=== PATIENT | female | born 1970 | race Caucasian/White ===

== ENCOUNTER 2017-03-19 08:45 | Inpatient (IN) | payer OTHER ==
[2017-03-19] VITALS (13 sets, daily range): BP systolic 118–138; BP diastolic 72–83; PULSE 75–91; TEMP 36.9–37.1; O2SAT 96–100; Ht 162.6 cm; Wt 80.2 kg
[~2017-03-19] VITALS: Ht 162.6 cm; Wt 80.2 kg
[2017-03-19 09:24] LABS: MEAN CELL VOLUME 88.9 fL (80-100); MEAN CORPUSCULAR HEMOGLOBIN 30.7 pg (25-34); MEAN CORPUSCULAR HGB CONC 34.5 g/dl (32-36); MEAN PLATELET VOLUME 11.1 fL (7.4-10.4); PLATELET COUNT 279 K/uL (130-400); RED BLOOD COUNT 4.95 M/uL (4.2-5.4); WHITE BLOOD COUNT 10.05 K/uL (4.8-10.8)
[2017-03-19 09:38] LABS: PROTHROMBIN TIME (PATIENT) 10.3 SECONDS (9.0-12.0)
[2017-03-19 09:42] LABS: BUN/CREATININE RATIO 12.6 (10-20); CREATININE 0.78 mg/dl (0.60-1.20); POTASSIUM 3.6 mmol/L (3.5-5.1)
[2017-03-19 09:47] LABS: ALB/GLOB RATIO 1.1 (0.9-2); CKMB/CK RATIO 10.6 (0-3.0)
--- NOTE | 2017-03-19 09:47 | DIAGNOSTIC IMAGING REPORT ---
CHEST ONE VIEW PORTABLE CLINICAL HISTORY: CHEST DISCOMFORT COMPARISON STUDY: No previous studies for comparison. FINDINGS: The heart is the upper limits of normal in size. There is no overt failure. There is no focal pulmonary consolidation. There are no pleural effusions.[ IMPRESSION: No active disease in the chest. Electronically signed by: Gonzalo Barnett M.D. 03/19/2017 9:45 AM Dictated Date/Time: 03/19/2017 9:45 AM
[2017-03-19] MEDS ORDERED: HEPARIN SOD 5000 UNIT/0.5 ML CARP ONE (10:15)
[2017-03-19] MEDS ORDERED: HEPARIN 25000 UNIT/500 ML D5W ONE (10:15)
[2017-03-19] MEDS ORDERED: ONDANSETRON INJ 2 MG/ML 2 ML VIAL IV PRN ×2 (10:15→12:00)
[2017-03-19] MEDS ORDERED: METOPROLOL TARTRATE 50 MG TAB PO ONE (10:15)
[2017-03-19] MEDS ORDERED: NITROGLYCERIN 0.4 MG SL PER TAB CHARGE SL PRN (10:15)
[2017-03-19] MEDS ORDERED: ASPIRIN 324 MG CHEW ONE (10:17)
[2017-03-19] MEDS ORDERED: SODIUM CHLORIDE 0.9% 1000ML 1,000 ML IV SCH (10:28)
[2017-03-19] MEDS ORDERED: DC ALL ANTICOAGULANTS ONE (10:30)
[2017-03-19] MEDS ORDERED: NiCARDipine HCL INJ 2.5 MG/ML 10 ML AMP ONE (10:35)
[2017-03-19] MEDS ORDERED: NITROGLYCERIN/D5W 100MCG/ML 20ML SYR ONE (10:36)
[2017-03-19] MEDS ORDERED: FENTANYL CITRATE INJ 50 MCG/1 ML 2 ML VIAL ONE (10:36)
[2017-03-19] MEDS ORDERED: MIDAZOLAM HCL 1 MG/ML 2ML VIAL ONE (10:36)
[2017-03-19] MEDS ORDERED: HEPARIN SOD (PORCINE) 1000 UNIT/ML 10 ML VIAL ONE (10:36)
--- NOTE | 2017-03-19 10:50 | CARDIOLOGY CONSULTATION ---
DATE OF CONSULTATION: 03/19/2017 [facility] REASON FOR CONSULTATION: Chest pain, non-STEMI. HISTORY OF PRESENT ILLNESS: This is a 46-year-old female with no prior history of heart disease and minimal risk factors. Last evening about 6:00 p.m. she developed severe retrosternal chest discomfort which lasted until approximately 11:00 p.m. and spontaneously resolved. She got up this morning and went to work. She told her coworkers about her experience and they insisted that she come to the Emergency Department. After admission here she has been pain free; however, her EKG suggests a recent inferior lateral wall infarct and her point of care cardiac troponin is 9. ALLERGIES: SULFA ANTIBIOTICS. PAST MEDICAL HISTORY: The patient has minimal past medical history. No prior history of heart disease, strokes, kidney disease, diabetes, hypertension, hypercholesterolemia. SOCIAL HISTORY: The patient lives with her . She is a nonsmoker. FAMILY MEDICAL HISTORY: Not significant for early ischemic heart disease. REVIEW OF SYSTEMS: A 10-point review of systems is negative except for the history of chief complaint. PHYSICAL EXAMINATION: GENERAL: She is alert and oriented in no acute distress. VITAL SIGNS: Blood pressure is 207/115, pulse is regular at 70. She is afebrile. HEENT: She is normocephalic. Pupils are equal and reactive to light. Extraocular muscles are intact bilaterally. NECK: The neck veins are flat. Carotids have good upstrokes bilaterally without bruits. Thyroid is nonpalpable. RESPIRATORY: Breath sounds equal bilaterally and clear to auscultation. CARDIOVASCULAR: Heart has a regular rhythm. Normal S1, S2. No S3, S4. No cardiac rubs or murmurs. GASTROINTESTINAL: Abdomen is soft, nontender without organomegaly. EXTREMITIES: Free of edema, digital clubbing, or cyanosis. NEUROLOGIC: Grossly intact. SKIN: Warm to touch. LYMPH NODES: Negative to palpation. LABORATORY DATA: Hemoglobin is 15.2, creatinine is 0.78, potassium is 3.6. Troponin is 9.65. IMPRESSION: 1. Non-STEMI. 2. Hypertension. RECOMMENDATIONS: The patient will receive Lopressor in the Emergency Department, which will hopefully improve her hypertension. We will provide additional medications as needed. She will also need a cardiac catheterization. I have explained the risk, benefit and intent of the procedure to her including the potential for a catheter based intervention such as balloon angioplasty or intracoronary stenting. The patient is willing to proceed. She will sign a consent and will be taken to the cardiac catheterization lab. I will have further recommendations following the above.
[2017-03-19 10:57] LABS: MAGNESIUM 2.2 mg/dl (1.8-2.4)
[2017-03-19] MEDS ORDERED: METOPROLOL TARTRATE 1 MG/ML VIAL ONE ×2 (11:17→11:33)
[2017-03-19] MEDS ORDERED: HydrALAZINE HCL 20 MG/ML VIAL ONE ×2 (11:24→11:36)
[2017-03-19 11:28] LABS: ESTIMATED AVERAGE GLUCOSE 103 mg/dl; HA1C FLAG Normal (Normal)
[2017-03-19] MEDS ORDERED: SODIUM CHLORIDE 0.9% 1000ML 250 ML IV PRN (11:46)
--- NOTE | 2017-03-19 11:46 | History and Physical ---
History & Physical Date & Time of Service: Mar 19, 2017 at 11:08 Chief Complaint: Possible Small Heart Attack Primary Care Physician: America Lazaro M.D. (MEDICAL) History of Present Illness Source: patient This is a 46yo female with no PMH who presents after experiencing chest pain and SOB last evening. Patient was in her normal state of health until 6pm, when she woke up from a nap with severe pressure on her central chest with radiation down both arms. Describes pain in arms as aching and too heavy to lift. Pain did not subside with rest. When patient got up and started to walk towards kitchen, she noticed that she was short of breath and nauseous. Had 2 episodes of vomiting over the next few hours while doing chores around the house. Went to bed early to rest in a reclined position. Pain spontaneously resolved around 11pm and patient was able to sleep. Went to work this morning and was encouraged to call her doctor about the prior event. Was then encouraged to come to the ER for further evaluation. Patient denies any previous heart disease, chest pain or HTN. Does not take any medications. Denies any current headache, CP, SOB, sweating, nausea/vomiting. POC troponin is 9 and an EKG suggests a possible recent inferior lateral wall infarct. Patient was taken to pathology laboratory aide before exam could be completed. Will resume once patient is on the floor. Social History Smoking Status: Never Smoker Multi-Drug Resistant Organisms History of MDRO: No Allergies Coded Allergies: Sulfa Antibiotics (Unverified Adverse Reaction, Intermediate, swelling, ) Home Medications No Active Prescriptions or Reported Meds Review of Systems Ten systems reviewed and negative except as noted in the HPI. Physical Exam Vital Signs Date Time Temp Pulse Resp B/P (MAP) Pulse Ox O2 Delivery O2 Flow Rate FiO2 03/19/17 10:26 85 16 226/126 98 Room Air 03/19/17 10:22 97 Room Air 03/19/17 09:56 97 Room Air 03/19/17 09:56 97 Room Air 03/19/17 09:54 70 16 207/115 97 Room Air 03/19/17 09:45 74 03/19/17 09:18 74 03/19/17 09:01 36.6 77 16 197/136 98 Room Air General Appearance: WD/WN, no apparent distress Head: normocephalic Eyes: normal inspection, PERRL ENT: hearing grossly normal Neck: supple, no adenopathy, trachea midline Respiratory/Chest: chest non-tender, lungs clear, normal breath sounds, no respiratory distress, no accessory muscle use Cardiovascular: regular rate, rhythm, no murmur, normal peripheral pulses Abdomen/GI: normal bowel sounds, non tender, soft, no organomegaly Extremities/Musculoskelatal: normal inspection, no calf tenderness, normal capillary refill, no pedal edema Neurologic/Psych: alert, normal mood/affect, oriented x 3 Skin: normal color, warm/dry Diagnostics Laboratory Results Results Past 24 Hours Test 03/19/17 09:05 03/19/17 09:23 Range/Units White Blood Count 10.05 4.8-10.8 K/uL Red Blood Count 4.95 4.2-5.4 M/uL Hemoglobin 15.2 12.0-16.0 g/dL Hematocrit 44.0 37-47 % Mean Corpuscular Volume 88.9 80-100 fL Mean Corpuscular Hemoglobin 30.7 25-34 pg Mean Corpuscular Hemoglobin Concent 34.5 32-36 g/dl RDW Standard Deviation 42.3 36.4-46.3 fL RDW Coefficient of Variation 13.1 11.5-14.5 % Platelet Count 279 130-400 K/uL Mean Platelet Volume 11.1 7.4-10.4 fL Prothrombin Time 10.3 9.0-12.0 SECONDS Prothromb Time International Ratio 1.0 0.9-1.1 Activated Partial Thromboplast Time 27.1 21.0-31.0 SECONDS Partial Thromboplastin Ratio 1.0 D-Dimer 190 0-500 ug/L FEU Sodium Level 137 136-145 mmol/L Potassium Level 3.6 3.5-5.1 mmol/L Chloride Level 106 98-107 mmol/L Carbon Dioxide Level 25 21-32 mmol/L Anion Gap 6.0 3-11 mmol/L Blood Urea Nitrogen 10 7-18 mg/dl Creatinine 0.78 0.60-1.20 mg/dl Est Creatinine Clear Calc Drug Dose 92.4 ml/min Estimated GFR () 104.9 Estimated GFR (Non- 90.5 BUN/Creatinine Ratio 12.6 10-20 Random Glucose 91 70-99 mg/dl Calcium Level 9.0 8.5-10.1 mg/dl Magnesium Level 2.2 1.8-2.4 mg/dl Total Bilirubin 0.7 0.2-1 mg/dl Aspartate Amino Transf (AST/SGOT) 65 15-37 U/L Alanine Aminotransferase (ALT/SGPT) 21 12-78 U/L Alkaline Phosphatase 62 45-117 U/L Total Creatine Kinase 416 26-192 U/L Creatine Kinase MB 44.0 0.5-3.6 ng/ml Creatine Kinase MB Ratio 10.6 0-3.0 Troponin I 11.000 0-0.045 ng/ml Total Protein 7.6 6.4-8.2 gm/dl Albumin 3.9 3.4-5.0 gm/dl Globulin 3.7 2.5-4.0 gm/dl Albumin/Globulin Ratio 1.1 0.9-2 Bedside Troponin I 9.650 0-0.045 ng/ml CXR normal EKG Normal sinus rhythm Left axis deviation Minimal voltage criteria for LVH, may be normal variant Inferior infarct , age undetermined T wave abnormality, consider anterolateral ischemia No prior EKG available Impression Assessment and Plan This is a 46yo female with no PMH who presents after experiencing chest pain and SOB last evening. Mild CAD: -Initial troponin of 11. -EKG-Normal sinus rhythm with LAD, Minimal voltage criteria for LVH, Inferior infarct , age undetermined T wave abnormality, consider anterolateral ischemia -CXR- WNL -Aspirin and Lopressor given -Cardio consulted and cardiac cath performed by Dr. Snowden -Post-cath diagnosis of mild CAD, normal except for very distal branch of RCA Medical management recommended -Echo obtained. EF of 65-70% with mild LVH -Continue aspirin, metoprolol and high intensity statin -Monitor on tele Hypertensive Emergency: -No h/o HTN -BP 207/115 on admission -Evidence of end organ damage with elevated troponin -Given 25 mg lopressor prior to cardiac catheterization -Metoprolol increased to 50mg BID, Lisinopril 10 added -Will monitor and adjust as necessary Non-sustained Vtach on EKG: -Per ER oc, patient with a few seconds of VT -Given Mg and K with IVF -On tele Code status: FULL PCP: [place] Dispo: Telemetry. Discharge planning ordered. Level of Care Telemetry Advanced Directives Existing Living Will: No Existing Power of All Round [place]: No Resuscitation Status FULL RESUSCITATION VTE Prophylaxis VTE Risk Assessment Done? Y/N: Yes Risk Level: Moderate Given or contraindicated: Other Anticoagulation
[2017-03-19] MEDS ORDERED: ATROPINE SULFATE 0.1 MG/ML 5ML SYR IV PRN (12:00)
--- NOTE | 2017-03-19 12:04 | Cardiac Catheterization ---
Procedure Note Procedure Date Mar 19, 2017. Pre-Procedure Diagnosis Non STEMI AUC Score 9 Post-Procedure Diagnosis Mild CAD, Normal LV Systolic Function, Elevated Intracardiac Pressures Procedure(s) Performed Coronary Angiography, Left Heart Cath, LV Angiography Online Merchand[employer] Coordinator Dr. Snowden Event Sales Assistant(s) None Estimated Blood Loss None Medication(s) Hydralazine, Metoprolol, Versed, Lidocaine 1% Summary of Findings Normal coronaries except for a very distal branch of the RCA. Medical management. Hemodynamics Rest Ao: 191/105 Final Ao: 163/88 LV: 174/23 Recommendations Medical therapy and/or Counseling Specimens None Radiation Exposure (mGy) 1235 Contrast (mls) 115 Fluids (cc crystalloids) 60 Procedural Complication(s) None Disposition [employer] Consultant Holding/Recovery ACC Data Cardiac Status Clinical evaluation leading to the procedure CAD Presntation: Non STEMI Anginal Classification: No symptoms Heart Failure: No Cardiogenic Shock w/in 24Hrs: No Cardiac Arrest w/in 24Hrs: No Imaging studies past 6 months: Yes Stress studies past 6 months: No Cardiac CTA: No Coronary Anatomy Dominant: Right Left Main (% Stenosis): Normal LAD (% Stenosis): Normal Circumflex (% Stenosis): Normal R PDA (% Stenosis): Distal (90) Left Ventricular Angiography EF (%): 60 Wall Motion: Apical (Hypokinetic) Mitral Regurgitation: None Diagnostic Status: Urgent Closure Device Percutaneous Entry Location: Femoral Closure Device: Mynx Recommendations: Medical therapy and/or Counseling
--- NOTE | 2017-03-19 12:46 | ECHOCARDIOGRAM REPORT ---
*NOTICE TO RECEIVING [employer] This information is strictly Confidential and protected under [place] law. [place] law prohibits you from making any further disclosure of this information unless further disclosure is expressly permitted by the written consent of the person to whom it pertains or is authorized by law. A general authorization for the release of medical or other information is not sufficient for this purpose. Hospital accepts no responsibility if the information is made available to any other person, INCLUDING THE PATIENT. Interpretation Summary * Name: STEWART RODAS Study Date: 03/19/2017 10:29 AM BP: 207/115 mmHg * Patient Location: [facility] HR: 70 * : 1970 (M/d/yyyy) Gender: Female Height: 64 in * Age: 46 yrs Ethnicity: CA Weight: 180 lb * Ordering Physician: Kulwinder Dent * Performed By: Lexus Lipscomb * * Reason For Study: CHEST PAIN * BSA: 1.9 m2 * -- Conclusions -- * The left ventricle is normal in size. * There is mild concentric left ventricular hypertrophy. * There is mild to moderate apical wall hypokinesis. * Ejection Fraction = 65-70%. * The right ventricular systolic function is normal. Procedure Details * A complete two-dimensional transthoracic echocardiogram was performed (2D, M-mode, Doppler and color flow Doppler). Left Ventricle * The left ventricle is normal in size. * There is mild concentric left ventricular hypertrophy. * Ejection Fraction = 65-70%. * There is mild to moderate apical wall hypokinesis. Right Ventricle * The right ventricle is normal size. * The right ventricular systolic function is normal. Atria * The left atrial size is normal. * Right atrial size is normal. * The interatrial septum is intact with no evidence for an atrial septal defect. Mitral Valve * The mitral valve is normal in structure and function. Tricuspid Valve * The tricuspid valve is normal in structure and function. Aortic Valve * The aortic valve is normal in structure and function. Pulmonic Valve * The pulmonic valve is not well visualized. * There is no significant pulmonary regurgitation. Great Vessels * The aortic root and proximal ascending aorta are normal sized. MMode 2D Measurements and Calculations IVSd 1.1 cm IVSs 1.9 cm LVIDd 4.9 cm LVIDs 3.0 cm LVPWd 1.3 cm LVPWs 2.1 cm IVS/LVPW 0.82 FS 39.2 % EDV(Teich) 111.0 ml ESV(Teich) 33.8 ml EF(Teich) 69.6 % EDV(cubed) 115.2 ml ESV(cubed) 25.9 ml EF(cubed) 77.5 % % IVS thick 77.7 % % LVPW thick 57.5 % LV mass(C)d 225.5 grams LV mass(C)dI 120.5 grams/m\S\2 LV mass(C)s 261.7 grams LV mass(C)sI 139.9 grams/m\S\2 SV(Teich) 77.2 ml SI(Teich) 41.3 ml/m\S\2 SV(cubed) 89.3 ml SI(cubed) 47.8 ml/m\S\2 ACS 1.6 cm LA dimension 3.9 cm asc Aorta Diam 3.4 cm LVOT diam 1.9 cm LVOT area 2.9 cm\S\2 LVAd ap4 25.2 cm\S\2 LVLd ap4 6.8 cm EDV(MOD-sp4) 76.0 ml EDV(sp4-el) 78.8 ml LVAs ap4 12.1 cm\S\2 LVLs ap4 5.0 cm ESV(MOD-sp4) 24.1 ml ESV(sp4-el) 24.9 ml EF(MOD-sp4) 68.3 % EF(sp4-el) 68.4 % LVAd ap2 26.0 cm\S\2 LVLd ap2 7.3 cm EDV(MOD-sp2) 75.0 ml EDV(sp2-el) 78.9 ml LVAs ap2 13.3 cm\S\2 LVLs ap2 6.0 cm ESV(MOD-sp2) 25.5 ml ESV(sp2-el) 25.0 ml EF(MOD-sp2) 66.1 % EF(sp2-el) 68.3 % LVLd %diff 6.3 % EDV(MOD-bp) 78.7 ml LVLs %diff 16.6 % ESV(MOD-bp) 26.3 ml EF(MOD-bp) 66.6 % SV(MOD-sp4) 51.9 ml SI(MOD-sp4) 27.7 ml/m\S\2 SV(MOD-sp2) 49.6 ml SI(MOD-sp2) 26.5 ml/m\S\2 SV(MOD-bp) 52.5 ml SI(MOD-bp) 28.0 ml/m\S\2 SV(sp4-el) 53.9 ml SI(sp4-el) 28.8 ml/m\S\2 SV(sp2-el) 53.9 ml SI(sp2-el) 28.8 ml/m\S\2 Doppler Measurements and Calculations MV E max edgar 89.8 cm/sec MV A max edgar 78.9 cm/sec MV E/A 1.1 MV dec time 0.23 sec Ao V2 max 117.4 cm/sec Ao max PG 5.5 mmHg Ao max PG (full) 3.1 mmHg JJUU(V,A) 1.9 cm\S\2 JUJU(V,D) 1.9 cm\S\2 LV V1 max PG 2.4 mmHg LV V1 max 77.0 cm/sec MR max edgar 278.2 cm/sec MR max PG 31.0 mmHg PA V2 max 76.0 cm/sec PA max PG 2.3 mmHg TR max edgar 182.0 cm/sec
--- NOTE | 2017-03-19 13:36 | EMERGENCY ROOM VISIT NOTE ---
History First contact with patient: 09:23 Chief Complaint: CARDIAC ASSESSMENT Stated Complaint: POSSIBLE SMALL HEART ATTACK Nursing Triage Summary: PT HERE WITH BILATERAL ARM HEAVINESS AND CHEST DISCOMFORT, ONE EMESIS SINCE LAST PM. PT STATES SX ARE IMPROVED THIS AM. PT STATES FELT SOMEWHAT SOB. PT DENIES ANY MEDICAL HISTORY OR PROBLEMS. PT STATES FELT IF SHE COULD NOT USE HER ARMS LAST PM. History of Present Illness The patient is a 46 year old female who presents to the Emergency Room with complaints of substernal chest pain and bilateral upper extremity heaviness. The patient reports that she noticed discomfort last evening around 6 PM. She then laid down for a short nap before getting up to fix dinner. The patient reports that the pain then returned and was much worse. She also felt nauseated. She denied any diaphoresis, headache, jaw pain, neck pain or back pain. She told her that she did not feel well. The patient then went to bed and did not have any additional chest discomfort around 11 PM. When she woke up this morning, she reported mild persistent and intermittent substernal pain radiating to the left shoulder. The patient presents to the emergency department for further evaluation. The patient denies any personal cardiopulmonary history. She denies tobacco use. The patient reports that she is otherwise healthy except for history of migraines. She denies any strong family history of coronary artery disease or pulmonary emboli. The patient rates her discomfort a 2 out of 10. Review of Systems HEENT: Denies dizziness, visual problems, hearing loss, tinnitus. Denies difficulty swallowing or oral lesions. PULMONARY: Denies cough, shortness of breath, sputum production or hemoptysis. CARDIOVASCULAR: Denies preceding palpitations, dyspnea on exertion, orthopnea or peripheral edema. GASTROINTESTINAL: Denies diarrhea, constipation, vomiting, or abdominal pain. GENITOURINARY: Denies dysuria, frequency, urgency or nocturia. NEUROLOGIC: Denies history of epilepsy, CVA, TIA or chronic headaches. MUSCULOSKELETAL: Denies history of joint tenderness/swelling. SKIN: Denies rashes or lesions. PSYCHIATRIC: Denies history of depression or mental illness. HEMATOLOGIC: No ecchymosis or petechiae noted. ENDOCRINE: Denies history of diabetes or thyroid disorders. Past Medical/Surgical History Medical Problems: (1) NSTEMI (non-ST elevated myocardial infarction) Medical Problems: (1) Migraines (2) NSTEMI (non-ST elevated myocardial infarction) Surgical Problems: (1) No history of previous surgery Family History Unremarkable Social History Smoking Status: Never Smoker Alcohol Use: occasionally Marital Status: Housing Status: lives with family Occupation Status: employed Current/Historical Medications No Active Prescriptions or Reported Meds Physical Exam Vital Signs Date Time Temp Pulse Resp B/P (MAP) Pulse Ox O2 Delivery O2 Flow Rate FiO2 03/19/17 13:00 82 16 114/79 (91) 98 Room Air 03/19/17 12:45 84 16 113/86 (95) 98 Room Air 03/19/17 12:30 85 16 125/68 (87) 98 Room Air 03/19/17 12:15 85 16 124/69 (87) 100 Room Air 03/19/17 12:00 87 16 130/68 (88) 100 Room Air 03/19/17 11:55 88 16 132/72 (92) 100 Room Air 03/19/17 11:50 Room Air 03/19/17 11:45 Room Air 03/19/17 11:40 83 16 159/89 (112) 97 Room Air 03/19/17 10:26 85 16 226/126 98 Room Air 03/19/17 10:22 97 Room Air 03/19/17 09:56 97 Room Air 03/19/17 09:56 97 Room Air 03/19/17 09:54 70 16 207/115 97 Room Air 03/19/17 09:45 74 03/19/17 09:18 74 03/19/17 09:01 36.6 77 16 197/136 98 Room Air Pain Rating (0-10): 1.0 Physical Exam CONSTITUTIONAL: Healthy and well nourished. Alert and oriented X 3 with positive affect. Patient does not appear in any acute distress on exam. HEENT: Normocephalic, atraumatic. Pupils equal, round and reactive. No scleral icterus or conjunctival injection. NECK: Full active range of motion without discomfort. No JVD or carotid bruits. RESPIRATORY: Clear to auscultation bilaterally with no wheezing, crackles, rhonchi or stridor. CARDIOVASCULAR: Regular rate and rhythm with no murmurs, rubs or gallops. GASTROINTESTINAL: Bowel sounds present in all quadrants. MUSCULOSKELETAL: Full range of motion of all joints without discomfort. No tenderness to palpation across the left anterior chest wall or costochondral joints. No worsening pain with range of motion of the shoulders. INTEGUMENTARY: No rash or other significant dermatologic conditions noted. HEMATOLOGIC: No ecchymosis or petechiae noted. NEUROLOGIC: Cranial nerves II-XII grossly intact. No focal neurologic deficits noted. Medical Decision & Procedures ER Provider Diagnostic Interpretation: My interpretation of an ECG shows inverted T waves in anterolateral leads My interpretation of a portal chest x-ray does not show any consolidations, pneumothorax or cardiomegaly. Radiologist report is as follows: CHEST ONE VIEW PORTABLE CLINICAL HISTORY: CHEST DISCOMFORT COMPARISON STUDY: No previous studies for comparison. FINDINGS: The heart is the upper limits of normal in size. There is no overt failure. There is no focal pulmonary consolidation. There are no pleural effusions.[ IMPRESSION: No active disease in the chest. Laboratory Results 03/19/17 09:05 03/19/17 09:05 Test 03/19/17 09:05 03/19/17 09:23 Red Blood Count 4.95 M/uL (4.2-5.4) Mean Corpuscular Volume 88.9 fL (80-100) Mean Corpuscular Hemoglobin 30.7 pg (25-34) Mean Corpuscular Hemoglobin Concent 34.5 g/dl (32-36) RDW Standard Deviation 42.3 fL (36.4-46.3) RDW Coefficient of Variation 13.1 % (11.5-14.5) Mean Platelet Volume 11.1 fL (7.4-10.4) Prothrombin Time 10.3 SECONDS (9.0-12.0) Prothromb Time International Ratio 1.0 (0.9-1.1) Activated Partial Thromboplast Time 27.1 SECONDS (21.0-31.0) Partial Thromboplastin Ratio 1.0 D-Dimer 190 ug/L FEU (0-500) Anion Gap 6.0 mmol/L (3-11) Est Creatinine Clear Calc Drug Dose 92.4 ml/min Estimated GFR () 104.9 Estimated GFR (Non- 90.5 BUN/Creatinine Ratio 12.6 (10-20) Estimated Average Glucose 103 mg/dl Hemoglobin A1c 5.2 % (4.5-5.6) Calcium Level 9.0 mg/dl (8.5-10.1) Magnesium Level 2.2 mg/dl (1.8-2.4) Total Bilirubin 0.7 mg/dl (0.2-1) Aspartate Amino Transf (AST/SGOT) 65 U/L (15-37) Alanine Aminotransferase (ALT/SGPT) 21 U/L (12-78) Alkaline Phosphatase 62 U/L (45-117) Total Creatine Kinase 416 U/L (26-192) Creatine Kinase MB 44.0 ng/ml (0.5-3.6) Creatine Kinase MB Ratio 10.6 (0-3.0) Troponin I 11.000 ng/ml (0-0.045) Total Protein 7.6 gm/dl (6.4-8.2) Albumin 3.9 gm/dl (3.4-5.0) Globulin 3.7 gm/dl (2.5-4.0) Albumin/Globulin Ratio 1.1 (0.9-2) Bedside Troponin I 9.650 ng/ml (0-0.045) The above labs were reviewed. Bedside troponin was 9.65, with hospital labs showing a troponin of 11. CK-MB and CPK are also elevated. D-dimer is normal, as is remaining electrolytes. Medications Administered Medications (Trade) Dose Ordered Sig/Jolanta Route Start Time Stop Time Status Last Admin Dose Admin Metoprolol Tartrate (Lopressor Tab) 25 mg NOW ONCE PO 03/19/17 10:15 03/19/17 10:16 DC 03/19/17 10:25 25 MG Aspirin (Aspirin Chew) 324 mg STK-MED ONCE .ROUTE 03/19/17 10:17 03/19/17 10:18 DC 03/19/17 10:21 324 MG ED Course Patient history and physical exam were performed. Nurse's notes were reviewed. Vital signs were reviewed, showing a blood pressure 197/136. Pulse rate in O2 saturation are otherwise normal. The patient does not appear in any acute distress. IV access was established prior to my exam, and labs were drawn and ordered per nursing protocol. Immediately after I discussed presenting symptoms with the patient, and performed a physical exam, I was advised by the nurse that the patient's bedside troponin was markedly elevated. Review of the ECG shows anterolateral ischemia. At this point, the patient was administered aspirin 325 mg. I then was notified by our ECG monitor that the patient also had a short duration of ventricular tachycardia, followed by some PVCs. I did review that monitor strip which does indeed show evidence for ventricular tachycardia of less than 2 seconds. At this point, a stat consultation with Dr. Snowden, [facility] orthopedic designer was obtained. Dr. Snowden came to the emergency department, and will be taking the patient for cardiac catheterization Dr. Snowden requested no initial heparin dosing, and reported that he would manage the patient's blood pressure. I also called the [facility] hospitalist service to advise them of the patient's condition and plan for cardiac catheterization. Please see their dictations for further treatment and final disposition. Medical Decision Patient presents to the emergency department with complaint of substernal chest pain with bilateral upper extremity heaviness. The patient does have a markedly elevated troponin, an ECG showing anterolateral ischemia. There was no ST elevation, making this an NSTEMI. D-dimer is normal, therefore I do not suspect pulmonary emboli. The patient has no evidence for pneumothorax or pneumonia on chest x-ray. Medication Reconcilliation Current Medication List: was personally reviewed by me Blood Pressure Screening Patient's blood pressure: Elevated blood pressure Blood pressure disposition: Referred to PCP Impression Primary Impression: NSTEMI (non-ST elevated myocardial infarction) Critical Care I have personally spent greater than 30 minutes of critical care time in the direct management of this patient. This includes bedside care, interpretation of diagnostic studies, and testing, discussion with consultants, patient, and family members, and other required patient management activities. This 30 minutes is in excess of all separately billable procedures. Departure Information Prescriptions No Active Prescriptions or Reported Meds Referrals America Lazaro M.D. (MEDICAL) (PCP) Patient Instructions My [facility]
[2017-03-19] MEDS: SODIUM CHLORIDE 0.9% 1000ML 1,000 ML IV SCH ×2 (14:18→21:39)
[2017-03-19] MEDS: MAGNESIUM SULFATE 1GM / D5W 1 GM in PREMIXED IN D5W 100 ML IV SCH ×2 (14:18→15:37)
[2017-03-19] MEDS: POTASSIUM CHLR 10 MEQ / WTR 10 MEQ in PREMIXED WATER 100 ML IV SCH ×2 (14:18→15:37)
[2017-03-19] MEDS ORDERED: POTASSIUM CHLORIDE 20 MEQ TABCR PO ONE (15:00)
[2017-03-19] MEDS ORDERED: LISINOPRIL 10 MG TAB PO ONE (15:00)
[2017-03-19] MEDS: ACETAMINOPHEN 325 MG TAB PO PRN ×2 (15:43→21:40)
[2017-03-19 16:39] LABS: CKMB/CK RATIO 9.3 (0-3.0)
--- NOTE | 2017-03-19 16:55 | History and Physical ---
History & Physical Date of Service Mar 19, 2017. History & Physical This is a 46 year old female with no PMH presented with chest pain the night prior to arrival; she stated that the pain was very nonspecific, towards the center of her chest with no radiation. She tried to work through it, but there was some lingering chest pain so she presented to the ER this morning; found to have significant elevation in her blood pressure SBP >200/100; her initial cardiac enzymes came back >9.0. She was given metoprolol and immediately taken to a lab specialist. Catheterization only showed mild CAD at the distal RCA and medical management was recommended. VITALS: Last Vital Signs Documentation Date Time Temp Pulse Resp B/P (MAP) Pulse Ox O2 Delivery O2 Flow Rate FiO2 03/19/17 16:00 Room Air 03/19/17 15:30 82 16 133/77 (95) 100 03/19/17 15:15 36.9 GEN: no acute distress, resting comfortably HEENT: NC/AT, EOMI CVS: +S1, S2, RRR LUNGS: CTA b/l, no wheezing ABD: soft, NT/ND EXT: no edema NEURO: CN II-XII Mild CAD pre-cath diagnosis was NSTEMI, though only mild CAD was seen on cath, no stenting, no procedures necessary medical management recommended, so we will continue aspirin 81mg, b-nery, high intensity statin at this time monitor in tele appreciate cardiology input Hypertensive Urgency elevated troponin could have been from hypertensive urgency with SBP > 200/100 given metoprolol and dose is being adjusted currently to 50mg BID as per cardiology, Lisinopril added monitor overnight and adjust as needed NSVT patient had a few seconds of V-tach as per ED doctor when she arrived given IV potassium and magnesium monitor in tele
[2017-03-19] MEDS ORDERED: METOPROLOL TARTRATE 25 MG TAB PO SCH (21:00)
[2017-03-19] MEDS: METOPROLOL TARTRATE 50 MG TAB PO SCH (21:49)
[2017-03-20 01:58] LABS: CKMB/CK RATIO 9.8 (0-3.0)
[2017-03-20] MEDS: ACETAMINOPHEN 325 MG TAB PO PRN ×2 (03:47→16:48)
[2017-03-20 04:06] VITALS: BP 155/84; PULSE 83; TEMP 36.9; O2SAT 97
[2017-03-20 07:28] LABS: CHOLESTEROL/HDL RATIO 4.2
[2017-03-20 07:38] VITALS: BP 152/83; PULSE 78; TEMP 37; O2SAT 97
[2017-03-20] MEDS: ASPIRIN 81 MG ECTAB PO SCH (08:54)
[2017-03-20] MEDS: METOPROLOL TARTRATE 50 MG TAB PO SCH ×2 (08:55→20:46)
[2017-03-20] MEDS ORDERED: ATORVASTATIN 40 MG TAB PO SCH (09:00)
[2017-03-20] MEDS ORDERED: ASPIRIN 81 MG ECTAB PO SCH (09:00)
[2017-03-20] MEDS ORDERED: LISINOPRIL 10 MG TAB PO SCH (09:00)
[2017-03-20] MEDS: ATORVASTATIN 10 MG TAB PO SCH (09:06)
[2017-03-20] MEDS ORDERED: LISINOPRIL 20 MG TAB PO SCH (09:30)
--- NOTE | 2017-03-20 10:01 | PROGRESS NOTE ---
DATE: 03/20/2017 SUBJECTIVE: The patient is a 46-year-old female who presented with a non-STEMI due to malignant hypertension. She was markedly hypertensive in the Emergency Department which has progressively improved with treatment. Her cardiac catheterization essentially shows normal coronary arteries except for very distal tiny branch of the PDA that was most likely the index artery. I believe this pathology is associated to untreated hypertension. She has had no further chest pain since admission. She has no other complaints today. OBJECTIVE: GENERAL: She is alert and oriented, no acute distress. VITAL SIGNS: Blood pressure 150/80, pulse is regular at 78. She is afebrile. HEENT: She is normocephalic. Pupils are equal and reactive to light. Extraocular muscles are intact bilaterally. NECK: The neck veins are flat. Carotids have good upstrokes bilaterally without bruits. Thyroid is nonpalpable. RESPIRATORY: Breath sounds equal bilaterally and clear to auscultation. CARDIOVASCULAR: Heart has a regular rhythm. Normal S1, S2. No S3, S4. No cardiac rubs, murmurs. GASTROINTESTINAL: Abdomen is soft, nontender without organomegaly. EXTREMITIES: Free of edema, digit clubbing, or cyanosis. NEUROLOGIC: Grossly intact. SKIN: Warm to touch. LYMPH NODES: Negative to palpation. IMPRESSION: 1. Non-ST elevation myocardial infarction. 2. Malignant hypertension. RECOMMENDATIONS: I bump up her lisinopril to 20 mg daily to better control her hypertension. Her lipids panel indicates that she does not have severe hypercholesterolemia and at this point I think it is best that we lower her from atorvastatin of 80 daily to 10 mg daily. I would not put her on Plavix because of her hypertension. I would continue with 81 mg of aspirin. She should ambulate today in the hallway. If all goes well, then we can discharge her tomorrow to outpatient followup.
[2017-03-20 11:28] VITALS: BP 155/86; PULSE 67; TEMP 37; O2SAT 96
--- NOTE | 2017-03-20 11:39 | Progress Note ---
Subjective Date of Service: Mar 20, 2017. Subjective Pt evaluation today including: conversation w/ patient, physical exam, lab review, review of studies, review of inpatient medication list Saw/examined the patient in room 230 No problems/issues to note today Denies chest pain/shortness of breath Review of Systems Constitutional: No fever, No chills Respiratory: No shortness of breath, No dyspnea on exertion Cardiac: No chest pain (resolved) Abdomen: No pain, No nausea, No vomiting, No diarrhea Medications Current Inpatient Medications Medications (Trade) Dose Ordered Sig/Jolanta Route Start Time Stop Time Status Last Admin Dose Admin Ondansetron HCl (Zofran Inj) 4 mg Q6H PRN IV 03/19/17 10:15 04/18/17 10:14 Nitroglycerin (Nitrostat Tab) 0.4 mg UD PRN SL 03/19/17 10:15 04/18/17 10:14 Acetaminophen (Tylenol Tab) 650 mg Q4H PRN PO 03/19/17 12:00 04/18/17 11:59 03/20/17 03:47 650 MG Sodium Chloride 250 ml @ 999 mls/hr Q16M PRN IV 03/19/17 11:46 04/18/17 11:45 Atropine Sulfate (Atropine Sulfate 0.1MG/Ml Inj) 0.6 mg PRN PRN IV 03/19/17 12:00 04/18/17 11:59 Aspirin (Ecotrin Tab) 81 mg QAM PO 03/20/17 09:00 04/19/17 08:59 03/20/17 08:54 81 MG Metoprolol Tartrate (Lopressor Tab) 50 mg Q12 PO 03/19/17 21:00 04/18/17 20:59 03/20/17 08:55 50 MG Atorvastatin Calcium (Lipitor Tab) 10 mg QAM PO 03/20/17 09:30 04/19/17 09:29 03/20/17 09:06 10 MG Lisinopril (Zestril Tab) 20 mg QAM PO 03/20/17 09:30 04/19/17 09:29 03/20/17 09:06 20 MG Objective Vital Signs Date Time Temp Pulse Resp B/P (MAP) Pulse Ox O2 Delivery O2 Flow Rate FiO2 03/20/17 11:28 37.0 67 18 155/86 (109) 96 Room Air 03/20/17 08:00 Room Air 03/20/17 07:38 37.0 78 18 152/83 (106) 97 Room Air 03/20/17 04:06 36.9 83 16 155/84 (107) 97 2.0 03/20/17 04:00 Room Air 03/20/17 00:00 Room Air 03/19/17 23:40 37.0 82 15 130/77 (94) 97 Room Air 03/19/17 20:00 Room Air 03/19/17 19:18 37.1 75 20 120/72 (88) 97 Room Air 03/19/17 18:30 77 18 118/78 (91) 96 Room Air 03/19/17 17:30 84 16 129/77 (94) 98 Room Air 03/19/17 16:30 84 16 119/73 (88) 97 Room Air 03/19/17 16:00 Room Air 03/19/17 15:30 82 16 133/77 (95) 100 Room Air 03/19/17 15:15 36.9 82 20 128/83 (98) 100 Room Air 03/19/17 15:00 87 16 136/77 (96) Room Air 03/19/17 14:30 91 18 138/73 (94) 100 Room Air 03/19/17 14:15 87 16 134/77 (96) 99 Room Air 03/19/17 14:00 84 16 129/72 (91) 99 Room Air 03/19/17 13:49 36.9 86 16 124/77 (93) 99 Room Air 03/19/17 13:49 36.9 86 99 124/77 99 Room Air 03/19/17 13:00 82 16 114/79 (91) 98 Room Air 03/19/17 12:45 84 16 113/86 (95) 98 Room Air 03/19/17 12:30 85 16 125/68 (87) 98 Room Air 03/19/17 12:15 85 16 124/69 (87) 100 Room Air 03/19/17 12:00 87 16 130/68 (88) 100 Room Air 03/19/17 11:55 88 16 132/72 (92) 100 Room Air 03/19/17 11:50 Room Air 03/19/17 11:45 Room Air 03/19/17 11:40 83 16 159/89 (112) 97 Room Air Physical Exam General Appearance: no apparent distress Respiratory/Chest: lungs clear, normal breath sounds, no respiratory distress, no accessory muscle use Cardiovascular: regular rate, rhythm, no edema, no murmur Abdomen: normal bowel sounds, non tender, soft Extremities: normal inspection, no pedal edema Neurologic/Psychiatric: no motor/sensory deficits, alert, normal mood/affect Laboratory Results Last 24 Hours Test 03/19/17 15:50 03/20/17 01:02 03/20/17 06:25 Total Creatine Kinase 306 U/L 264 U/L Creatine Kinase MB 28.5 ng/ml 25.9 ng/ml Creatine Kinase MB Ratio 9.3 9.8 Troponin I 7.970 ng/ml 7.010 ng/ml Triglycerides Level 140 mg/dl Cholesterol Level 173 mg/dl HDL Cholesterol 41 mg/dl LDL Cholesterol, Calculated 104 mg/dl VLDL Cholesterol, Calculated 28 mg/dl Cholesterol/HDL Ratio 4.2 Assessment and Plan This is a 46 year old female with no PMH presented with an NSTEMI NSTEMI patient presented with chest pain, troponin >11 on admission cardiac catheterization done - showed mostly normal coronaries except very distal RCA no stenting could be performed, medical management was recommended was started on Lipitor, which is decreased to 10mg, aspirin 81mg, metoprolol and lisinopril currently chest pain free cardiac enzymes trending down Malignant Hypertension patient presented with BP > 200/100 given Lopressor and Lisinopril with good response Lisinopril dose increased to 20mg monitor BP and adjust accordingly DVT ppx ambulation FULL CODE
[2017-03-20 15:25] VITALS: BP 155/89; PULSE 72; TEMP 37.5; O2SAT 98
[2017-03-20 18:58] VITALS: BP 158/95; PULSE 77; TEMP 36.9; O2SAT 98
[2017-03-21] VITALS (7 sets, daily range): BP systolic 124–173; BP diastolic 73–100; PULSE 63–79; TEMP 36.9–37.1; O2SAT 96–99
[2017-03-21 07:51] LABS: HEMATOCRIT 40.9 % (37-47); MEAN CELL VOLUME 91.3 fL (80-100); MEAN CORPUSCULAR HEMOGLOBIN 29.7 pg (25-34); MEAN CORPUSCULAR HGB CONC 32.5 g/dl (32-36); MEAN PLATELET VOLUME 11.4 fL (7.4-10.4); PLATELET COUNT 229 K/uL (130-400); RED BLOOD COUNT 4.48 M/uL (4.2-5.4); WHITE BLOOD COUNT 9.34 K/uL (4.8-10.8)
[2017-03-21 08:18] LABS: BUN/CREATININE RATIO 13.3 (10-20); CALCIUM 8.9 mg/dl (8.5-10.1); CREATININE 0.64 mg/dl (0.60-1.20); POTASSIUM 3.9 mmol/L (3.5-5.1)
[2017-03-21] MEDS: METOPROLOL TARTRATE 50 MG TAB PO SCH ×2 (08:50→20:56)
[2017-03-21] MEDS: ATORVASTATIN 10 MG TAB PO SCH (08:50)
[2017-03-21] MEDS: LISINOPRIL 40 MG TAB PO SCH (08:50)
[2017-03-21] MEDS: ASPIRIN 81 MG ECTAB PO SCH (08:50)
[2017-03-21] MEDS ORDERED: HYDROCHLOROTHIAZIDE 25 MG TAB PO ONE (12:30)
--- NOTE | 2017-03-21 12:33 | PROGRESS NOTE ---
DATE: 03/21/2017 FOLLOWUP VISIT SUBJECTIVE: The patient is a 46-year-old female who presented with a non-STEMI and malignant hypertension. She had markedly elevated hypertension in the Emergency Department which was treated appropriately and then underwent a cardiac catheterization which essentially showed normal coronaries except for a very distal tiny branch and PDA which was most likely the index artery. Since admission, she has been chest pain free. We have been titrating her antihypertensives. Unfortunately, she continues to be hypertensive and Dr. Dent has increased her TIFFANY inhibitor this morning. Despite the increase, she is still hypertensive. OBJECTIVE: GENERAL: She is alert and oriented, in no acute distress. VITAL SIGNS: Blood pressure is 170/100, pulse is regular at 73. She is afebrile. HEENT: She is normocephalic. Pupils are equal and reactive to light. Extraocular muscles are intact bilaterally. NECK: The neck veins are flat. Carotids have good upstrokes bilaterally without bruits. Thyroid is nonpalpable. RESPIRATORY: Breath sounds equal bilaterally and clear to auscultation. CARDIOVASCULAR: Heart has a regular rhythm. Normal S1, S2. No S3, S4. No cardiac rubs or murmurs. GASTROINTESTINAL: Abdomen is soft, nontender without organomegaly. EXTREMITIES: Free of edema, digital clubbing, or cyanosis. NEUROLOGIC: Grossly intact. SKIN: Warm to touch. LYMPH NODES: Negative to palpation. LABORATORY DATA: Potassium is 3.9, creatinine 0.64. IMPRESSION: 1. Non-ST elevation myocardial infarction. 2. Malignant hypertension. RECOMMENDATIONS: As outlined above, the patient received 40 mg of lisinopril this morning and remains hypertensive. I will add hydrochlorothiazide to her current medical regimen. I think that we should have her blood pressure better controlled before we consider discharge to outpatient followup. I would keep her on telemetry for now and continue to work to bring her hypertension under control.
--- NOTE | 2017-03-21 14:34 | Progress Note ---
Subjective Date of Service: Mar 21, 2017. Subjective Pt evaluation today including: conversation w/ patient, physical exam, lab review, review of studies, review of inpatient medication list Saw/examined the patient in room 230 Doing well, no chest pain/shortness of breath/palpitations No fevers/chills Review of Systems Constitutional: No fever, No chills Respiratory: No shortness of breath Cardiac: No chest pain, No palpitations Abdomen: No pain, No nausea, No vomiting, No diarrhea Medications Current Inpatient Medications Medications (Trade) Dose Ordered Sig/Jolanta Route Start Time Stop Time Status Last Admin Dose Admin Ondansetron HCl (Zofran Inj) 4 mg Q6H PRN IV 03/19/17 10:15 04/18/17 10:14 Nitroglycerin (Nitrostat Tab) 0.4 mg UD PRN SL 03/19/17 10:15 04/18/17 10:14 Acetaminophen (Tylenol Tab) 650 mg Q4H PRN PO 03/19/17 12:00 04/18/17 11:59 03/20/17 16:48 650 MG Sodium Chloride 250 ml @ 999 mls/hr Q16M PRN IV 03/19/17 11:46 04/18/17 11:45 Atropine Sulfate (Atropine Sulfate 0.1MG/Ml Inj) 0.6 mg PRN PRN IV 03/19/17 12:00 04/18/17 11:59 Aspirin (Ecotrin Tab) 81 mg QAM PO 03/20/17 09:00 04/19/17 08:59 03/21/17 08:50 81 MG Metoprolol Tartrate (Lopressor Tab) 50 mg Q12 PO 03/19/17 21:00 04/18/17 20:59 03/21/17 08:50 50 MG Atorvastatin Calcium (Lipitor Tab) 10 mg QAM PO 03/20/17 09:30 04/19/17 09:29 03/21/17 08:50 10 MG Lisinopril (Zestril Tab) 40 mg QAM PO 03/21/17 09:00 04/19/17 09:29 03/21/17 08:50 40 MG Hydrochlorothiazide (Hydrochlorothiazide Tab) 12.5 mg QAM PO 03/22/17 09:00 04/21/17 08:59 Objective Vital Signs Date Time Temp Pulse Resp B/P (MAP) Pulse Ox O2 Delivery O2 Flow Rate FiO2 03/21/17 11:43 37.0 67 20 96 Room Air 03/21/17 08:09 36.9 73 18 173/100 (124) 96 Room Air 03/21/17 04:00 Room Air 03/21/17 03:58 36.9 79 16 164/91 (115) 98 Room Air 03/21/17 00:06 36.9 70 16 167/89 (115) 99 Room Air 03/20/17 23:59 Room Air 03/20/17 20:00 Room Air 03/20/17 18:58 36.9 77 20 158/95 (116) 98 Room Air 03/20/17 16:00 Room Air 03/20/17 15:25 37.5 72 18 155/89 (111) 98 Room Air Physical Exam General Appearance: no apparent distress Respiratory/Chest: chest non-tender, lungs clear, normal breath sounds, no respiratory distress, no accessory muscle use Cardiovascular: regular rate, rhythm, no edema, no murmur Abdomen: normal bowel sounds, non tender, soft Extremities: normal inspection, no pedal edema Neurologic/Psychiatric: no motor/sensory deficits, alert, normal mood/affect Laboratory Results Last 24 Hours Test 03/21/17 07:17 White Blood Count 9.34 K/uL Red Blood Count 4.48 M/uL Hemoglobin 13.3 g/dL Hematocrit 40.9 % Mean Corpuscular Volume 91.3 fL Mean Corpuscular Hemoglobin 29.7 pg Mean Corpuscular Hemoglobin Concent 32.5 g/dl RDW Standard Deviation 43.9 fL RDW Coefficient of Variation 13.1 % Platelet Count 229 K/uL Mean Platelet Volume 11.4 fL Sodium Level 139 mmol/L Potassium Level 3.9 mmol/L Chloride Level 110 mmol/L Carbon Dioxide Level 24 mmol/L Anion Gap 5.0 mmol/L Blood Urea Nitrogen 9 mg/dl Creatinine 0.64 mg/dl Est Creatinine Clear Calc Drug Dose 110.8 ml/min Estimated GFR () 123.2 Estimated GFR (Non- 106.3 BUN/Creatinine Ratio 13.3 Random Glucose 87 mg/dl Calcium Level 8.9 mg/dl Assessment and Plan This is a 46 year old female with no PMH presented with an NSTEMI NSTEMI patient presented with chest pain, troponin >11 on admission cardiac catheterization done - showed mostly normal coronaries except very distal RCA no stenting could be performed, medical management was recommended was started on Lipitor, which is decreased to 10mg, aspirin 81mg, metoprolol and lisinopril currently chest pain free cardiac enzymes trending down Malignant Hypertension 03/21 dose of Lisinopril increased to 40mg BP remains elevated added HCTZ as per cardiology, continue Lopressor will need tighter BP control prior to discharge 03/20 patient presented with BP > 200/100 given Lopressor and Lisinopril with good response Lisinopril dose increased to 20mg monitor BP and adjust accordingly DVT ppx ambulation FULL CODE
[2017-03-22 03:44] VITALS: BP 142/84; PULSE 75; TEMP 36.9; O2SAT 99
[2017-03-22 08:08] VITALS: BP 156/91; PULSE 81; TEMP 37.1; O2SAT 97
[2017-03-22] MEDS: LISINOPRIL 40 MG TAB PO SCH (08:43)
[2017-03-22] MEDS: METOPROLOL TARTRATE 50 MG TAB PO SCH (08:43)
[2017-03-22] MEDS: ASPIRIN 81 MG ECTAB PO SCH (08:44)
[2017-03-22] MEDS: ATORVASTATIN 10 MG TAB PO SCH (08:44)
[2017-03-22] MEDS ORDERED: HYDROCHLOROTHIAZIDE 25 MG TAB PO SCH (09:00)
[2017-03-22] MEDS ORDERED: CHLORTHALIDONE 25 MG TAB PO SCH (09:00)
--- NOTE | 2017-03-22 09:34 | Progress Note ---
Subjective Date of Service: Mar 22, 2017. Subjective Pt evaluation today including: conversation w/ patient, physical exam, lab review, review of studies, review of inpatient medication list Saw/examined the patient in room 230 Doing well, denies chest pain/shortness of breath Feeling fine, eager to go home Review of Systems Constitutional: No fever, No chills Respiratory: No shortness of breath Cardiac: No chest pain Abdomen: No pain, No nausea, No vomiting, No diarrhea Medications Current Inpatient Medications Medications (Trade) Dose Ordered Sig/Jolanta Route Start Time Stop Time Status Last Admin Dose Admin Ondansetron HCl (Zofran Inj) 4 mg Q6H PRN IV 03/19/17 10:15 04/18/17 10:14 Nitroglycerin (Nitrostat Tab) 0.4 mg UD PRN SL 03/19/17 10:15 04/18/17 10:14 Acetaminophen (Tylenol Tab) 650 mg Q4H PRN PO 03/19/17 12:00 04/18/17 11:59 03/20/17 16:48 650 MG Sodium Chloride 250 ml @ 999 mls/hr Q16M PRN IV 03/19/17 11:46 04/18/17 11:45 Atropine Sulfate (Atropine Sulfate 0.1MG/Ml Inj) 0.6 mg PRN PRN IV 03/19/17 12:00 04/18/17 11:59 Aspirin (Ecotrin Tab) 81 mg QAM PO 03/20/17 09:00 04/19/17 08:59 03/22/17 08:44 81 MG Metoprolol Tartrate (Lopressor Tab) 50 mg Q12 PO 03/19/17 21:00 04/18/17 20:59 03/22/17 08:43 50 MG Atorvastatin Calcium (Lipitor Tab) 10 mg QAM PO 03/20/17 09:30 04/19/17 09:29 03/22/17 08:44 10 MG Lisinopril (Zestril Tab) 40 mg QAM PO 03/21/17 09:00 04/19/17 09:29 03/22/17 08:43 40 MG Hydrochlorothiazide (Hydrochlorothiazide Tab) 12.5 mg QAM PO 03/23/17 09:00 04/22/17 08:59 UNV Objective Vital Signs Date Time Temp Pulse Resp B/P (MAP) Pulse Ox O2 Delivery O2 Flow Rate FiO2 03/22/17 08:08 37.1 81 20 156/91 (112) 97 Room Air 03/22/17 04:00 Room Air 03/22/17 03:44 36.9 75 18 142/84 (103) 99 Room Air 03/22/17 00:23 Room Air 03/21/17 23:11 36.9 63 17 124/73 (90) 97 Room Air 03/21/17 20:00 Room Air 03/21/17 19:49 37.1 76 20 166/88 (114) 99 Room Air 03/21/17 16:00 Room Air 03/21/17 15:20 36.9 68 16 164/99 (120) 96 Room Air 03/21/17 12:00 Room Air 03/21/17 11:43 37.0 67 20 162/92 (115) 96 Room Air Physical Exam General Appearance: no apparent distress Respiratory/Chest: lungs clear, normal breath sounds, no respiratory distress, no accessory muscle use Cardiovascular: regular rate, rhythm, no edema, no murmur Assessment and Plan This is a 46 year old female with no PMH presented with an NSTEMI NSTEMI patient presented with chest pain, troponin >11 on admission cardiac catheterization done - showed mostly normal coronaries except very distal RCA no stenting could be performed, medical management was recommended was started on Lipitor, which is decreased to 10mg, aspirin 81mg, metoprolol and lisinopril currently chest pain free cardiac enzymes trending down Malignant Hypertension 03/22 will d/c home with Lisinopril 40mg, HCTZ 12.5mg, and Lopressor continue low dose Lipitor and aspirin 03/21 dose of Lisinopril increased to 40mg BP remains elevated added HCTZ as per cardiology, continue Lopressor will need tighter BP control prior to discharge 03/20 patient presented with BP > 200/100 given Lopressor and Lisinopril with good response Lisinopril dose increased to 20mg monitor BP and adjust accordingly DVT ppx ambulation FULL CODE
[2017-03-22] MEDS ORDERED: LSN40 PO (09:35)
[2017-03-22] MEDS ORDERED: METO50TA16 PO (09:35)
[2017-03-22] MEDS ORDERED: LPT10 PO (09:35)
[2017-03-22] MEDS ORDERED: HYDR25TA5 PO (09:35)
[2017-03-22] MEDS ORDERED: ASPEC81 PO (09:35)
--- NOTE | 2017-03-22 09:37 | PROGRESS NOTE ---
DATE: 03/22/2017 FOLLOWUP VISIT SUBJECTIVE: The patient is a 46-year-old female who presented with a non-STEMI with malignant hypertension. She underwent a cardiac catheterization that showed normal coronary arteries except for very distal tiny branch of the PDA, which was most likely the index artery and not amenable to coronary intervention. Over the past several days, we have been titrating her antihypertensive medications. Although she remains slightly hypertensive, she has been started on several new medications and at this point, I would be willing to let her be discharged with early followup next week through our office and we will make a decision as to whether or not she will go on additional medications at that time. Basically, I think we should give these medications for a few more days to work. She has had no chest pain. She denies shortness of breath. She is anxious to return home. OBJECTIVE: GENERAL: She is alert and oriented, in no acute distress. VITAL SIGNS: Blood pressure is 160/85 and pulse is regular at 73. She is afebrile. HEENT: She is normocephalic. Pupils are equal and reactive to light. Extraocular muscles are intact bilaterally. NECK: The neck veins are flat. Carotids have good upstrokes bilaterally without bruits. Thyroid is nonpalpable. RESPIRATORY: Breath sounds are equal bilaterally and clear to auscultation. CARDIOVASCULAR: Heart has a regular rhythm. Normal S1 and S2. No S3 or S4. No cardiac rubs or murmurs. GASTROINTESTINAL: Abdomen is soft and nontender without organomegaly. EXTREMITIES: Free of edema, digit clubbing, or cyanosis. NEUROLOGIC: Grossly intact. SKIN: Warm to touch. LYMPH NODES: Negative to palpation. IMPRESSION: 1. Non-ST elevation myocardial infarction. 2. Malignant hypertension. RECOMMENDATIONS: As outlined above, I think we should give her current antihypertensive medications for a few more days to work. She has been placed on 3 medications, all which are ____. I will arrange early followup next week.
--- NOTE | 2017-03-22 09:43 | Discharge Instructions ---
Discharge Instructions Date of Service Mar 22, 2017. Admission Reason for Admission: Nstemi Discharge Discharge Diagnosis / Problem: NSTEMI Discharge Goals Goal(s): Decrease discomfort, Improve function, Diagnostic testing, Therapeutic intervention Activity Recommendations Activity Limitations: resume your previous activity . Instructions / Follow-Up Instructions / Follow-Up Please follow-up with Dr. Lazaro on March 26 at 10:05AM * You will be discharged with Lisinopril 40mg, Hydrochlorothiazide 12.5mg, and Lopressor 50mg twice daily * Take aspirin 81mg daily * Take Lipitor 10mg every night * You will get a phone call with Dr. Snowden, cardiology, for repeat blood pressure Home Care: * Take your medications exactly as directed. Don't skip doses. * Remember that recovery after a heart attack takes time. Plan to rest for at lease 4-8 weeks while you recover. Then return to normal activity when your doctor says it's okay. * Ask your doctor about joining a heart rehabilitation program. * Tell your doctor if you are feeling depressed. Feelings of sadness are common after a heart attack, but it is important that you speak to someone if you are feeling overwhelmed by these feelings. * If you are having chest pain, call 911 for an ambulance. Do NOT drive yourself to the hospital. * Ask your family members to learn CPR. * Learn to take your own blood pressure and pulse. Keep a record of your results. Ask your doctor when you should seek emergency medical attention. He or she will tell you which blood pressure reading is dangerous. Lifestyle Changes: * Maintain a healthy weight. Get help to lose any extra pounds. * Cut back on salt. * Limit canned, dried, packaged, and fast foods. * Don't add salt to your food. * Season foods with herbs instead of salt when you cook. * Break the smoking habit. Enroll in a stop-smoking program to improve your chances of success. * Limit fatty foods. * Ask your doctor about having your lipid levels checked regularly. * Build up your activity according to your doctor's recommendation. * Ask your doctor when it's okay to resume sexual activity. * Try to manage stress. Follow Up: It is important for you to keep your follow up appointments with your medical provider. Current Hospital Diet Patient's current hospital diet: AHA Diet (Heart Healthy) Discharge Diet Recommended Diet: AHA Diet (Heart Healthy) Pending Studies Studies pending at discharge: no Laboratory Results Hemoglobin A1c Test 03/19/17 09:05 Range/Units Estimated Average Glucose 103 mg/dl Hemoglobin A1c 5.2 4.5-5.6 % Lipid Panel Test 03/20/17 06:25 Range/Units Triglycerides Level 140 0-150 mg/dl Cholesterol Level 173 0-200 mg/dl HDL Cholesterol 41 mg/dl Cholesterol/HDL Ratio 4.2 LDL Cholesterol, Calculated 104 mg/dl Medical Emergencies . Who to Call and When: Medical Emergencies: If at any time you feel your situation is an emergency, please call 911 immediately. Call 911 immediately or go to your nearest Emergency Room if you experience any of the following: Warning Signs and Symptoms of a Heart Attack * Chest pain that is not relieved by medication * Shortness of breath . Non-Emergent Contact Non-Emergency issues call your: Primary Care Provider, District Manager Postal Service . . "Provider Documentation" section prepared by Kulwinder Dent. . AMI Core Measures Reason no ASA as I/P: Treatment provided - N/A Reason no ASA at D/C: Treatment provided - N/A Reason no statin as I/P: Treatment provided - N/A Reason no statin at D/C: Treatment provided - N/A VTE Core Measure Inpt VTE Proph given/why not?: Other Anticoagulation (initially IV heparin, and then not indicated), Treatment not indicated
--- NOTE | 2017-03-22 09:45 | Discharge Summary ---
Discharge Summary Date of Service Mar 22, 2017. Discharge Summary Admission Date: Mar 19, 2017 at 10:12 Discharge Date: Mar 22, 2017 Discharge Disposition: Home Principal Diagnosis: NSTEMI Malignant Hypertension Medication Reconciliation New Medications: Aspirin (Aspirin EC Low Dose) 81 Mg Ectab 81 MG PO QAM for 30 Days, #30 TABS Atorvastatin (Atorvastatin Calcium) 10 Mg Tab 10 MG PO QAM for 30 Days, #30 TAB Hydrochlorothiazide (Hydrochlorothiazide) 25 Mg Tab 12.5 MG PO QAM for 30 Days, #15 TAB Lisinopril (Lisinopril) 40 Mg Tab 40 MG PO QAM for 30 Days, #30 TAB Metoprolol Tartrate (Lopressor) (Lopressor) 50 Mg Tab 50 MG PO Q12 for 30 Days, #60 TAB Admission Information HPI (per Admitting provider): This is a 46yo female with no PMH who presents after experiencing chest pain and SOB last evening. Patient was in her normal state of health until 6pm, when she woke up from a nap with severe pressure on her central chest with radiation down both arms. Describes pain in arms as aching and too heavy to lift. Pain did not subside with rest. When patient got up and started to walk towards kitchen, she noticed that she was short of breath and nauseous. Had 2 episodes of vomiting over the next few hours while doing chores around the house. Went to bed early to rest in a reclined position. Pain spontaneously resolved around 11pm and patient was able to sleep. Went to work this morning and was encouraged to call her doctor about the prior event. Was then encouraged to come to the ER for further evaluation. Patient denies any previous heart disease, chest pain or HTN. Does not take any medications. Denies any current headache, CP, SOB, sweating, nausea/vomiting. POC troponin is 9 and an EKG suggests a possible recent inferior lateral wall infarct. 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 Will resume once patient is on the floor. Physical Exam (per Admitting): General Appearance: WD/WN, no apparent distress Head: normocephalic Eyes: normal inspection, PERRL ENT: hearing grossly normal Neck: supple, no adenopathy, trachea midline Respiratory/Chest: chest non-tender, lungs clear, normal breath sounds, no respiratory distress, no accessory muscle use Cardiovascular: regular rate, rhythm, no murmur, normal peripheral pulses Abdomen/GI: normal bowel sounds, non tender, soft, no organomegaly Extremities/Musculoskelatal: normal inspection, no calf tenderness, normal capillary refill, no pedal edema Neurologic/Psych: alert, normal mood/affect, oriented x 3 Skin: normal color, warm/dry Hospital Course This is a 46 year old female with no PMH presented with an NSTEMI NSTEMI patient presented with chest pain, troponin >11 on admission cardiac catheterization done - showed mostly normal coronaries except very distal RCA no stenting could be performed, medical management was recommended was started on Lipitor, which is decreased to 10mg, aspirin 81mg, metoprolol and lisinopril currently chest pain free cardiac enzymes trending down Malignant Hypertension 03/22 will d/c home with Lisinopril 40mg, HCTZ 12.5mg, and Lopressor continue low dose Lipitor and aspirin 03/21 dose of Lisinopril increased to 40mg BP remains elevated added HCTZ as per cardiology, continue Lopressor will need tighter BP control prior to discharge 03/20 patient presented with BP > 200/100 given Lopressor and Lisinopril with good response Lisinopril dose increased to 20mg monitor BP and adjust accordingly DVT ppx ambulation FULL CODE Total time spent on discharge = 40 minutes This includes examination of the patient, discharge planning, medication reconciliation, and communication with other providers. Discharge Instructions Please follow-up with Dr. Lazaro on March 26 at 10:05AM * You will be discharged with Lisinopril 40mg, Hydrochlorothiazide 12.5mg, and Lopressor 50mg twice daily * Take aspirin 81mg daily * Take Lipitor 10mg every night * You will get a phone call with Dr. Snowden, cardiology, for repeat blood pressure
[2017-03-22 10:07] VITALS: BP 156/91; PULSE 81; TEMP 37.1; O2SAT 97
[2017-03-23] MEDS ORDERED: HYDROCHLOROTHIAZIDE 25 MG TAB PO SCH (09:00)
== END 2017-03-22 14:12 | disposition home or self-care (01) | DRG 281 ==
LOC: C.EDB 08:52 → C.2T 10:12 → ENRESERV 13:17
PROVIDERS: ADMIT Family Medicine; ATTEND Family Medicine
PROC: B211YZZ Fluoroscopy of Multiple Coronary Arteries using Other Contrast (ICD-10-PCS; principal; 2017-03-19 10:38)
PROC: 4A023N7 Measurement of Cardiac Sampling and Pressure, Left Heart, Percutaneous Approach (ICD-10-PCS; principal; 2017-03-19 10:38)
DX: I21.4 Non-ST elevation (NSTEMI) myocardial infarction (principal); I47.2 Ventricular tachycardia; I25.10 Atherosclerotic heart disease of native coronary artery without angina pectoris; I10 Essential (primary) hypertension

== ENCOUNTER 2017-10-10 10:41 | Inpatient (IN) | payer OTHER ==
[~2017-10-10] VITALS: Ht 162.6 cm; Wt 74.9 kg
[~2017-10-10 10:41] MED LIST: ASPI81TA28 PO; CLOP1TAB15 PO; DXM/4 PO; HYDR25TA4 PO; LISI40TA PO; LPT10 PO; METO25TA56 PO; ONDA-170 PO; PROC1TAB5 PO
[2017-10-10] MEDS ORDERED: SODIUM CHLORIDE 0.9% 1000ML 2,000 ML IV STA (11:07)
[2017-10-10 11:52] LABS: HEMATOCRIT 39.5 % (37-47); HEMOGLOBIN 14.1 g/dL (12.0-16.0); MEAN CELL VOLUME 86.4 fL (80-100); MEAN CORPUSCULAR HEMOGLOBIN 30.9 pg (25-34); MEAN CORPUSCULAR HGB CONC 35.7 g/dl (32-36); MEAN PLATELET VOLUME 11.3 fL (7.4-10.4); PLATELET COUNT 279 K/uL (130-400); RED CELL DISTRIBUTION WIDTH CV 12.6 % (11.5-14.5); RED CELL DISTRIBUTION WIDTH SD 39.9 fL (36.4-46.3); WHITE BLOOD COUNT 18.97 K/uL (4.8-10.8)
--- NOTE | 2017-10-10 11:58 | DIAGNOSTIC IMAGING REPORT ---
CHEST ONE VIEW PORTABLE CLINICAL HISTORY: Dehydration. Evaluate for pneumonia. COMPARISON STUDY: Chest radiograph March 19, 2017. FINDINGS: Lung volumes are normal. No pneumothorax or pleural effusion is noted. There is no consolidation. Pulmonary vascularity is normal. Cardiac size is normal. Mediastinal contours are normal. IMPRESSION: No acute cardiopulmonary findings. Electronically signed by: Denis Antoine M.D. 10/10/2017 11:57 AM Dictated Date/Time: 10/10/2017 11:50 AM
[2017-10-10 12:24] LABS: ALBUMIN 3.7 gm/dl (3.4-5.0); ALKALINE PHOSPHATASE 84 U/L (45-117); ALT/SGPT 106 U/L (12-78); AST/SGOT 39 U/L (15-37); BLOOD UREA NITROGEN 46 mg/dl (7-18); CALCIUM 9.2 mg/dl (8.5-10.1); CARBON DIOXIDE 23 mmol/L (21-32); CREATININE 4.63 mg/dl (0.60-1.20); GLUCOSE 114 mg/dl (70-99); LIPASE 206 U/L (73-393); POTASSIUM 2.8 mmol/L (3.5-5.1); SODIUM 130 mmol/L (136-145); TOTAL PROTEIN 7.7 gm/dl (6.4-8.2)
[2017-10-10] MEDS ORDERED: POTASSIUM CHLORIDE 10 MEQ TABCR PO STA (12:35)
[2017-10-10] MEDS ORDERED: POTASSIUM CHLORIDE 10 MEQ / 100ML WTR IV STA (12:35)
[2017-10-10 12:42] LABS: INFLUENZA B ANTIGEN Neg for Influ B (NEG)
[2017-10-10] MEDS ORDERED: ENOXAPARIN 40 MG/0.4 ML SYR SC SCH (14:00)
[2017-10-10] MEDS ORDERED: ACETAMINOPHEN 325 MG TAB PO PRN (14:00)
[2017-10-10] MEDS ORDERED: NITROGLYCERIN 0.4 MG SL PER TAB CHARGE SL PRN (14:00)
[2017-10-10] MEDS ORDERED: ONDANSETRON INJ 2 MG/ML 2 ML VIAL IV PRN (14:00)
[2017-10-10 15:10] VITALS: BP 128/67; PULSE 105; TEMP 36.9; O2SAT 97
[2017-10-10 16:14] LABS: INR 0.9 (0.9-1.1)
[2017-10-10 16:18] VITALS: BP 128/67; PULSE 105; TEMP 36.9; BMI 27.2
--- NOTE | 2017-10-10 16:45 | History and Physical ---
History & Physical Date of Service Oct 10, 2017. History & Physical This is a 46 year old female with a PMH of NSTEMI, HTN, HLD, recent hx. of breast CA with ongoing chemotherapy - presents with lack of appetite, weakness, lethargy. She presented to the ED because of abnormal outpatient labs and found to have significant dehydration. Patient states she tries to eat, but has difficulty due to nausea and not having appetite. Denies vomiting, but does have occasional diarrhea. Denies fevers/chills. 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 Replete potassium and monitor for further diarrhea. Continue cardiac medications (holding Plavix due to plan for a insertion of a chemo port) Outpatient oncology follow-up - may need Marinol or Megace to improve appetite
--- NOTE | 2017-10-10 17:14 | EMERGENCY ROOM VISIT NOTE ---
History Report prepared by Kar: Hi Salas Under the Supervision of: Dr. Lance Allison M.D. First contact with patient: 11:05 Chief Complaint: DEHYDRATION Stated Complaint: DEHYDRATION AND FATIGUE Nursing Triage Summary: Recently dx with right sided breast CA, started chemotherapy last week. Past few days has had no appetite, low intake, low output, feels dehydrated. Went to PCP , did lab work. Creat on 0.9, today creat 4.4, referred here. History of Present Illness The patient is a 46 year old female who presents to the Emergency Room with complaints of worsening dehydration beginning this week. She is currently being treated for right-sided breast cancer by Dr. Friend. Her most recent chemotherapy treatment was last week. The patient states "food just doesn't taste good", but she states that she feels hungry. She also complains of diarrhea, fatigue, and generalized weakness. She was seen by her PCP today and had blood work which showed a creatinine of 4.4 (up from 0.9 a week ago). The patient denies chest pain or SOB. Her cancer treatment regimen is on Perjeta, Herceptin, Carboplatin , Taxotere IV (every three weeks for six cycles), then Herceptin IV every three weeks for a year. The patient is also on Zofran and Compazine PRN, Neulasta 24 hours after chemo, Emend IV on days of chemotherapy, and Decadron 2 tabs by mouth twice a day for three days starting the day before chemo. Source of History: patient Associated Symptoms: No chest pain, No SOB Review of Systems See HPI for pertinent positives and negatives. A total of ten systems were reviewed and were otherwise negative. Past Medical & Surgical Medical Problems: (1) DARI (acute kidney injury) (2) Breast CA (3) Dehydration (4) Migraines (5) NSTEMI (non-ST elevated myocardial infarction) Surgical Problems: (1) Hx of cardiac catheterization (2) No history of previous surgery Family History No pertinent family history stated. Social History Smoking Status: Never Smoker Alcohol Use: occasionally Marital Status: Housing Status: lives with family Occupation Status: employed Current/Historical Medications Scheduled Aspirin (Aspirin Ec), 81 MG PO QAM Atorvastatin (Lipitor), 10 MG PO QAM Clopidogrel (Plavix), 75 MG PO DAILY Hydrochlorothiazide (Hctz), 1 TAB PO DAILY Lisinopril (Zestril), 40 MG PO QAM Metoprolol Tartrate (Lopressor) (Lopressor), 25 MG PO BID Scheduled PRN Dexamethasone (Decadron), 4 MG PO UD PRN for BEFORE CHEMO Ondansetron Hcl (Zofran), 8 MG PO UD PRN for Nausea Prochlorperazine Maleate (Compazine), 10 MG PO Q6H PRN for Nausea Allergies Coded Allergies: Sulfa Antibiotics (Unverified Adverse Reaction, Intermediate, swelling, 10/07/17) Physical Exam Vital Signs Date Time Temp Pulse Resp B/P (MAP) Pulse Ox O2 Delivery O2 Flow Rate FiO2 10/10/17 13:20 93 18 154/105 99 Room Air 10/10/17 11:58 86 18 121/66 99 Room Air 10/10/17 11:46 80 10/10/17 10:55 37.0 99 18 70/50 100 Room Air Physical Exam Physical Exam GENERAL: She is oriented to person, place, and time. She appears well- developed and well-nourished. She does not appear distressed. Appears fatigued. ____ HENT: Exam performed. Head: Normocephalic and atraumatic. Right Ear: External ear normal. No mastoid tenderness. Left Ear: External ear normal. No mastoid tenderness. Mouth/Throat: The oropharynx is clear, but dry. No trismus in the jaw. No dental abscesses or uvula swelling. No oropharyngeal exudate or tonsillar abscesses. ____ EYES: Conjunctivae and EOM are normal. Pupils are equal, round, and reactive to light. Right eye exhibits no discharge. Left eye exhibits no discharge. No scleral icterus. ____ NECK: Normal range of motion. Neck supple. No JVD present. No spinous process tenderness present. No carotid bruit present. No rigidity. No tracheal deviation and normal range of motion present. No Brudzinski's sign and no Kernig 's sign noted. ____ CV: Normal rate, regular rhythm, normal heart sounds and intact distal pulses. There is no peripheral edema. Palpable radial pulses bue. ____ PULM/CHEST: Effort normal and breath sounds normal. No respiratory distress. No stridor. She has no wheezes. She has no rales. Chest Wall: She exhibits no tenderness. ____ ABD: The abdomen is soft. Bowel sounds are normal. She has no distension. No mass is present. There is no tenderness. There is no rebound, no guarding, no Ellsworth's sign and no tenderness at McBurney's point. Rovsig negative MUSC/SKEL: Normal range of motion. There is no peripheral edema, tenderness or deformity. LYMPH: No cervical adenopathy. ____ NEURO: She is alert and oriented to person, place, and time. She has normal strength. No cranial nerve deficit or sensory deficit. Coordination and gait normal. GCS eye subscore is 4. GCS verbal subscore is 5. GCS motor subscore is 6. Cerebellar tests wnl. ____ SKIN: Skin is warm and dry. She is not diaphoretic. ____ PSYCH: She has a normal mood and affect. Her behavior is normal. Judgment and thought content normal. ____ Medical Decision & Procedures ER Provider Diagnostic Interpretation: Radiology results as stated below per my review and radiologist interpretation: CHEST ONE VIEW PORTABLE FINDINGS: Lung volumes are normal. No pneumothorax or pleural effusion is noted. There is no consolidation. Pulmonary vascularity is normal. Cardiac size is normal. Mediastinal contours are normal. IMPRESSION: No acute cardiopulmonary findings. Electronically signed by: Denis Antoine M.D. 10/10/2017 11:57 AM Laboratory Results 10/10/17 11:31 Red Blood Count 4.57, Mean Corpuscular Volume 86.4, Mean Corpuscular Hemoglobin 30.9, Mean Corpuscular Hemoglobin Concent 35.7, Mean Platelet Volume 11.3 10/10/17 11:31 Test 10/10/17 11:31 10/10/17 11:37 10/10/17 11:45 White Blood Count 18.97 K/uL (4.8-10.8) Red Blood Count 4.57 M/uL (4.2-5.4) Hemoglobin 14.1 g/dL (12.0-16.0) Hematocrit 39.5 % (37-47) Mean Corpuscular Volume 86.4 fL (80-100) Mean Corpuscular Hemoglobin 30.9 pg (25-34) Mean Corpuscular Hemoglobin Concent 35.7 g/dl (32-36) Platelet Count 279 K/uL (130-400) Mean Platelet Volume 11.3 fL (7.4-10.4) RDW Standard Deviation 39.9 fL (36.4-46.3) RDW Coefficient of Variation 12.6 % (11.5-14.5) Neutrophils % (Manual) 63.2 % Lymphocytes % (Manual) 24.8 % Monocytes % (Manual) 7.7 % Metamyelocytes % 0.9 % Myelocytes % 3.4 % Neutrophils # (Manual) 11.99 K/uL (1.4-6.5) Total Absolute Neutrophils 11.99 K/uL (1.4-6.5) Lymphocytes # (Manual) 4.70 K/uL (1.2-3.4) Total Absolute Lymphocytes 4.70 K/uL (1.2-3.4) Monocytes # (Manual) 1.46 K/uL (0.11-0.59) Metamyelocytes # 0.17 K/uL (0-0) Myelocytes # 0.64 K/uL (0-0) Toxic Granulation 1+ Dohle Bodies 1+ Prothrombin Time 9.8 SECONDS (9.0-12.0) Prothromb Time International Ratio 0.9 (0.9-1.1) Anion Gap 11.0 mmol/L (3-11) Est Creatinine Clear Calc Drug Dose 14.6 ml/min Estimated GFR () 12.2 Estimated GFR (Non- 10.5 BUN/Creatinine Ratio 9.9 (10-20) Calcium Level 9.2 mg/dl (8.5-10.1) Total Bilirubin 0.4 mg/dl (0.2-1) Direct Bilirubin 0.1 mg/dl (0-0.2) Aspartate Amino Transf (AST/SGOT) 39 U/L (15-37) Alanine Aminotransferase (ALT/SGPT) 106 U/L (12-78) Alkaline Phosphatase 84 U/L (45-117) Troponin I < 0.015 ng/ml (0-0.045) Total Protein 7.7 gm/dl (6.4-8.2) Albumin 3.7 gm/dl (3.4-5.0) Lipase 206 U/L (73-393) Lactic Acid Level 1.4 mmol/L (0.4-2.0) Influenza Type A Antigen Neg for Influ A (NEG) Influenza Type B Antigen Neg for Influ B (NEG) Laboratory results reviewed by me Medications Administered Medications (Trade) Dose Ordered Sig/Jolanta Route Start Time Stop Time Status Last Admin Dose Admin Sodium Chloride 2,000 ml @ 999 mls/hr Q2H1M STAT IV 10/10/17 11:07 10/10/17 13:07 DC 10/10/17 11:07 999 MLS/HR Potassium Chloride (Klor-Con M10) 40 meq NOW STAT PO 10/10/17 12:35 10/10/17 12:36 DC 10/10/17 12:49 40 MEQ Potassium Chloride (Kcl 10 Meq / Wtr) 20 meq NOW STAT IV 10/10/17 12:35 10/10/17 12:36 DC 10/10/17 12:49 20 MEQ ECG Per My Interpretation Indication: weakness Rate (beats per minute): 84 Rhythm: sinus rhythm Findings: left axis deviation, other (ME, QRS, QTC intervals within normal limits. No ST elevation or depression. ) ED Course 1106: The patient was evaluated in room C8 immediately upon arrival. The patient was placed on the night monitor and IV access was obtained immediately. 2 L IV bolus and medially ordered. A complete history and physical exam was performed. 1150: I conducted a bedside PALMER exam which showed completely collapsed IVC but was otherwise negative. No pericardial effusion, no pneumothorax, no free fluid in the abdomen, aorta diameter less than 3 cm. 1255: Patient's blood pressure improved status post 2 L IV fluid bolus. Labs show leukocytosis of 18.97, coags within normal limits, creatinine 4.63, potassium 2.8, sodium 130, lactic acid 1.4. Creatinine is significantly elevated from previous creatinines in the computer. Discussed the patient's case. Dr. Friend agrees that the leukocytosis is likely due to the patient's chemotherapy medication. She agrees with hospitalization. Upon reexamination, the patient was resting comfortably. I discussed the test results and treatment plan with her. The patient will be evaluated for further management. Medical Decision 1106: The patient was evaluated in room C8 immediately upon arrival. The patient was placed on the night monitor and IV access was obtained immediately. 2 L IV bolus and medially ordered. A complete history and physical exam was performed. 1150: I conducted a bedside PALMER exam which showed completely collapsed IVC but was otherwise negative. No pericardial effusion, no pneumothorax, no free fluid in the abdomen, aorta diameter less than 3 cm. 1255: Patient's blood pressure improved status post 2 L IV fluid bolus. Labs show leukocytosis of 18.97, coags within normal limits, creatinine 4.63, potassium 2.8, sodium 130, lactic acid 1.4. Creatinine is significantly elevated from previous creatinines in the computer. Discussed the patient's case. Dr. Friend agrees that the leukocytosis is likely due to the patient's chemotherapy medication. She agrees with hospitalization. Upon reexamination, the patient was resting comfortably. I discussed the test results and treatment plan with her. The patient will be evaluated for further management. Medication Reconcilliation Current Medication List: was personally reviewed by me Blood Pressure Screening Patient's blood pressure: Low blood pressure Blood pressure disposition: Did not require urgent referral Consults Time Called: 1252 Consulting Physician: Dr. Friend - Hematology/Oncology Returned Call: 1256 Discussed the patient's case. Dr. Friend agrees that the leukocytosis is likely due to the patient's chemotherapy medication. She agrees with hospitalization. Additional Consults: Time Called: 1255 Consulted Physician: Shey Hope [facility] [place] [facility] Returned Call: 1300 Additional Comments: Discussed the patient's case. The patient will be evaluated for further treatment and disposition. Impression Primary Impression: DARI (acute kidney injury) Additional Impressions: Hypokalemia Hypotension Hyponatremia Critical Care I have personally spent greater than 72 minutes of critical care time in the direct management of this patient. This includes bedside care, interpretation of diagnostic studies, and testing, discussion with consultants, patient, and family members, and other required patient management activities. This 72 minutes is in excess of all separately billable procedures. Scribe Attestation The scribe's documentation has been prepared under my direction and personally reviewed by me in its entirety. I confirm that the note above accurately reflects all work, treatment, procedures, and medical decision making performed by me. The chart was completed utilizing [employer] voice recognition software. Grammatical errors, random word insertions, pronoun errors, and incomplete sentences are an occasional consequence of this system due to software limitations, ambient noise, and hardware issues. Any formal questions or concerns about the content, text, or information contained within the body of this dictation should be directly addressed to the physician for clarification. Departure Information Dispostion Being Evaluated By Hospitalist Referrals America Lazaro M.D. (MEDICAL) (PCP) Patient Instructions My [facility] Problem Qualifiers Additional Impressions: Hypotension Hypotension type: unspecified hypotension type Qualified Codes: I95.9 - Hypotension, unspecified
[2017-10-10] MEDS: NSS + 20MEQ KCL 1000ML 1,000 ML IV SCH (17:15)
[2017-10-10 17:17] VITALS: Ht 162.6 cm; Wt 74.9 kg
[2017-10-10] MEDS: ENOXAPARIN 30 MG/0.3 ML SYR SC SCH (17:27)
--- NOTE | 2017-10-10 17:35 | History and Physical ---
History & Physical Date & Time of Service: Oct 10, 2017 at 14:11 Chief Complaint: Dehydration And Fatigue Primary Care Physician: America Lazaro M.D. (MEDICAL) History of Present Illness Source: patient, clinic records, hospital records Pt is 46 y/o F with PMH and STEMI, HTN, right breast CA presented to ER with complaint weakness. Patient with recent diagnosis right breast CA had first chemo treatment on 10/02/17 with Taxotere, carboplatin, Herceptin, Perjeta. Since with fatigue, decreased appetite and having loose BM's. Patient admits last several days has not been eating and drinking, drinking less than 20 ounces of water daily. Has noticed decreased urine output and dizziness with standing. Denies syncope, nausea, vomiting. No chemo treatments since. Patient is to have port placement on 10/13/17, and aspirin and Plavix are on hold at this time. Hx NSTEMI 03/2017 had cardiac catheterization done - showed mostly normal coronaries except very distal RCA, no stenting performed and pt on medical management. Denies any recurrent CP, SOB. Denies fever/chills, diaphoresis, FERNANDES, syncope, vision changes, neck pain, orthopnea, palpitations, cough, sore throat, choking, otalgia, rhinorrhea, abdominal pain, paresthesias, weakness, extremity weakness, extremity edema, rashes, dysuria, hematuria. Past Medical/Surgical History Medical Problems: (1) Breast CA Permanent Comment: following with Dr Phuc Dyson breast CA. first chemo tx on with taxotere, carboplatin, herceptin, perjeta Status: Chronic (2) Migraines Status: Chronic (3) NSTEMI (non-ST elevated myocardial infarction) Status: Chronic Surgical Problems: (1) Hx of cardiac catheterization Permanent Comment: 03/2017 - mostly normal coronaries except very distal RCA, no stenting could be performed, medical management was recommended Status: Resolved Family History Diabetes mellitus FH: breast cancer Hypertension Social History Smoking Status: Never Smoker Smokeless Tobacco Use: No Alcohol Use: none Marital Status: Occupational Status: employed Allergies Coded Allergies: Sulfa Antibiotics (Unverified Adverse Reaction, Intermediate, swelling, 10/07/17) Home Medications Scheduled Aspirin (Aspirin Ec), 81 MG PO QAM Atorvastatin (Lipitor), 10 MG PO QAM Clopidogrel (Plavix), 75 MG PO DAILY Hydrochlorothiazide (Hctz), 1 TAB PO DAILY Lisinopril (Zestril), 40 MG PO QAM Metoprolol Tartrate (Lopressor) (Lopressor), 25 MG PO BID Scheduled PRN Dexamethasone (Decadron), 4 MG PO UD PRN for BEFORE CHEMO Ondansetron Hcl (Zofran), 8 MG PO UD PRN for Nausea Prochlorperazine Maleate (Compazine), 10 MG PO Q6H PRN for Nausea Review of Systems See HPI for pertinent positives & negatives. All other systems reviewed and were otherwise negative Physical Exam Vital Signs Date Time Temp Pulse Resp B/P (MAP) Pulse Ox O2 Delivery O2 Flow Rate FiO2 10/10/17 13:20 93 18 154/105 99 Room Air 10/10/17 11:58 86 18 121/66 99 Room Air 10/10/17 11:46 80 10/10/17 10:55 37.0 99 18 70/50 100 Room Air General Appearance: WD/WN, no apparent distress Head: normocephalic, atraumatic Eyes: normal inspection, sclerae normal ENT: hearing grossly normal, pharynx normal, + pertinent finding (Mucous membranes dry) Neck: supple, no JVD, trachea midline Respiratory/Chest: lungs clear, normal breath sounds, no respiratory distress Cardiovascular: regular rate, rhythm, no murmur Abdomen/GI: normal bowel sounds, non tender, soft Back: no CVA tenderness Extremities/Musculoskelatal: normal inspection, no calf tenderness, normal capillary refill, no pedal edema, normal range of motion, non-tender Neurologic/Psych: alert, normal mood/affect, oriented x 3 Skin: normal color, warm/dry Diagnostics Laboratory Results Results Past 24 Hours Test 10/10/17 11:31 10/10/17 11:37 10/10/17 11:45 Range/Units White Blood Count 18.97 4.8-10.8 K/uL Red Blood Count 4.57 4.2-5.4 M/uL Hemoglobin 14.1 12.0-16.0 g/dL Hematocrit 39.5 37-47 % Mean Corpuscular Volume 86.4 80-100 fL Mean Corpuscular Hemoglobin 30.9 25-34 pg Mean Corpuscular Hemoglobin Concent 35.7 32-36 g/dl Platelet Count 279 130-400 K/uL Mean Platelet Volume 11.3 7.4-10.4 fL RDW Standard Deviation 39.9 36.4-46.3 fL RDW Coefficient of Variation 12.6 11.5-14.5 % Neutrophils % (Manual) 63.2 % Lymphocytes % (Manual) 24.8 % Monocytes % (Manual) 7.7 % Metamyelocytes % 0.9 % Myelocytes % 3.4 % Neutrophils # (Manual) 11.99 1.4-6.5 K/uL Total Absolute Neutrophils 11.99 1.4-6.5 K/uL Lymphocytes # (Manual) 4.70 1.2-3.4 K/uL Total Absolute Lymphocytes 4.70 1.2-3.4 K/uL Monocytes # (Manual) 1.46 0.11-0.59 K/uL Metamyelocytes # 0.17 0-0 K/uL Myelocytes # 0.64 0-0 K/uL Toxic Granulation 1+ Dohle Bodies 1+ Sodium Level 130 136-145 mmol/L Potassium Level 2.8 3.5-5.1 mmol/L Chloride Level 96 98-107 mmol/L Carbon Dioxide Level 23 21-32 mmol/L Anion Gap 11.0 3-11 mmol/L Blood Urea Nitrogen 46 7-18 mg/dl Creatinine 4.63 0.60-1.20 mg/dl Est Creatinine Clear Calc Drug Dose 14.6 ml/min Estimated GFR () 12.2 Estimated GFR (Non- 10.5 BUN/Creatinine Ratio 9.9 10-20 Random Glucose 114 70-99 mg/dl Calcium Level 9.2 8.5-10.1 mg/dl Total Bilirubin 0.4 0.2-1 mg/dl Direct Bilirubin 0.1 0-0.2 mg/dl Aspartate Amino Transf (AST/SGOT) 39 15-37 U/L Alanine Aminotransferase (ALT/SGPT) 106 12-78 U/L Alkaline Phosphatase 84 45-117 U/L Troponin I < 0.015 0-0.045 ng/ml Total Protein 7.7 6.4-8.2 gm/dl Albumin 3.7 3.4-5.0 gm/dl Lipase 206 73-393 U/L Lactic Acid Level 1.4 0.4-2.0 mmol/L Influenza Type A Antigen Neg for Influ A NEG Influenza Type B Antigen Neg for Influ B NEG Microbiology Results 10/10/17 Blood Culture, Received Pending 10/10/17 Blood Culture, Received Pending Diagnostic Radiology CXR: IMPRESSION: No acute cardiopulmonary findings. EKG EKG: Normal sinus rhythm, rate 84, left axis deviation Read by cardiology: Normal sinus rhythm Left axis deviation Abnormal ECG When compared with ECG of 21-MAR-2017 06:39, T wave inversion no longer evident in Inferior leads T wave inversion no longer evident in Anterolateral leads Confirmed by RD HILL ([id number]) on 10/10/2017 1:13:59 PM Impression Assessment and Plan HYPOTENSION SECONDARY TO DEHYDRATION/POOR APPETITE Patient received first chemo on 10/02/17 and since with decreased appetite poor oral intake and intermittent diarrhea. Dizziness with standing past couple of days. BP upon ER presentation 70/50 increases to 121/66 after IVF. Patient received 2 L NSS -IV fluids -Dietitian consult -Boost -Patient may need Megace or Marinol DARI Cr: 4.6 from baseline 1. Secondary to dehydration -IVF -Continue to monitor renal function -Avoid nephrotoxic agents and possible HYPOKALEMIA K: 2.8. Secondary to poor oral intake and diarrhea. Patient received 40 mEq K p.o. and 20 mEq K IV -Replace -Monitor electrolytes HYPONATREMIA Na: 130. Probable secondary to poor oral intake and diarrhea. -IVF -Monitor electrolytes LEUKOCYTOSIS WBC: 18. Afebrile. Negative influenza, negative chest x-ray. Normal lactic acid. Removal secondary to dehydration/chemo Pending blood cultures, pending UA -Repeat CBC and continue to monitor Hx NSTEMI No chest pain or shortness of breath. -Hold HCTZ and Lasix secondary to UTI -Continue metoprolol with holding parameters -Continue statin -Holding Plavix and aspirin secondary to planned surgery on 10/13/17 DVT Prophylaxis -Lovenox Disposition admit telemetry Full code Follows with Dr Lazaro for routine care Pt was seen with Dr Mc. See addendum Resuscitation Status Full Code VTE Prophylaxis Will order VTE Prophylaxis: Yes Additional Copies To America Lazaro M.D. (MEDICAL)
[2017-10-10 19:36] VITALS: BP 101/55; PULSE 100; TEMP 36.7; O2SAT 99
[2017-10-10 20:00] VITALS: O2SAT 97
[2017-10-10] MEDS: METOPROLOL TARTRATE 25 MG TAB PO SCH (21:02)
--- NOTE | 2017-10-10 21:37 | Medical Consult ---
Consultation Date of Consultation: Oct 10, 2017. Attending Physician: Christian Mc M.D. Reason for Consultation: breast cancer, admitted with volume depletion and DARI History of Present Illness 46 year old female with recently diagnosed right breast cancer clinical T3 by MRI cN0 CM0 ER+ MA+ Her 2 alvaro + by FISH started on neoadjuvant chemotherapy with TCH plus perjeta (Taxotere carboplatin herceptin and perjeta) she is C1 D1 was on 10/02/17. She states that she felt ok the first few days after chemo, but then since Friday she has developed diarrhea She states that she was constipated at first after chemo but she did not take any stool softeners or laxatives She denies nausea or vomiting but said she had some taste changes and decreased appetite and felt some regurgitation states that since Friday was not eating or drinking much fluids. She said she only took her anti-emetics one day didn't feel it was nausea. She noticed decreased urine output by yesterday and going very little today but feels better since getting hydration and said she is feeling much better not She denies abdominal pain but said for few days she felt like a rumbling/ discomfort in the abdomen that feels better now She states that since she had constipation initially she didn't take any imodium because she is afraid of getting constipation She denies any sick contacts but was going to her work. She denies any melena or hematochezia She denies any fever or chills or chest pain or shortness of breath or mouth soreness or arthralgias Mouth was feeling dry Past Medical/Surgical History PMH: history of CA, HTN, psoriasis, MRSA infection, dyslipidemia, recently diagnosed right breast cancer PSH: right breast biopsy, tubal ligation Medical Problems: (1) Hypokalemia Status: Acute (2) Hyponatremia Status: Acute (3) Hypotension Status: Acute Family History Diabetes mellitus FH: breast cancer Hypertension FH of breast cancer - greatgrandmother and a maternal and paternal aunt Social History Smoking Status: Never Smoker Smokeless Tobacco Use: No Alcohol Use: none Marital Status: Housing Status: lives with family Occupation Status: employed Allergies Coded Allergies: Sulfa Antibiotics (Unverified Adverse Reaction, Intermediate, swelling, 10/07/17) Current Inpatient Medications Current Inpatient Medications Medications (Trade) Dose Ordered Sig/Jolanta Route Start Time Stop Time Status Last Admin Dose Admin Acetaminophen (Tylenol Tab) 650 mg Q4H PRN PO 10/10/17 14:00 11/09/17 13:59 Ondansetron HCl (Zofran Inj) 4 mg Q6H PRN IV 10/10/17 14:00 11/09/17 13:59 Nitroglycerin (Nitrostat Tab) 0.4 mg UD PRN SL 10/10/17 14:00 11/09/17 13:59 Potassium Chloride/Sodium Chloride 1,000 ml @ 100 mls/hr Q10H IV 10/10/17 15:30 11/09/17 15:29 10/10/17 17:15 100 MLS/HR Enteral Nutritional Formula (Boost) 1 can DAILY PO 10/11/17 09:00 11/10/17 08:59 Atorvastatin Calcium (Lipitor Tab) 10 mg QAM PO 10/11/17 09:00 11/10/17 08:59 Metoprolol Tartrate (Lopressor Tab) 25 mg BID PO 10/10/17 21:00 11/09/17 20:59 10/10/17 21:02 25 MG Enoxaparin Sodium (Lovenox Inj) 30 mg Q24H SC 10/10/17 17:15 11/09/17 17:14 10/10/17 17:27 30 MG Review of Systems Constitutional: + fatigue, + problem reported (decreased appetite, taste changes), No fever, No chills, No sweats ENT: + problem reported (dry mouth), No nasal symptoms, No sore throat Respiratory: No cough, No sputum, No wheezing, No shortness of breath, No dyspnea on exertion, No dyspnea at rest Cardiovascular: No chest pain, No edema Abdomen: + diarrhea, + constipation, No pain, No nausea, No vomiting Musculoskeletal: No joint pain, No muscle pain, No swelling, No calf pain Genitourinary - Female: + problem reported (decreased urine output), No dysuria , No urinary frequency Neurologic: No weakness, No numbness/tingling Endocrine: + fatigue Hematologic / Lymphatic: No abnormal bleeding/bruising, No swollen lymph nodes Physical Exam Date Time Temp Pulse Resp B/P (MAP) Pulse Ox O2 Delivery O2 Flow Rate FiO2 10/10/17 20:00 97 Room Air 10/10/17 19:36 36.7 100 18 101/55 (70) 99 Room Air 10/10/17 16:18 36.9 105 16 128/67 Room Air 10/10/17 15:10 36.9 105 16 128/67 (87) 97 Room Air 10/10/17 14:13 92 10/10/17 13:20 93 18 154/105 99 Room Air 10/10/17 11:58 86 18 121/66 99 Room Air 10/10/17 11:46 80 10/10/17 10:55 37.0 99 18 70/50 100 Room Air General Appearance: WD/WN, no apparent distress Head: normocephalic, atraumatic Eyes: sclerae normal ENT: pharynx normal, + pertinent finding (moist buccal mucosa, no thrush) Neck: supple, no adenopathy, no JVD Respiratory/Chest: chest non-tender, lungs clear, normal breath sounds, no respiratory distress, no accessory muscle use Cardiovascular: regular rate, rhythm, no edema, no JVD, no murmur Abdomen/GI: normal bowel sounds, soft, no organomegaly, + pertinent finding ( mild LLQ tenderness, no guarding or rebound) Back: normal inspection, no CVA tenderness Extremities/Musculoskelatal: no calf tenderness, non-tender Neurologic/Psych: no motor/sensory deficits (grossly), alert, oriented x 3 Skin: warm/dry Lymphatic: no adenopathy Laboratory Results Last 24 Hours Test 10/10/17 11:31 10/10/17 11:37 10/10/17 11:45 10/10/17 18:45 White Blood Count 18.97 K/uL Red Blood Count 4.57 M/uL Hemoglobin 14.1 g/dL Hematocrit 39.5 % Mean Corpuscular Volume 86.4 fL Mean Corpuscular Hemoglobin 30.9 pg Mean Corpuscular Hemoglobin Concent 35.7 g/dl Platelet Count 279 K/uL Mean Platelet Volume 11.3 fL RDW Standard Deviation 39.9 fL RDW Coefficient of Variation 12.6 % Neutrophils % (Manual) 63.2 % Lymphocytes % (Manual) 24.8 % Monocytes % (Manual) 7.7 % Metamyelocytes % 0.9 % Myelocytes % 3.4 % Neutrophils # (Manual) 11.99 K/uL Total Absolute Neutrophils 11.99 K/uL Lymphocytes # (Manual) 4.70 K/uL Total Absolute Lymphocytes 4.70 K/uL Monocytes # (Manual) 1.46 K/uL Metamyelocytes # 0.17 K/uL Myelocytes # 0.64 K/uL Toxic Granulation 1+ Dohle Bodies 1+ Prothrombin Time 9.8 SECONDS Prothromb Time International Ratio 0.9 Sodium Level 130 mmol/L Potassium Level 2.8 mmol/L Chloride Level 96 mmol/L Carbon Dioxide Level 23 mmol/L Anion Gap 11.0 mmol/L Blood Urea Nitrogen 46 mg/dl Creatinine 4.63 mg/dl Est Creatinine Clear Calc Drug Dose 14.6 ml/min Estimated GFR () 12.2 Estimated GFR (Non- 10.5 BUN/Creatinine Ratio 9.9 Random Glucose 114 mg/dl Calcium Level 9.2 mg/dl Total Bilirubin 0.4 mg/dl Direct Bilirubin 0.1 mg/dl Aspartate Amino Transf (AST/SGOT) 39 U/L Alanine Aminotransferase (ALT/SGPT) 106 U/L Alkaline Phosphatase 84 U/L Troponin I < 0.015 ng/ml Total Protein 7.7 gm/dl Albumin 3.7 gm/dl Lipase 206 U/L Lactic Acid Level 1.4 mmol/L Influenza Type A Antigen Neg for Influ A Influenza Type B Antigen Neg for Influ B Urine Color YELLOW Urine Appearance CLEAR Urine pH 5.0 Urine Specific [place] 1.013 Urine Protein NEG Urine Glucose (UA) NEG Urine Ketones TRACE Urine Occult Blood TRACE Urine Nitrite NEG Urine Bilirubin NEG Urine Urobilinogen NEG Urine Leukocyte Esterase SMALL Urine WBC (Auto) 10-30 /hpf Urine RBC (Auto) 0-4 /hpf Urine Hyaline Casts (Auto) 1-5 /lpf Urine Epithelial Cells (Auto) >30 /lpf Urine Bacteria (Auto) NEG CXR no acute cardiopulmonary findings Assessment & Plan 46 year old female with recently diagnosed right breast cancer clinical T3 (by MRI) c N0 c M0 ER+ MA+ Her 2 alvaro negative on neoadjuvant chemotherapy with TCH and perjeta C1D9 today admitted with DARI and volume depletion and diarrhea and hypokalemia IV hydration, monitor creatinine, and also recommend renal consult discussed with Dr Dent Check C diff and stool culture Check CT scan abdomen/pelvis with oral contrast. consult GI if any colitis on CT Leukocytosis: may be from recent neulasta but recommend check CT abd/pel and f/ u cultures Zofran prn if nausea. Follow up in the office upon discharge Thank you for consult
[2017-10-10 23:59] VITALS: O2SAT 97
[2017-10-11] VITALS (7 sets, daily range): BP systolic 97–119; BP diastolic 51–67; PULSE 81–97; TEMP 36.6–37.1; O2SAT 97–99
[2017-10-11] MEDS: NSS + 20MEQ KCL 1000ML 1,000 ML IV SCH (03:50)
--- NOTE | 2017-10-11 05:50 | DIAGNOSTIC IMAGING REPORT ---
ABD/PELVIS ORAL CONT ONLY CLINICAL HISTORY: 46 years-old Female presenting with diarrhea, mild LLQ tenderness, DARI. TECHNIQUE: Multidetector CT of the abdomen and pelvis was performed after the administration of oral contrast only. IV contrast: None. A dose lowering technique was used consistent with the principles of ALARA (as low as reasonably achievable). COMPARISON: None. CT DOSE (mGy.cm): The estimated cumulative dose is 359.55 mGy.cm. 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 Lung bases: Minimal basilar opacities, likely atelectasis. Normal heart size. No pericardial or pleural effusion. Liver: Normal morphology. Normal density. Biliary: No gross biliary ductal dilatation allowing for noncontrast technique. Normal gallbladder. Pancreas: Normal noncontrast appearance. Spleen: Normal noncontrast appearance. Adrenal glands: Normal noncontrast appearance. Kidneys and ureters: Normal noncontrast appearance. No nephrolithiasis. No hydronephrosis. Normal ureters. Bladder: Normal. Pelvic organs: Normal noncontrast appearance. Bowel: Oral contrast has transited to the rectum. Diverticulosis of the sigmoid colon. Pericolonic inflammatory change associated with diverticula at the level of the distal sigmoid colon, junction of the descending and sigmoid colon, and proximal descending colon. This represents 3 separate sites of inflammation. No adjacent fluid collection. No bowel obstruction. The appendix is normal. Peritoneal cavity: No free fluid or intraperitoneal gas. Lymph nodes: No gross lymphadenopathy allowing for noncontrast technique. Vasculature: Atherosclerosis of the normal caliber abdominal aorta. Abdominal wall: Normal. Musculoskeletal: Normal. IMPRESSION: 1. Findings consistent with acute uncomplicated diverticulitis involving three separate sites including the proximal descending colon, junction of the descending and sigmoid colon, and distal sigmoid colon. No wendi CT evidence of perforation or abscess. Electronically signed by: David Whatley M.D. 10/11/2017 5:48 AM Dictated Date/Time: 10/11/2017 5:42 AM
[2017-10-11 06:17] LABS: HEMATOCRIT 32.4 % (37-47); HEMOGLOBIN 11.2 g/dL (12.0-16.0); MEAN CELL VOLUME 88.5 fL (80-100); MEAN CORPUSCULAR HEMOGLOBIN 30.6 pg (25-34); MEAN CORPUSCULAR HGB CONC 34.6 g/dl (32-36); MEAN PLATELET VOLUME 11.2 fL (7.4-10.4); PLATELET COUNT 215 K/uL (130-400); RED CELL DISTRIBUTION WIDTH CV 12.7 % (11.5-14.5); RED CELL DISTRIBUTION WIDTH SD 40.9 fL (36.4-46.3); WHITE BLOOD COUNT 22.46 K/uL (4.8-10.8)
[2017-10-11] MEDS ORDERED: CIPROFLOXACIN / D5W 200 MG in PREMIXED IN D5W 100 ML IV STA (06:42)
[2017-10-11] MEDS ORDERED: METRONIDAZOLE / NSS 500 MG in PREMIXED NSS 100 ML IV STA (06:43)
[2017-10-11 06:44] LABS: CALCIUM 7.9 mg/dl (8.5-10.1); CREATININE 1.46 mg/dl (0.60-1.20); POTASSIUM 3.6 mmol/L (3.5-5.1)
[2017-10-11] MEDS ORDERED: BOOST VANILLA ONE (07:54)
[2017-10-11] MEDS: BOOST VANILLA PO SCH (08:01)
[2017-10-11] MEDS: METOPROLOL TARTRATE 25 MG TAB PO SCH ×2 (08:02→20:20)
[2017-10-11] MEDS: ATORVASTATIN 10 MG TAB PO SCH (08:02)
[2017-10-11] MEDS ORDERED: SODIUM CHLORIDE 0.65% NA SOLN 45 ML (OCEAN) ONE (09:32)
[2017-10-11] MEDS ORDERED: NURSING DECISION MEDICATION ORDER SCH (09:45)
[2017-10-11] MEDS ORDERED: SODIUM CHLORIDE 0.65% NA SOLN 45 ML (OCEAN) PRN (10:00)
--- NOTE | 2017-10-11 10:08 | Gastrointestinal Consultation ---
Gastrointestinal Consultation Date of Consultation: Oct 11, 2017 History of Present Illness Patient is a 46 year old female whom I been asked to consult on for evidence of colitis. Is a very pleasant 46-year-old female who was recently diagnosed with a T3 breast cancer and underwent her first initiation of chemotherapy on 02 October. She presents to the hospital with a 3-4 day history of pretty significant diarrhea. She said this started occurring on Friday and has persisted till last night. She describes the diarrhea as watery brown and green in nature, with mild cramping but no overt pain. No blood. She has had no previous history of irritable bowel diarrhea or food intolerances. No recent antibiotics. No other recent infectious exposures or recent antibiotics. She has had nausea without vomiting and states that she was not drinking very much nothing tastes good to her. On admission here she was noted to be in acute renal failure with electrolyte imbalances, physical findings suggesting dehydration, and a CT scan that showed multifocal inflammation in her descending colon possibly diverticulitis. Overnight with IV fluids and conservative care including antibiotics she is dramatically improved. She is nearly without complaint this morning and feels much much better as per her. No abdominal pain unless you palpate and no fevers. Past Medical/Surgical History Medical Problems: (1) Hypokalemia Status: Acute (2) Hyponatremia Status: Acute (3) Hypotension Status: Acute Family History Diabetes mellitus FH: breast cancer Hypertension Social History Smoking Status: Never Smoker Alcohol Use: occasionally Marital Status: Housing Status: lives with family Occupation Status: employed Allergies Coded Allergies: Sulfa Antibiotics (Unverified Adverse Reaction, Intermediate, swelling, 10/07/17) Current Medications Home Meds and Scripts Medications Dose Route/Sig Max Daily Dose Days Date Category Dose Instructions Compazine (Prochlorperazine Maleate) 10 Mg Tab 10 Mg PO Q6H PRN 10/07/17 Reported Zofran (Ondansetron HCl) 8 Mg Tab 8 Mg PO UD PRN 10/07/17 Reported Lopressor (Metoprolol Tartrate) 25 Mg Tab 25 Mg PO BID 10/07/17 Reported Zestril (Lisinopril) 40 Mg Tab 40 Mg PO QAM 10/07/17 Reported Decadron (Dexamethasone) 4 Mg Tab 4 Mg PO UD PRN 10/07/17 Reported Aspirin Ec (Aspirin) 81 Mg Tab 81 Mg PO QAM 10/07/17 Reported PT PROVIDED WITH HOLDING INSTRUCTIONS BY SURGEON Hctz (Hydrochlorothiazide) 25 Mg Tab 1 Tab PO DAILY 30 05/14/17 Reported Plavix (Clopidogrel Bisulfate) 75 Mg Tab 75 Mg PO DAILY 05/14/17 Reported PROVIDED WITH HOLDING INSTRUCTIONS BY SURGEON Lipitor (Atorvastatin Calcium) 10 Mg Tab 10 Mg PO QAM 30 03/22/17 Rx Review of Systems Constitutional: + see HPI Eyes: No see HPI, No worsening of vision, No eye pain, No redness, No discharge , No diplopia, No problem reported ENT: No see HPI, No hearing loss, No unusual epistaxis, No nasal symptoms, No sore throat, No tinnitus, No dental problems, No trouble swallowing, No pain on swallowing, No problem reported Respiratory: No see HPI, No cough, No sputum, No wheezing, No shortness of breath, No dyspnea on exertion, No dyspnea at rest, No hemoptysis, No problem reported Cardiac: No see HPI, No chest pain, No orthopnea, No PND, No edema, No claudication, No palpitations, No problem reported Abdomen: No see HPI, No pain, No nausea, No vomiting, No diarrhea, No constipation, No GI bleeding, No dysphagia, No odynophagia, No acolic stools, No jaundice, No dark urine, No problem reported Musculoskeletal: No see HPI, No joint pain, No muscle pain, No swelling, No calf pain, No problem reported Neuro: No see HPI, No memory loss, No paralysis, No weakness, No numbness/ tingling, No vertigo, No balance problems, No problem reported Heme: No see HPI, No abnormal bleeding/bruising, No clotting problems, No swollen lymph nodes, No night sweats, No problem reported Physical Exam Date Time Temp Pulse Resp B/P (MAP) Pulse Ox O2 Delivery O2 Flow Rate FiO2 10/11/17 08:09 109/57 (74) 10/11/17 07:52 36.7 89 18 97/65 (76) 99 Room Air 10/11/17 04:00 Room Air 10/11/17 04:00 36.6 16 103/54 (70) 99 Room Air 10/11/17 00:36 36.8 81 17 105/56 (72) 98 Room Air 10/10/17 23:59 97 Room Air 10/10/17 20:00 97 Room Air 10/10/17 19:36 36.7 100 18 101/55 (70) 99 Room Air 10/10/17 16:18 36.9 105 16 128/67 Room Air 10/10/17 15:10 36.9 105 16 128/67 (87) 97 Room Air 10/10/17 14:13 92 10/10/17 13:20 93 18 154/105 99 Room Air 10/10/17 11:58 86 18 121/66 99 Room Air 10/10/17 11:46 80 10/10/17 10:55 37.0 99 18 70/50 100 Room Air General Appearance: WD/WN, no apparent distress Eyes: normal inspection ENT: normal ENT inspection Neck: supple Respiratory/Chest: chest non-tender, lungs clear, normal breath sounds Cardiovascular: regular rate, rhythm, no edema, no gallop Abdomen: normal bowel sounds, soft, + pertinent finding (Mild tenderness in the left lower quadrant) Extremities: normal range of motion Neurologic/Psych: legal nurse consultant II-XII nml as tested Skin: normal color Laboratory Results Last 24 Hours Test 10/10/17 11:31 10/10/17 11:37 10/10/17 11:45 10/10/17 18:45 White Blood Count 18.97 K/uL Red Blood Count 4.57 M/uL Hemoglobin 14.1 g/dL Hematocrit 39.5 % Mean Corpuscular Volume 86.4 fL Mean Corpuscular Hemoglobin 30.9 pg Mean Corpuscular Hemoglobin Concent 35.7 g/dl Platelet Count 279 K/uL Mean Platelet Volume 11.3 fL RDW Standard Deviation 39.9 fL RDW Coefficient of Variation 12.6 % Neutrophils % (Manual) 63.2 % Lymphocytes % (Manual) 24.8 % Monocytes % (Manual) 7.7 % Metamyelocytes % 0.9 % Myelocytes % 3.4 % Neutrophils # (Manual) 11.99 K/uL Total Absolute Neutrophils 11.99 K/uL Lymphocytes # (Manual) 4.70 K/uL Total Absolute Lymphocytes 4.70 K/uL Monocytes # (Manual) 1.46 K/uL Metamyelocytes # 0.17 K/uL Myelocytes # 0.64 K/uL Toxic Granulation 1+ Dohle Bodies 1+ Prothrombin Time 9.8 SECONDS Prothromb Time International Ratio 0.9 Sodium Level 130 mmol/L Potassium Level 2.8 mmol/L Chloride Level 96 mmol/L Carbon Dioxide Level 23 mmol/L Anion Gap 11.0 mmol/L Blood Urea Nitrogen 46 mg/dl Creatinine 4.63 mg/dl Est Creatinine Clear Calc Drug Dose 14.6 ml/min Estimated GFR () 12.2 Estimated GFR (Non- 10.5 BUN/Creatinine Ratio 9.9 Random Glucose 114 mg/dl Calcium Level 9.2 mg/dl Total Bilirubin 0.4 mg/dl Direct Bilirubin 0.1 mg/dl Aspartate Amino Transf (AST/SGOT) 39 U/L Alanine Aminotransferase (ALT/SGPT) 106 U/L Alkaline Phosphatase 84 U/L Troponin I < 0.015 ng/ml Total Protein 7.7 gm/dl Albumin 3.7 gm/dl Lipase 206 U/L Lactic Acid Level 1.4 mmol/L Influenza Type A Antigen Neg for Influ A Influenza Type B Antigen Neg for Influ B Urine Color YELLOW Urine Appearance CLEAR Urine pH 5.0 Urine Specific [place] 1.013 Urine Protein NEG Urine Glucose (UA) NEG Urine Ketones TRACE Urine Occult Blood TRACE Urine Nitrite NEG Urine Bilirubin NEG Urine Urobilinogen NEG Urine Leukocyte Esterase SMALL Urine WBC (Auto) 10-30 /hpf Urine RBC (Auto) 0-4 /hpf Urine Hyaline Casts (Auto) 1-5 /lpf Urine Epithelial Cells (Auto) >30 /lpf Urine Bacteria (Auto) NEG Test 10/11/17 05:53 White Blood Count 22.46 K/uL Red Blood Count 3.66 M/uL Hemoglobin 11.2 g/dL Hematocrit 32.4 % Mean Corpuscular Volume 88.5 fL Mean Corpuscular Hemoglobin 30.6 pg Mean Corpuscular Hemoglobin Concent 34.6 g/dl Platelet Count 215 K/uL Mean Platelet Volume 11.2 fL RDW Standard Deviation 40.9 fL RDW Coefficient of Variation 12.7 % Neutrophils % (Manual) 77.4 % Lymphocytes % (Manual) 10.4 % Monocytes % (Manual) 6.1 % Metamyelocytes % 2.6 % Myelocytes % 3.5 % Neutrophils # (Manual) 17.38 K/uL Total Absolute Neutrophils 17.38 K/uL Lymphocytes # (Manual) 2.34 K/uL Total Absolute Lymphocytes 2.34 K/uL Monocytes # (Manual) 1.37 K/uL Metamyelocytes # 0.58 K/uL Myelocytes # 0.79 K/uL Toxic Granulation 1+ Dohle Bodies 1+ Sodium Level 138 mmol/L Potassium Level 3.6 mmol/L Chloride Level 110 mmol/L Carbon Dioxide Level 19 mmol/L Anion Gap 9.0 mmol/L Blood Urea Nitrogen 25 mg/dl Creatinine 1.46 mg/dl Est Creatinine Clear Calc Drug Dose 46.4 ml/min Estimated GFR () 49.2 Estimated GFR (Non- 42.4 BUN/Creatinine Ratio 17.3 Random Glucose 89 mg/dl Calcium Level 7.9 mg/dl Impression Patient is a 46 year old female presenting with diarrhea, recent chemotherapy initiation for new diagnosis of breast cancer, and colitis found on CT scan. In review of her imaging and laboratory findings, certainly an infectious etiology could be possible, C. difficile has been negative, stool cultures are pending. Her white count is elevated she has inflammation on her CT scan and pain in the left lower quadrant all pointing to possible diverticulitis, she is being treated appropriately for that. I think the more likely etiology of her diarrhea and colitis may be indeed her chemotherapy regimen. There are emerging data to suggest that chemotherapy with Perjeta does cause a colitis and diarrheal type picture. Unfortunately, this is difficult to treat with potentially first-line recommendations with loperamide and/or resorting to octreotide if necessary. Fortunately she is doing well at this time and her diarrhea seemed to stop. Plan 1. Continue IV antibiotics with Cipro Flagyl for presumed diverticulitis 2. Follow symptomatology 3. Follow stool cultures 4. As needed Bentyl or Levsin for abdominal pain 5. If resolves without other interventions, and this is thought to be only from chemotherapy, consider loperamide as a prophylactic treatment prior to or with her next chemotherapeutic regimen 6. We will need to follow-up in GI clinic after chemotherapy has stopped for colonoscopy 7. Treatment of renal failure per primary team. Thank you for the consultation please call with any questions or concerns.
--- NOTE | 2017-10-11 10:45 | Hematology/Oncology Prog Note ---
Hematology/Onc Progress Note Date of Service Oct 11, 2017. Diagnoses right breast cancer diagnosed in 08/2017 ER+ DC+ Her 2 alvaro+ current treatment: neoadjuvant TCH plus perjeta Subjective Feels singificantly better today She states that she has multiple episodes or diarrhea overnight after drank the oral contrast for CT scan but this is improved this morning Appetite is improving Ate breakfast and eating a morning snack no fever or chills Review of Systems: Constitutional: + fatigue (mild), No fever, No chills Respiratory: No cough, No sputum, No wheezing, No shortness of breath Cardiovascular: No chest pain, No edema Abdomen: + pain (LLQ tender to palpation), + diarrhea (improving), No nausea , No vomiting Female : No dysuria, No hematuria Vital Signs Vital Signs Past 12 Hours Date Time Temp Pulse Resp B/P (MAP) Pulse Ox O2 Delivery O2 Flow Rate FiO2 10/11/17 08:09 109/57 (74) 10/11/17 07:52 36.7 89 18 97/65 (76) 99 Room Air 10/11/17 04:00 Room Air 10/11/17 04:00 36.6 16 103/54 (70) 99 Room Air 10/11/17 00:36 36.8 81 17 105/56 (72) 98 Room Air 10/10/17 23:59 97 Room Air Physical Exam Gen: awake and alert NAD HEENT: Anicteric no pallor Lungs: CTAB CV: S1 S2 RRR Abd: +BS soft, ND, +LLQ tenderness Ext: no edema nontender Neuro: alert and oriented x3 grossly nonfocal Skin:+psoriasis on back and elbows no ecchymoses or petechiae Laboratory Results Past 24 Hours Test 10/10/17 11:31 10/10/17 11:37 10/10/17 11:45 10/10/17 18:45 Range/Units White Blood Count 18.97 4.8-10.8 K/uL Red Blood Count 4.57 4.2-5.4 M/uL Hemoglobin 14.1 12.0-16.0 g/dL Hematocrit 39.5 37-47 % Mean Corpuscular Volume 86.4 80-100 fL Mean Corpuscular Hemoglobin 30.9 25-34 pg Mean Corpuscular Hemoglobin Concent 35.7 32-36 g/dl Platelet Count 279 130-400 K/uL Mean Platelet Volume 11.3 7.4-10.4 fL RDW Standard Deviation 39.9 36.4-46.3 fL RDW Coefficient of Variation 12.6 11.5-14.5 % Neutrophils % (Manual) 63.2 % Lymphocytes % (Manual) 24.8 % Monocytes % (Manual) 7.7 % Metamyelocytes % 0.9 % Myelocytes % 3.4 % Neutrophils # (Manual) 11.99 1.4-6.5 K/uL Total Absolute Neutrophils 11.99 1.4-6.5 K/uL Lymphocytes # (Manual) 4.70 1.2-3.4 K/uL Total Absolute Lymphocytes 4.70 1.2-3.4 K/uL Monocytes # (Manual) 1.46 0.11-0.59 K/uL Metamyelocytes # 0.17 0-0 K/uL Myelocytes # 0.64 0-0 K/uL Toxic Granulation 1+ Dohle Bodies 1+ Prothrombin Time 9.8 9.0-12.0 SECONDS Prothromb Time International Ratio 0.9 0.9-1.1 Sodium Level 130 136-145 mmol/L Potassium Level 2.8 3.5-5.1 mmol/L Chloride Level 96 98-107 mmol/L Carbon Dioxide Level 23 21-32 mmol/L Anion Gap 11.0 3-11 mmol/L Blood Urea Nitrogen 46 7-18 mg/dl Creatinine 4.63 0.60-1.20 mg/dl Est Creatinine Clear Calc Drug Dose 14.6 ml/min Estimated GFR () 12.2 Estimated GFR (Non- 10.5 BUN/Creatinine Ratio 9.9 10-20 Random Glucose 114 70-99 mg/dl Calcium Level 9.2 8.5-10.1 mg/dl Total Bilirubin 0.4 0.2-1 mg/dl Direct Bilirubin 0.1 0-0.2 mg/dl Aspartate Amino Transf (AST/SGOT) 39 15-37 U/L Alanine Aminotransferase (ALT/SGPT) 106 12-78 U/L Alkaline Phosphatase 84 45-117 U/L Troponin I < 0.015 0-0.045 ng/ml Total Protein 7.7 6.4-8.2 gm/dl Albumin 3.7 3.4-5.0 gm/dl Lipase 206 73-393 U/L Lactic Acid Level 1.4 0.4-2.0 mmol/L Influenza Type A Antigen Neg for Influ A NEG Influenza Type B Antigen Neg for Influ B NEG Urine Color YELLOW Urine Appearance CLEAR CLEAR Urine pH 5.0 4.5-7.5 Urine Specific [place] 1.013 1.000-1.030 Urine Protein NEG NEG Urine Glucose (UA) NEG NEG Urine Ketones TRACE NEG Urine Occult Blood TRACE NEG Urine Nitrite NEG NEG Urine Bilirubin NEG NEG Urine Urobilinogen NEG NEG Urine Leukocyte Esterase SMALL NEG Urine WBC (Auto) 10-30 0-5 /hpf Urine RBC (Auto) 0-4 0-4 /hpf Urine Hyaline Casts (Auto) 1-5 0-5 /lpf Urine Epithelial Cells (Auto) >30 0-5 /lpf Urine Bacteria (Auto) NEG NEG Test 10/11/17 05:53 Range/Units White Blood Count 22.46 4.8-10.8 K/uL Red Blood Count 3.66 4.2-5.4 M/uL Hemoglobin 11.2 12.0-16.0 g/dL Hematocrit 32.4 37-47 % Mean Corpuscular Volume 88.5 80-100 fL Mean Corpuscular Hemoglobin 30.6 25-34 pg Mean Corpuscular Hemoglobin Concent 34.6 32-36 g/dl Platelet Count 215 130-400 K/uL Mean Platelet Volume 11.2 7.4-10.4 fL RDW Standard Deviation 40.9 36.4-46.3 fL RDW Coefficient of Variation 12.7 11.5-14.5 % Neutrophils % (Manual) 77.4 % Lymphocytes % (Manual) 10.4 % Monocytes % (Manual) 6.1 % Metamyelocytes % 2.6 % Myelocytes % 3.5 % Neutrophils # (Manual) 17.38 1.4-6.5 K/uL Total Absolute Neutrophils 17.38 1.4-6.5 K/uL Lymphocytes # (Manual) 2.34 1.2-3.4 K/uL Total Absolute Lymphocytes 2.34 1.2-3.4 K/uL Monocytes # (Manual) 1.37 0.11-0.59 K/uL Metamyelocytes # 0.58 0-0 K/uL Myelocytes # 0.79 0-0 K/uL Toxic Granulation 1+ Dohle Bodies 1+ Sodium Level 138 136-145 mmol/L Potassium Level 3.6 3.5-5.1 mmol/L Chloride Level 110 98-107 mmol/L Carbon Dioxide Level 19 21-32 mmol/L Anion Gap 9.0 3-11 mmol/L Blood Urea Nitrogen 25 7-18 mg/dl Creatinine 1.46 0.60-1.20 mg/dl Est Creatinine Clear Calc Drug Dose 46.4 ml/min Estimated GFR () 49.2 Estimated GFR (Non- 42.4 BUN/Creatinine Ratio 17.3 10-20 Random Glucose 89 70-99 mg/dl Calcium Level 7.9 8.5-10.1 mg/dl Microbiology Results 10/10/17 Blood Culture, Received Pending 10/10/17 Blood Culture, Received Pending 10/10/17 C.difficile Toxin B Gene (PCR) - Final, Complete No C. difficile toxin B gene detected 10/10/17 Shiga Toxin Test, Received Pending 10/10/17 Stool Culture, Received Pending 10/10/17 Urine Culture, Received Pending CT abd/pel as described below 1. Findings consistent with acute uncomplicated diverticulitis involving three separate sites including the proximal descending colon, junction of the descending and sigmoid colon, and distal sigmoid colon. No wendi CT evidence of perforation or abscess. Assessment & Plan 46 year old female with right breast cancer clinical T3 by MRI N0 M0 C1D10 of neoadjuvant chemotherapy with TCH and perjeta with neulasta support She is admitted with DARI, volume depletion, diarrhea, CT scan showing acute uncomplicated diverticulosis WBC further increased today likely due to diverticulitis Appreciate GI consult. Continue cipro and flagyl diarrhea improved this morning. DARI: creatinine improved with IV hydration but still above her baseline Recommend pain control as needed - she feels comfortable right now She had plans for port placement next Friday - I messaged Dr Boyce yesterday that patient was sent to ER for DARI. Patient said she called that she was admitted but was told port placement was still planned for Friday so please let surgery know if she is still admitted Will also have her follow up with Dr Mansfield as well and will see if Dr Mansfield would consider breast surgery first if her chemotherapy will need to be delayed due to the acute diverticulitis. Adriamycin was avoided due to risk of cardiotoxicity since has a history of CT and since she will also require anti-Her 2 treatment Please call if questions Dr Saleh will be covering me from Friday to Fri week
[2017-10-11] MEDS: SODIUM CHLORIDE 0.9% 1000ML 1,000 ML IV SCH (11:20)
--- NOTE | 2017-10-11 13:04 | NEPHROLOGY CONSULTATION ---
DATE OF CONSULTATION: 10/11/2017 HISTORY OF PRESENT ILLNESS: The patient is a 46-year-old female with past medical history of NSTEMI in March 2017, hypertension, right breast cancer who is undergoing chemotherapy through Dr. Friend. She is getting neoadjuvant chemotherapy, which includes Taxotere and carboplatin, Herceptin and Perjeta. She presented to the hospital yesterday because of weakness, poor appetite, decreased urine output and lightheadedness. She did not have syncope, nausea or vomiting. She also did not have any diarrhea, but her intake of food as well as liquid was very poor. At home, she does take lisinopril as well as hydrochlorothiazide and metoprolol for hypertension, but when she presented to the Emergency Department yesterday, her blood pressure was very low. In fact, the first reading we have says 70/50. Since admission, she has received fluid and with that creatinine has gone down from 4.63 on admission to 1.46. She does not have any baseline kidney problem, does not have diabetes. She is making much more urine now and she feels significantly better and stronger. Most recent blood pressure is 98/51 and she feels significantly better. She was not taking any type of NSAIDS. PAST MEDICAL AND SURGICAL HISTORY: Breast cancer of right breast. The first chemo was on 10/02/2017 with Taxotere and carboplatin, Herceptin and Perjeta, chronic migraine, history of myocardial infarction in March 2017. FAMILY HISTORY: Diabetes, breast cancer, and hypertension. SOCIAL HISTORY: Never smoked. No alcohol. and employed. ALLERGIES: SULFA. HOME MEDICATIONS: List includes aspirin, Lipitor, Plavix, hydrochlorothiazide, lisinopril, metoprolol. REVIEW OF SYSTEMS: Unless detailed in HPI, 12 systems reviewed and negative. PHYSICAL EXAMINATION: At this time; GENERAL: Awake, alert, oriented x3. VITAL SIGNS: Blood pressure 98/51, 98% on room air, temperature 36.7, pulse rate 86, respiratory rate 18 per minute. HEENT: Mucous membrane is moist. NECK: Supple. No jugular venous distention. CHEST: Bilateral clear to auscultation. CARDIOVASCULAR: S1 and S2, regular. ABDOMEN: Soft, nontender. EXTREMITIES: Shows no edema. SKIN: Warm and no rash. LABORTORY TEST: At the time of admission, sodium 130, potassium 2.8, BUN 46, creatinine 4.6. This morning labs shows remarkable improvement with sodium now 138, potassium 3.6, BUN 25, creatinine down to 1.46, calcium 7.9. Urine yesterday showed trace occult blood, negative protein, some epithelial cells. Hemoglobin 11.2, WBC count 22,000, platelet count 215. ASSESSMENT AND PLAN: A 46-year-old female with recent diagnosis of breast cancer undergoing chemotherapy, presented to the hospital with acute renal failure, which appear to be classic prerenal type associated with hypotension. This was triggered by poor oral intake for the last 1 week or so. She was on both lisinopril as well as hydrochlorothiazide. The concomitant use of these drugs in the setting of volume depletion greatly worsens the renal failure. Luckily, renal function has improved very fast, which is a good sign and by tomorrow, I expect the kidney function to be completely normal. However, at the time of discharge, I do not want her to be on either lisinopril or hydrochlorothiazide as she does have future risk of going into renal failure in the setting of chemotherapy as well as carboplatin. If her blood pressure gets more than 150, alternate blood pressure medicine should be considered. Also, the potassium is essentially normal at this time. I will continue with the current IV fluid. Thank you very much for the consult. LEYLA
--- NOTE | 2017-10-11 13:40 | Progress Note ---
Internal Med Progress Note Date of Service: Oct 11, 2017. Provider Documentation: SUBJECTIVE: Patient is comfortable. Denies abdominal pain. Reports that her diarrhea episodes has decreased in frequency compared to recent days. OBJECTIVE: General Appearance: no apparent distress Head: normocephalic, atraumatic Eyes: normal inspection, sclerae normal ENT: hearing grossly normal, pharynx normal Neck: supple, no JVD, trachea midline Respiratory/Chest: lungs clear, normal breath sounds, no respiratory distress Cardiovascular: regular rate, rhythm, no murmur Abdomen/GI: normal bowel sounds, non tender, soft Back: no CVA tenderness Extremities/Musculoskelatal: normal inspection, no calf tenderness, no pedal edema, normal range of motion, non-tender Neurologic/Psych: alert, normal mood/affect, oriented x 3 Skin: normal color, warm/dry ASSESSMENT & PLAN: Breast cancer -recently diagnosed right breast cancer clinical T3 by MRI cN0 CM0 ER+ CT+ Her 2 alvaro + by FISH -was started on neoadjuvant chemotherapy with TCH plus perjeta (Taxotere carboplatin herceptin and perjeta) as outpatient -after 1 chemo session patient subsequently with diarrhea -patient evaluated by oncology as inpatient consult and will resume oncology follow up as outpatient after hospital discharge Diverticulitis -CT Abdomen: Findings consistent with acute uncomplicated diverticulitis involving three separate sites including the proximal descending colon, junction of the descending and sigmoid colon, and distal sigmoid colon. No wendi CT evidence of perforation or abscess. -Gastroenterology recommendations: Continue IV antibiotics with Cipro Flagyl for presumed diverticulitis, Follow stool cultures, As needed Bentyl or Levsin for abdominal pain, If resolves without other interventions and this is thought to be only from chemotherapy then consider loperamide as a prophylactic treatment prior to or with her next chemotherapeutic regimen, will need to follow-up in GI clinic after chemotherapy has stopped for colonoscopy Leukocytosis from infection vs malignancy Acute Renal failure -creatinine downtrended from 4.63 to 1.46 with IV fluids -Nephrology consult: prerenal type associated with hypotension, avoid lisinopril or hydrochlorothiazide, continue with IV fluids HYPOKALEMIA secondary to poor oral intake and diarrhea. improved after potassium supplements HYPONATREMIA Probable secondary to poor oral intake and diarrhea resolved after IV fluids History of NSTEMI in the past -No current chest pain or shortness of breath. -Hold HCTZ and Lasix secondary to UTI -Continue metoprolol with holding parameters -Continue statin -Holding Plavix and aspirin secondary for planned surgery (chemo port placement ) on 10/13/17 DVT Prophylaxis: Lovenox Vital Signs: Date Time Temp Pulse Resp B/P (MAP) Pulse Ox O2 Delivery O2 Flow Rate FiO2 10/11/17 12:00 Room Air 10/11/17 11:42 36.7 86 18 98/51 (67) 98 Room Air 10/11/17 08:09 109/57 (74) 10/11/17 08:00 Room Air 10/11/17 07:52 36.7 89 18 97/65 (76) 99 Room Air 10/11/17 04:00 Room Air 10/11/17 04:00 36.6 16 103/54 (70) 99 Room Air 10/11/17 00:36 36.8 81 17 105/56 (72) 98 Room Air 10/10/17 23:59 97 Room Air 10/10/17 20:00 97 Room Air 10/10/17 19:36 36.7 100 18 101/55 (70) 99 Room Air 10/10/17 16:18 36.9 105 16 128/67 Room Air 10/10/17 15:10 36.9 105 16 128/67 (87) 97 Room Air 10/10/17 14:13 92 Lab Results: Results Past 24 Hours Test 10/10/17 18:45 10/11/17 05:53 Range/Units Urine Color YELLOW Urine Appearance CLEAR CLEAR Urine pH 5.0 4.5-7.5 Urine Specific [place] 1.013 1.000-1.030 Urine Protein NEG NEG Urine Glucose (UA) NEG NEG Urine Ketones TRACE NEG Urine Occult Blood TRACE NEG Urine Nitrite NEG NEG Urine Bilirubin NEG NEG Urine Urobilinogen NEG NEG Urine Leukocyte Esterase SMALL NEG Urine WBC (Auto) 10-30 0-5 /hpf Urine RBC (Auto) 0-4 0-4 /hpf Urine Hyaline Casts (Auto) 1-5 0-5 /lpf Urine Epithelial Cells (Auto) >30 0-5 /lpf Urine Bacteria (Auto) NEG NEG White Blood Count 22.46 4.8-10.8 K/uL Red Blood Count 3.66 4.2-5.4 M/uL Hemoglobin 11.2 12.0-16.0 g/dL Hematocrit 32.4 37-47 % Mean Corpuscular Volume 88.5 80-100 fL Mean Corpuscular Hemoglobin 30.6 25-34 pg Mean Corpuscular Hemoglobin Concent 34.6 32-36 g/dl Platelet Count 215 130-400 K/uL Mean Platelet Volume 11.2 7.4-10.4 fL RDW Standard Deviation 40.9 36.4-46.3 fL RDW Coefficient of Variation 12.7 11.5-14.5 % Neutrophils % (Manual) 77.4 % Lymphocytes % (Manual) 10.4 % Monocytes % (Manual) 6.1 % Metamyelocytes % 2.6 % Myelocytes % 3.5 % Neutrophils # (Manual) 17.38 1.4-6.5 K/uL Total Absolute Neutrophils 17.38 1.4-6.5 K/uL Lymphocytes # (Manual) 2.34 1.2-3.4 K/uL Total Absolute Lymphocytes 2.34 1.2-3.4 K/uL Monocytes # (Manual) 1.37 0.11-0.59 K/uL Metamyelocytes # 0.58 0-0 K/uL Myelocytes # 0.79 0-0 K/uL Toxic Granulation 1+ Dohle Bodies 1+ Sodium Level 138 136-145 mmol/L Potassium Level 3.6 3.5-5.1 mmol/L Chloride Level 110 98-107 mmol/L Carbon Dioxide Level 19 21-32 mmol/L Anion Gap 9.0 3-11 mmol/L Blood Urea Nitrogen 25 7-18 mg/dl Creatinine 1.46 0.60-1.20 mg/dl Est Creatinine Clear Calc Drug Dose 46.4 ml/min Estimated GFR () 49.2 Estimated GFR (Non- 42.4 BUN/Creatinine Ratio 17.3 10-20 Random Glucose 89 70-99 mg/dl Calcium Level 7.9 8.5-10.1 mg/dl Microbiology Results 10/10/17 C.difficile Toxin B Gene (PCR) - Final, Complete No C. difficile toxin B gene detected 10/10/17 Shiga Toxin Test, Received Pending 10/10/17 Stool Culture, Received Pending 10/10/17 Urine Culture, Received Pending
[2017-10-11] MEDS: METRONIDAZOLE / NSS 500 MG in PREMIXED NSS 100 ML IV SCH ×2 (14:43→22:05)
[2017-10-11] MEDS: ENOXAPARIN 30 MG/0.3 ML SYR SC SCH (17:36)
[2017-10-11] MEDS: CIPROFLOXACIN / D5W 200 MG in PREMIXED IN D5W 100 ML IV SCH (20:19)
[2017-10-12 00:11] VITALS: BP 119/67; PULSE 88; TEMP 36.6; O2SAT 96
[2017-10-12] MEDS: SODIUM CHLORIDE 0.9% 1000ML 1,000 ML IV SCH (01:13)
[2017-10-12 04:06] VITALS: BP 125/68; PULSE 78; TEMP 36.8; O2SAT 97
[2017-10-12] MEDS: METRONIDAZOLE / NSS 500 MG in PREMIXED NSS 100 ML IV SCH ×3 (05:52→21:50)
[2017-10-12 06:53] LABS: HEMATOCRIT 31.8 % (37-47); MEAN CELL VOLUME 88.6 fL (80-100); MEAN CORPUSCULAR HEMOGLOBIN 30.6 pg (25-34); MEAN CORPUSCULAR HGB CONC 34.6 g/dl (32-36); MEAN PLATELET VOLUME 10.4 fL (7.4-10.4); PLATELET COUNT 216 K/uL (130-400); RED CELL DISTRIBUTION WIDTH CV 12.7 % (11.5-14.5); RED CELL DISTRIBUTION WIDTH SD 41.4 fL (36.4-46.3); WHITE BLOOD COUNT 25.11 K/uL (4.8-10.8)
[2017-10-12 07:29] LABS: ALBUMIN 2.5 gm/dl (3.4-5.0); CALCIUM 8.2 mg/dl (8.5-10.1); CREATININE 1.02 mg/dl (0.60-1.20); POTASSIUM 3.1 mmol/L (3.5-5.1)
[2017-10-12 07:50] VITALS: BP 138/75; PULSE 81; TEMP 36.7; O2SAT 99
[2017-10-12] MEDS: CIPROFLOXACIN / D5W 200 MG in PREMIXED IN D5W 100 ML IV SCH ×2 (07:59→20:03)
[2017-10-12] MEDS: ATORVASTATIN 10 MG TAB PO SCH (07:59)
[2017-10-12] MEDS: METOPROLOL TARTRATE 25 MG TAB PO SCH ×2 (07:59→21:52)
[2017-10-12] MEDS: BOOST VANILLA PO SCH (07:59)
[2017-10-12] MEDS ORDERED: POTASSIUM CHLORIDE 20 MEQ TABCR PO ONE (09:30)
--- NOTE | 2017-10-12 11:39 | Gastroenterology Progress Note ---
Progress Note Date of Service: Oct 12, 2017 Subjective Pt evaluation today including: conversation w/ patient Feels much better stools are starting to solidify. Walking into the shower. Medications Current Inpatient Medications Medications (Trade) Dose Ordered Sig/Jolanta Route Start Time Stop Time Status Last Admin Dose Admin Acetaminophen (Tylenol Tab) 650 mg Q4H PRN PO 10/10/17 14:00 11/09/17 13:59 Ondansetron HCl (Zofran Inj) 4 mg Q6H PRN IV 10/10/17 14:00 11/09/17 13:59 Nitroglycerin (Nitrostat Tab) 0.4 mg UD PRN SL 10/10/17 14:00 11/09/17 13:59 Enteral Nutritional Formula (Boost) 1 can DAILY PO 10/11/17 09:00 11/10/17 08:59 10/11/17 08:01 1 CAN Atorvastatin Calcium (Lipitor Tab) 10 mg QAM PO 10/11/17 09:00 11/10/17 08:59 10/12/17 07:59 10 MG Metoprolol Tartrate (Lopressor Tab) 25 mg BID PO 10/10/17 21:00 11/09/17 20:59 10/12/17 07:59 25 MG Enoxaparin Sodium (Lovenox Inj) 30 mg Q24H SC 10/10/17 17:15 11/09/17 17:14 10/11/17 17:36 30 MG Ciprofloxacin/ Dextrose 200 mg/ Prmx 100 ml @ 100 mls/hr Q12H IV 10/11/17 20:00 10/21/17 19:59 10/12/17 07:59 100 MLS/HR Metronidazole 500 mg/Prmx 100 ml @ 100 mls/hr Q8H IV 10/11/17 14:00 10/21/17 13:59 10/12/17 05:52 100 MLS/HR Sodium Chloride 1,000 ml @ 80 mls/hr [id number] IV 10/11/17 10:00 11/10/17 09:59 10/12/17 01:13 80 MLS/HR Sodium Chloride ([place] Nasal [place]) 1 sprays PRN PRN NA 10/11/17 10:00 11/10/17 09:59 Objective Vital Signs Date Time Temp Pulse Resp B/P (MAP) Pulse Ox O2 Delivery O2 Flow Rate FiO2 10/12/17 08:00 Room Air 10/12/17 07:50 36.7 81 18 138/75 (96) 99 Room Air 10/12/17 05:52 Room Air 10/12/17 04:06 36.8 78 17 125/68 (87) 97 Room Air 10/12/17 00:11 36.6 88 18 119/67 (84) 96 Room Air 10/12/17 00:00 Room Air 10/11/17 20:20 Room Air 10/11/17 19:35 37.1 97 18 116/67 (83) 98 Room Air 10/11/17 16:00 Room Air 10/11/17 15:22 36.6 91 18 119/66 (83) 97 Room Air 10/11/17 12:00 Room Air 10/11/17 11:42 36.7 86 18 98/51 (67) 98 Room Air Physical Exam General Appearance: WD/WN, no apparent distress Eyes: normal inspection ENT: normal ENT inspection Neck: supple Respiratory/Chest: chest non-tender Cardiovascular: regular rate, rhythm, no edema, no gallop Abdomen: normal bowel sounds, non tender Extremities: normal range of motion, non-tender Neurologic/Psych: signal timer II-XII nml as tested, no motor/sensory deficits Laboratory Results Last 24 Hours Test 10/12/17 06:27 White Blood Count 25.11 K/uL Red Blood Count 3.59 M/uL Hemoglobin 11.0 g/dL Hematocrit 31.8 % Mean Corpuscular Volume 88.6 fL Mean Corpuscular Hemoglobin 30.6 pg Mean Corpuscular Hemoglobin Concent 34.6 g/dl Platelet Count 216 K/uL Mean Platelet Volume 10.4 fL RDW Standard Deviation 41.4 fL RDW Coefficient of Variation 12.7 % Neutrophils % (Manual) 79.9 % Lymphocytes % (Manual) 7.0 % Monocytes % (Manual) 2.6 % Metamyelocytes % 3.5 % Myelocytes % 7.0 % Neutrophils # (Manual) 20.06 K/uL Total Absolute Neutrophils 20.06 K/uL Lymphocytes # (Manual) 1.76 K/uL Total Absolute Lymphocytes 1.76 K/uL Monocytes # (Manual) 0.65 K/uL Metamyelocytes # 0.88 K/uL Myelocytes # 1.76 K/uL Toxic Granulation 3+ Sodium Level 139 mmol/L Potassium Level 3.1 mmol/L Chloride Level 111 mmol/L Carbon Dioxide Level 21 mmol/L Anion Gap 7.0 mmol/L Blood Urea Nitrogen 13 mg/dl Creatinine 1.02 mg/dl Est Creatinine Clear Calc Drug Dose 67.6 ml/min Estimated GFR () 75.9 Estimated GFR (Non- 65.5 BUN/Creatinine Ratio 13.2 Random Glucose 95 mg/dl Calcium Level 8.2 mg/dl Magnesium Level 1.8 mg/dl Total Bilirubin 0.2 mg/dl Aspartate Amino Transf (AST/SGOT) 16 U/L Alanine Aminotransferase (ALT/SGPT) 52 U/L Alkaline Phosphatase 83 U/L Total Protein 6.0 gm/dl Albumin 2.5 gm/dl Globulin 3.5 gm/dl Albumin/Globulin Ratio 0.7 Assessment and Plan Patient is a 46 year old female presenting with diarrhea, recent chemotherapy initiation for new diagnosis of breast cancer, and colitis found on CT scan. In review of her imaging and laboratory findings, certainly an infectious etiology could be possible, C. difficile has been negative, stool cultures are pending. Her white count is elevated she has inflammation on her CT scan and pain in the left lower quadrant all pointing to possible diverticulitis, she is being treated appropriately for that. I think the more likely etiology of her diarrhea and colitis may be indeed her chemotherapy regimen. There are emerging data to suggest that chemotherapy with Perjeta does cause a colitis and diarrheal type picture. Unfortunately, this is difficult to treat with potentially first-line recommendations with loperamide and/or resorting to octreotide if necessary. Fortunately she is doing well at this time and her diarrhea seemed to stop. Plan 1. Continue IV antibiotics with Cipro Flagyl for presumed diverticulitis but would likely only treat for 5-7 days total 2. Follow symptomatology 3. Follow stool cultures for C. difficile is negative 4. As needed Bentyl or Levsin for abdominal pain 5. If resolves without other interventions, and this is thought to be only from chemotherapy, consider loperamide as a prophylactic treatment prior to or with her next chemotherapeutic regimen 6. We will need to follow-up in GI clinic after chemotherapy has stopped for colonoscopy 7. Treatment of renal failure per primary team.-Normalized today Thank you for the consultation please call with any questions or concerns.
[2017-10-12] MEDS ORDERED: MAGNESIUM SULFATE 1GM / D5W 1 GM in PREMIXED IN D5W 100 ML IV STA (12:10)
--- NOTE | 2017-10-12 12:48 | Progress Note ---
Internal Med Progress Note Date of Service: Oct 12, 2017. Provider Documentation: SUBJECTIVE: Patient is comfortable. Denies abdominal pain. Reports that diarrhea is resolving but still multiple episodes of loose stool. OBJECTIVE: General Appearance: no apparent distress Head: normocephalic, atraumatic Eyes: normal inspection, sclerae normal ENT: hearing grossly normal, pharynx normal Neck: supple, no JVD, trachea midline Respiratory/Chest: lungs clear, normal breath sounds, no respiratory distress Cardiovascular: regular rate, rhythm, no murmur Abdomen/GI: normal bowel sounds, non tender, soft Back: no CVA tenderness Extremities/Musculoskelatal: normal inspection, no calf tenderness, no pedal edema, normal range of motion, non-tender Neurologic/Psych: alert, normal mood/affect, oriented x 3 Skin: normal color, warm/dry ASSESSMENT & PLAN: Breast cancer -recently diagnosed right breast cancer clinical T3 by MRI cN0 CM0 ER+ [place]+ Her 2 alvaro + by FISH -was started on neoadjuvant chemotherapy with TCH plus perjeta (Taxotere carboplatin herceptin and perjeta) as outpatient -after 1 chemo session patient subsequently with diarrhea -patient evaluated by oncology as inpatient consult and will resume oncology follow up as outpatient after hospital discharge Diverticulitis -CT Abdomen: Findings consistent with acute uncomplicated diverticulitis involving three separate sites including the proximal descending colon, junction of the descending and sigmoid colon, and distal sigmoid colon. No wendi CT evidence of perforation or abscess. -C. difficile is negative, follow up stool culture -Machine Candle Molder suggests that the etiology of her diarrhea and colitis may be due to chemotherapy regimen. "There are emerging data to suggest that chemotherapy with Perjeta does cause a colitis and diarrheal type picture. Unfortunately, this is difficult to treat with potentially first-line recommendations with loperamide and/or resorting to octreotide if necessary" -Gastroenterology recommendations: Continue IV antibiotics with Cipro and Flagyl for presumed diverticulitis but would likely only treat for 5-7 days total, Follow stool cultures, As needed Bentyl or Levsin for abdominal pain, If resolves without other interventions and this is thought to be only from chemotherapy then consider loperamide as a prophylactic treatment prior to or with her next chemotherapeutic regimen, will need to follow-up in GI clinic after chemotherapy has stopped for colonoscopy Leukocytosis from infection vs malignancy Acute Renal failure -Nephrology consult: prerenal type associated with hypotension, avoid lisinopril or hydrochlorothiazide -creatinine downtrended from 4.63 to 1.46 to 1.02 with IV fluids -hold IV fluids for now and monitor patient's hydration status while on oral intake as DARI has resolved HYPONATREMIA Probable secondary to poor oral intake and diarrhea resolved after IV fluids HYPOKALEMIA secondary to poor oral intake and diarrhea. still needs labs and serum potassium repletion today's serum potassium 3.1 with loss of potassium likely from diarrhea or loose stools History of NSTEMI in the past -No current chest pain or shortness of breath. -Hold HCTZ and Lasix secondary to UTI -Continue metoprolol with holding parameters -Continue statin -Patient has been off Plavix and aspirin secondary for because she was due for outpatient surgery (chemo port placement) on 10/13/[address] Boyce Have requested surgical consultation Dr. Boyce on 10/12/17 whether patient should get chemo port placement as inpatient on 10/13/17 while she is here or have this surgery later. Will have patient NPO after midnight in case patient is going to the operating room on 10/13/17 DVT Prophylaxis: Lovenox Vital Signs: Date Time Temp Pulse Resp B/P (MAP) Pulse Ox O2 Delivery O2 Flow Rate FiO2 10/12/17 10:50 Room Air 10/12/17 08:00 Room Air 10/12/17 07:50 36.7 81 18 138/75 (96) 99 Room Air 10/12/17 05:52 Room Air 10/12/17 04:06 36.8 78 17 125/68 (87) 97 Room Air 10/12/17 00:11 36.6 88 18 119/67 (84) 96 Room Air 10/12/17 00:00 Room Air 10/11/17 20:20 Room Air 10/11/17 19:35 37.1 97 18 116/67 (83) 98 Room Air 10/11/17 16:00 Room Air 10/11/17 15:22 36.6 91 18 119/66 (83) 97 Room Air Lab Results: Results Past 24 Hours Test 10/12/17 06:27 Range/Units White Blood Count 25.11 4.8-10.8 K/uL Red Blood Count 3.59 4.2-5.4 M/uL Hemoglobin 11.0 12.0-16.0 g/dL Hematocrit 31.8 37-47 % Mean Corpuscular Volume 88.6 80-100 fL Mean Corpuscular Hemoglobin 30.6 25-34 pg Mean Corpuscular Hemoglobin Concent 34.6 32-36 g/dl Platelet Count 216 130-400 K/uL Mean Platelet Volume 10.4 7.4-10.4 fL RDW Standard Deviation 41.4 36.4-46.3 fL RDW Coefficient of Variation 12.7 11.5-14.5 % Neutrophils % (Manual) 79.9 % Lymphocytes % (Manual) 7.0 % Monocytes % (Manual) 2.6 % Metamyelocytes % 3.5 % Myelocytes % 7.0 % Neutrophils # (Manual) 20.06 1.4-6.5 K/uL Total Absolute Neutrophils 20.06 1.4-6.5 K/uL Lymphocytes # (Manual) 1.76 1.2-3.4 K/uL Total Absolute Lymphocytes 1.76 1.2-3.4 K/uL Monocytes # (Manual) 0.65 0.11-0.59 K/uL Metamyelocytes # 0.88 0-0 K/uL Myelocytes # 1.76 0-0 K/uL Toxic Granulation 3+ Sodium Level 139 136-145 mmol/L Potassium Level 3.1 3.5-5.1 mmol/L Chloride Level 111 98-107 mmol/L Carbon Dioxide Level 21 21-32 mmol/L Anion Gap 7.0 3-11 mmol/L Blood Urea Nitrogen 13 7-18 mg/dl Creatinine 1.02 0.60-1.20 mg/dl Est Creatinine Clear Calc Drug Dose 67.6 ml/min Estimated GFR () 75.9 Estimated GFR (Non- 65.5 BUN/Creatinine Ratio 13.2 10-20 Random Glucose 95 70-99 mg/dl Calcium Level 8.2 8.5-10.1 mg/dl Magnesium Level 1.8 1.8-2.4 mg/dl Total Bilirubin 0.2 0.2-1 mg/dl Aspartate Amino Transf (AST/SGOT) 16 15-37 U/L Alanine Aminotransferase (ALT/SGPT) 52 12-78 U/L Alkaline Phosphatase 83 45-117 U/L Total Protein 6.0 6.4-8.2 gm/dl Albumin 2.5 3.4-5.0 gm/dl Globulin 3.5 2.5-4.0 gm/dl Albumin/Globulin Ratio 0.7 0.9-2
[2017-10-12 15:17] VITALS: BP 116/74; PULSE 81; TEMP 37; O2SAT 98
[2017-10-12 18:30] LABS: ALBUMIN 2.7 gm/dl (3.4-5.0); CALCIUM 8.2 mg/dl (8.5-10.1); CREATININE 0.95 mg/dl (0.60-1.20); POTASSIUM 3.4 mmol/L (3.5-5.1)
[2017-10-12] MEDS ORDERED: POTASSIUM CHLORIDE 20 MEQ TABCR PO STA (19:03)
[2017-10-12] MEDS: ENOXAPARIN 30 MG/0.3 ML SYR SC SCH (19:06)
--- NOTE | 2017-10-12 21:12 | SURGICAL CONSULTATION ---
DATE OF CONSULTATION: 10/12/2017 HISTORY OF PRESENT ILLNESS: I have been asked by Dr. Dent to see this 46-year-old female who is known to me. She has been diagnosed with a carcinoma of the right breast, and we were planning to place A port for administration of chemotherapy tomorrow. She presented to the Emergency Room with diarrhea following administration of her first dose of chemotherapy. It was profuse. She was felt to be dehydrated. She has been trying to eat but has nausea, has no appetite. She has not vomited, however. She was felt to have a UTI as well as the significant diarrhea. PAST MEDICAL HISTORY: MA, hypertension, hyperlipidemia, carcinoma of the breast. PAST SURGICAL HISTORY: Cardiac catheterization, otherwise negative. HOME MEDICATIONS: Include aspirin, Lipitor, Plavix, hydrochlorothiazide, Zestril, Lopressor. She stopped taking her Plavix. ALLERGIES: SULFA. PHYSICAL EXAMINATION: GENERAL: Exam reveals a well-developed and well-nourished female who is now in no acute distress. VITAL SIGNS: Blood pressure 116/74, heart rate 81, respirations 18, temperature is 37.0, pulse oximetry is 98% on room air. HEENT: Exam reveals her sclerae to be anicteric. Mucous membranes are moist. NECK: Supple, with no adenopathy. MUSCULOSKELETAL: Back has no spinal or CVA tenderness. RESPIRATORY: Lungs are clear. CARDIOVASCULAR: Heart is regular. CHEST: No scars or deformities. LABORATORY DATA: WBC 25.11, H and H are 11.0 and 31.8, platelet count is 216,000, the WBC has increased to 22.46. Sodium 140, potassium 3.4, chloride 112, CO2 of 20, BUN 10, creatinine 0.95, and glucose 115. Culture of the urine revealed E. coli. ASSESSMENT AND PLAN: This patient now has acute infection. She is on antibiotics, but it would be better to wait to put the A port in. She would now like to wait until after her next dose of chemotherapy. We can discuss timing. As for now we will cancel her procedure for tomorrow.
[2017-10-12 23:00] VITALS: BP 135/81; PULSE 89; TEMP 37.2; O2SAT 99
[2017-10-13] MEDS: METRONIDAZOLE / NSS 500 MG in PREMIXED NSS 100 ML IV SCH ×2 (05:46→13:56)
[2017-10-13 06:35] LABS: HEMATOCRIT 31.2 % (37-47); HEMOGLOBIN 10.7 g/dL (12.0-16.0); MEAN CELL VOLUME 88.4 fL (80-100); MEAN CORPUSCULAR HEMOGLOBIN 30.3 pg (25-34); MEAN CORPUSCULAR HGB CONC 34.3 g/dl (32-36); MEAN PLATELET VOLUME 9.9 fL (7.4-10.4); PLATELET COUNT 192 K/uL (130-400); RED CELL DISTRIBUTION WIDTH CV 12.9 % (11.5-14.5); RED CELL DISTRIBUTION WIDTH SD 41.5 fL (36.4-46.3); WHITE BLOOD COUNT 23.64 K/uL (4.8-10.8)
[2017-10-13 07:05] LABS: CREATININE 0.92 mg/dl (0.60-1.20)
[2017-10-13] MEDS: CIPROFLOXACIN / D5W 200 MG in PREMIXED IN D5W 100 ML IV SCH (07:39)
[2017-10-13] MEDS ORDERED: POTASSIUM CHLORIDE 20 MEQ TABCR PO ONE (07:45)
[2017-10-13 08:02] VITALS: O2SAT 98
[2017-10-13 08:06] VITALS: BP_SYST 122; BP_SYST 126; BP_DIAS 83; BP_DIAS 84; PULSE 78; PULSE 80; TEMP 36.3; TEMP 36.9; O2SAT 95; O2SAT 98
[2017-10-13] MEDS: BOOST VANILLA PO SCH (08:47)
[2017-10-13] MEDS: METOPROLOL TARTRATE 25 MG TAB PO SCH (08:47)
[2017-10-13] MEDS: ATORVASTATIN 10 MG TAB PO SCH (08:47)
[2017-10-13 08:48] VITALS: BP 126/69; PULSE 89
[2017-10-13 12:11] VITALS: BP 159/79; PULSE 78; TEMP 36.9; O2SAT 98
[2017-10-13 15:13] VITALS: BP 143/77; PULSE 89; TEMP 36.7; O2SAT 98
[2017-10-13] MEDS ORDERED: METR500T PO ×2 (15:57→16:24)
[2017-10-13] MEDS ORDERED: CPR500 OR ×2 (15:59→16:24)
--- NOTE | 2017-10-13 16:14 | Progress Note ---
Internal Med Progress Note Date of Service: Oct 13, 2017. Provider Documentation: SUBJECTIVE: Patient is comfortable. Denies abdominal pain. Reports that diarrhea is resolving but still having some loose stools OBJECTIVE: General Appearance: no apparent distress Head: normocephalic, atraumatic Eyes: normal inspection, sclerae normal ENT: hearing grossly normal, pharynx normal Neck: supple, no JVD, trachea midline Respiratory/Chest: lungs clear, normal breath sounds, no respiratory distress Cardiovascular: regular rate, rhythm, no murmur Abdomen/GI: normal bowel sounds, non tender, soft Back: no CVA tenderness Extremities/Musculoskelatal: normal inspection, no calf tenderness, no pedal edema, normal range of motion, non-tender Neurologic/Psych: alert, normal mood/affect, oriented x 3 Skin: normal color, warm/dry ASSESSMENT & PLAN: Hospital Course Breast cancer -recently diagnosed right breast cancer clinical T3 by MRI cN0 CM0 ER+ [place]+ Her 2 alvaro + by FISH -was started on neoadjuvant chemotherapy with TCH plus perjeta (Taxotere carboplatin herceptin and perjeta) as outpatient -after 1 chemo session patient subsequently with diarrhea -patient evaluated by oncology as inpatient consult and will resume oncology follow up as outpatient after hospital discharge Diverticulitis -CT Abdomen: Findings consistent with acute uncomplicated diverticulitis involving three separate sites including the proximal descending colon, junction of the descending and sigmoid colon, and distal sigmoid colon. No wendi CT evidence of perforation or abscess. -C. difficile is negative, stool culture negative -Manager Cleaning suggests that the etiology of her diarrhea and colitis may be due to chemotherapy regimen. "There are emerging data to suggest that chemotherapy with Perjeta does cause a colitis and diarrheal type picture. Unfortunately, this is difficult to treat with potentially first-line recommendations with loperamide and/or resorting to octreotide if necessary" -Gastroenterology recommendations: Continue Cipro and Flagyl for presumed diverticulitis for total regimen of 5 to 7 days total, follow-up in GI clinic after chemotherapy has stopped for colonoscopy -patient to be discharged with oral ciprofloxacin and flagyl for 4 more days Leukocytosis from infection vs malignancy Acute Renal failure -Nephrology consult: prerenal type associated with hypotension, avoid lisinopril or hydrochlorothiazide -creatinine downtrended from 4.63 to 1.46 to 1.02 with IV fluids -hold IV fluids for now and monitor patient's hydration status while on oral intake as ADRI has resolved HYPONATREMIA Probable secondary to poor oral intake and diarrhea resolved after IV fluids HYPOKALEMIA secondary to poor oral intake and diarrhea -has required potassium supplements in the hospital -patient to be discharged with oral potassium supplements History of NSTEMI in the past -No current chest pain or shortness of breath. -HCTZ and Lasix was held secondary to UTI and DARI, can be resumed on discharge -Continue metoprolol -Continue statin -Patient has been off Plavix and aspirin secondary for because she was due for outpatient surgery (chemo port placement) on 10/13/[address] Boyce, this was cancelled as patient was being treated for possible gastroenterology infection -patient can resume aspirin and plavix until it can be determined when patient can get chemo port placement DISCHARGE INSTRUCTIONS -patient to be discharged with oral ciprofloxacin and flagyl -patient can resume aspirin and plavix until it can be determined when patient can get chemo port placement Follow up appointment 10/20/2017 1:00 PM America Lazaro MD [facility] 10/24/2017 1:25 PM Nicko, Gastroenterology [facility]. [address] [place] [address] (for evaluation for colonoscopy) 10/23/2017 8:45 AM Jack Friend MD Hematology/Oncology [facility] Patient will need to re-schedule with Dr. Boyce or his surgical colleagues regards for chemo port placement any questions about [facility] scheduling please call Vital Signs: Date Time Temp Pulse Resp B/P (MAP) Pulse Ox O2 Delivery O2 Flow Rate FiO2 10/13/17 15:13 36.7 89 18 143/77 (99) 98 Room Air 10/13/17 12:11 36.9 78 18 159/79 (105) 98 Room Air 10/13/17 08:48 89 126/69 (88) Room Air 10/13/17 08:06 36.9 78 16 126/84 (98) 98 Room Air 10/13/17 08:02 98 Room Air 10/13/17 07:45 Room Air 10/13/17 00:04 Room Air 10/12/17 23:00 37.2 89 16 135/81 (99) 99 Room Air Lab Results: Results Past Hours Test 10/12/17 17:50 10/13/17 06:14 Range/Units Sodium Level 140 136-145 mmol/L Potassium Level 3.4 3.5-5.1 mmol/L Chloride Level 112 98-107 mmol/L Carbon Dioxide Level 20 21-32 mmol/L Anion Gap 8.0 3-11 mmol/L Blood Urea Nitrogen 10 7-18 mg/dl Creatinine 0.95 0.92 0.60-1.20 mg/dl Est Creatinine Clear Calc Drug Dose 72.6 74.9 ml/min Estimated GFR () 82.7 85.9 Estimated GFR (Non- 71.3 74.2 BUN/Creatinine Ratio 10.8 10-20 Random Glucose 115 70-99 mg/dl Calcium Level 8.2 8.5-10.1 mg/dl Magnesium Level 2.1 1.8-2.4 mg/dl Total Bilirubin 0.3 0.2-1 mg/dl Aspartate Amino Transf (AST/SGOT) 19 15-37 U/L Alanine Aminotransferase (ALT/SGPT) 51 12-78 U/L Alkaline Phosphatase 83 45-117 U/L Total Protein 6.0 6.4-8.2 gm/dl Albumin 2.7 3.4-5.0 gm/dl Globulin 3.3 2.5-4.0 gm/dl Albumin/Globulin Ratio 0.8 0.9-2 White Blood Count 23.64 4.8-10.8 K/uL Red Blood Count 3.53 4.2-5.4 M/uL Hemoglobin 10.7 12.0-16.0 g/dL Hematocrit 31.2 37-47 % Mean Corpuscular Volume 88.4 80-100 fL Mean Corpuscular Hemoglobin 30.3 25-34 pg Mean Corpuscular Hemoglobin Concent 34.3 32-36 g/dl RDW Standard Deviation 41.5 36.4-46.3 fL RDW Coefficient of Variation 12.9 11.5-14.5 % Platelet Count 192 130-400 K/uL Mean Platelet Volume 9.9 7.4-10.4 fL
[2017-10-13] MEDS ORDERED: MCRK20 OR (16:24)
--- NOTE | 2017-10-13 16:28 | Discharge Instructions ---
Discharge Instructions Date of Service Oct 13, 2017. Admission Reason for Admission: Dari,Dehydration Discharge Discharge Diagnosis / Problem: breast cancer, acute kidney injury, dehydration , diarrhea, diverticulitis Discharge Goals Goal(s): Improve function, Improve disease control Activity Recommendations Activity Limitations: per Instructions/Follow-up section Shower/Bathe: no limitations . Instructions / Follow-Up Instructions / Follow-Up Hospital Course Breast cancer -recently diagnosed right breast cancer clinical T3 by MRI cN0 CM0 ER+ [place]+ Her 2 alvaro + by FISH -was started on neoadjuvant chemotherapy with TCH plus perjeta (Taxotere carboplatin herceptin and perjeta) as outpatient -after 1 chemo session patient subsequently with diarrhea -patient evaluated by oncology as inpatient consult and will resume oncology follow up as outpatient after hospital discharge Diverticulitis -CT Abdomen: Findings consistent with acute uncomplicated diverticulitis involving three separate sites including the proximal descending colon, junction of the descending and sigmoid colon, and distal sigmoid colon. No wendi CT evidence of perforation or abscess. -C. difficile is negative, stool culture negative -Light Truck Driver suggests that the etiology of her diarrhea and colitis may be due to chemotherapy regimen. "There are emerging data to suggest that chemotherapy with Perjeta does cause a colitis and diarrheal type picture. Unfortunately, this is difficult to treat with potentially first-line recommendations with loperamide and/or resorting to octreotide if necessary" -Gastroenterology recommendations: Continue Cipro and Flagyl for presumed diverticulitis for total regimen of 5 to 7 days total, follow-up in GI clinic after chemotherapy has stopped for colonoscopy -patient to be discharged with oral ciprofloxacin and flagyl for 4 more days Leukocytosis from infection vs malignancy Acute Renal failure -Nephrology consult: prerenal type associated with hypotension, avoid lisinopril or hydrochlorothiazide -creatinine downtrended from 4.63 to 1.46 to 1.02 with IV fluids -hold IV fluids for now and monitor patient's hydration status while on oral intake as DARI has resolved HYPONATREMIA Probable secondary to poor oral intake and diarrhea resolved after IV fluids HYPOKALEMIA secondary to poor oral intake and diarrhea -has required potassium supplements in the hospital -patient to be discharged with oral potassium supplements History of NSTEMI in the past -No current chest pain or shortness of breath. -HCTZ and Lasix was held secondary to UTI and DARI, can be resumed on discharge -Continue metoprolol -Continue statin -Patient has been off Plavix and aspirin secondary for because she was due for outpatient surgery (chemo port placement) on 10/13/[address] Boyce, this was cancelled as patient was being treated for possible gastroenterology infection -patient can resume aspirin and plavix until it can be determined when patient can get chemo port placement DISCHARGE INSTRUCTIONS -patient to be discharged with oral ciprofloxacin and flagyl -patient can resume aspirin and plavix until it can be determined when patient can get chemo port placement Follow up appointment 10/20/2017 1:00 PM America Lazaro MD [facility] 10/24/2017 1:25 PM Nicko Gastroenterology [facility]. [address] [place] [id number] (for evaluation for colonoscopy) 10/23/2017 8:45 AM Jack Friend MD Hematology/Oncology [facility] Patient will need to re-schedule with Dr. Boyce or his surgical colleagues regards for chemo port placement any questions about [facility] scheduling please call Current Hospital Diet Patient's current hospital diet: AHA Diet (Heart Healthy) Discharge Diet Recommended Diet: AHA Diet (Heart Healthy) Pending Studies Studies pending at discharge: no Laboratory Results 10/13/17 06:14 10/12/17 17:50 10/13/17 06:14 Test 10/10/17 11:31 10/10/17 11:37 10/10/17 11:45 10/10/17 18:45 Prothrombin Time 9.8 SECONDS (9.0-12.0) Prothromb Time International Ratio 0.9 (0.9-1.1) Direct Bilirubin 0.1 mg/dl (0-0.2) Troponin I < 0.015 ng/ml (0-0.045) Lipase 206 U/L (73-393) Lactic Acid Level 1.4 mmol/L (0.4-2.0) Influenza Type A Antigen Neg for Influ A (NEG) Influenza Type B Antigen Neg for Influ B (NEG) Urine Color YELLOW Urine Appearance CLEAR (CLEAR) Urine pH 5.0 (4.5-7.5) Urine Specific [place] 1.013 (1.000-1.030) Urine Protein NEG (NEG) Urine Glucose (UA) NEG (NEG) Urine Ketones TRACE (NEG) Urine Occult Blood TRACE (NEG) Urine Nitrite NEG (NEG) Urine Bilirubin NEG (NEG) Urine Urobilinogen NEG (NEG) Urine Leukocyte Esterase SMALL (NEG) Urine WBC (Auto) 10-30 /hpf (0-5) Urine RBC (Auto) 0-4 /hpf (0-4) Urine Hyaline Casts (Auto) 1-5 /lpf (0-5) Urine Epithelial Cells (Auto) >30 /lpf (0-5) Urine Bacteria (Auto) NEG (NEG) Test 10/11/17 05:53 10/12/17 06:27 10/12/17 17:50 10/13/17 06:14 Dohle Bodies 1+ Neutrophils % (Manual) 79.9 % Lymphocytes % (Manual) 7.0 % Monocytes % (Manual) 2.6 % Metamyelocytes % 3.5 % Myelocytes % 7.0 % Neutrophils # (Manual) 20.06 K/uL (1.4-6.5) Total Absolute Neutrophils 20.06 K/uL (1.4-6.5) Lymphocytes # (Manual) 1.76 K/uL (1.2-3.4) Total Absolute Lymphocytes 1.76 K/uL (1.2-3.4) Monocytes # (Manual) 0.65 K/uL (0.11-0.59) Metamyelocytes # 0.88 K/uL (0-0) Myelocytes # 1.76 K/uL (0-0) Toxic Granulation 3+ Anion Gap 8.0 mmol/L (3-11) BUN/Creatinine Ratio 10.8 (10-20) Calcium Level 8.2 mg/dl (8.5-10.1) Magnesium Level 2.1 mg/dl (1.8-2.4) Total Bilirubin 0.3 mg/dl (0.2-1) Aspartate Amino Transf (AST/SGOT) 19 U/L (15-37) Alanine Aminotransferase (ALT/SGPT) 51 U/L (12-78) Alkaline Phosphatase 83 U/L (45-117) Total Protein 6.0 gm/dl (6.4-8.2) Albumin 2.7 gm/dl (3.4-5.0) Globulin 3.3 gm/dl (2.5-4.0) Albumin/Globulin Ratio 0.8 (0.9-2) Red Blood Count 3.53 M/uL (4.2-5.4) Mean Corpuscular Volume 88.4 fL (80-100) Mean Corpuscular Hemoglobin 30.3 pg (25-34) Mean Corpuscular Hemoglobin Concent 34.3 g/dl (32-36) RDW Standard Deviation 41.5 fL (36.4-46.3) RDW Coefficient of Variation 12.9 % (11.5-14.5) Mean Platelet Volume 9.9 fL (7.4-10.4) Est Creatinine Clear Calc Drug Dose 74.9 ml/min Estimated GFR () 85.9 Estimated GFR (Non- 74.2 Date/Time Source Procedure Growth Status 10/10/17 11:31 Blood Blood Culture - Preliminary NO GROWTH TO DATE. Resulted 10/10/17 22:35 Stool C.difficile Toxin B Gene (PCR) - Final No C. difficile toxin B gene detected Complete 10/10/17 18:45 Urine , Clean Catch Urine Culture - Final Escherichia Coli Complete Medical Emergencies . Who to Call and When: Medical Emergencies: If at any time you feel your situation is an emergency, please call 911 immediately. . Non-Emergent Contact Non-Emergency issues call your: Primary Care Provider, Light Truck Driver, Oncologist Call Non-Emergent contact if: you have any medication questions . . "Provider Documentation" section prepared by Christian Mc. .
[2017-10-13 16:34] VITALS: BP 143/77; PULSE 89; TEMP 36.7; O2SAT 98
--- NOTE | 2017-10-13 16:36 | Discharge Summary ---
Discharge Summary Date of Service Oct 13, 2017. Discharge Summary Admission Date: Oct 10, 2017 at 13:52 Discharge Date: Oct 13, 2017 Principal Diagnosis: breast cancer, acute kidney injury, dehydration, diarrhea, diverticulitis, hypokalemia from GI losses Medication Reconciliation New Medications: Ciprofloxacin (Ciprofloxacin HCl) 500 Mg Tab 1 TAB OR Q12H for 4 Days, #8 TAB Metronidazole (Flagyl) 500 Mg Tab 500 MG PO TID for 4 Days, #12 TAB Potassium Chloride (Klor-Con M20) 20 Meq Tabcr 1 TAB OR DAILY for 4 Days, #4 TAB Continued Medications: Aspirin (Aspirin Ec) 81 Mg Tab 81 MG PO QAM PT PROVIDED WITH HOLDING INSTRUCTIONS BY SURGEON Atorvastatin (Lipitor) 10 Mg Tab 10 MG PO QAM for 30 Days, #30 TAB Clopidogrel (Plavix) 75 Mg Tab 75 MG PO DAILY, TAB PROVIDED WITH HOLDING INSTRUCTIONS BY SURGEON Dexamethasone (Decadron) 4 Mg Tab 4 MG PO UD PRN for BEFORE CHEMO, TAB Hydrochlorothiazide (Hctz) 25 Mg Tab 1 TAB PO DAILY for 30 Days, #30 TAB 5 Refills Lisinopril (Zestril) 40 Mg Tab 40 MG PO QAM, TAB Metoprolol Tartrate (Lopressor) (Lopressor) 25 Mg Tab 25 MG PO BID, TAB Ondansetron Hcl (Zofran) 8 Mg Tab 8 MG PO UD PRN for Nausea, TAB Prochlorperazine Maleate (Compazine) 10 Mg Tab 10 MG PO Q6H PRN for Nausea, TAB Admission Information HPI (per Admitting provider): Pt is 46 y/o F with PMH and STEMI, HTN, right breast CA presented to ER with complaint weakness. Patient with recent diagnosis right breast CA had first chemo treatment on 10/02/17 with Taxotere, carboplatin, Herceptin, Perjeta. Since with fatigue, decreased appetite and having loose BM's. Patient admits last several days has not been eating and drinking, drinking less than 20 ounces of water daily. Has noticed decreased urine output and dizziness with standing. Denies syncope, nausea, vomiting. No chemo treatments since. Patient is to have port placement on 10/13/17, and aspirin and Plavix are on hold at this time. Hx NSTEMI 03/2017 had cardiac catheterization done - showed mostly normal coronaries except very distal RCA, no stenting performed and pt on medical management. Denies any recurrent CP, SOB. Denies fever/chills, diaphoresis, FERNANDES, syncope, vision changes, neck pain, orthopnea, palpitations, cough, sore throat, choking, otalgia, rhinorrhea, abdominal pain, paresthesias, weakness, extremity weakness, extremity edema, rashes, dysuria, hematuria. Physical Exam (per Admitting): General Appearance: WD/WN, no apparent distress Head: normocephalic, atraumatic Eyes: normal inspection, sclerae normal ENT: hearing grossly normal, pharynx normal, + pertinent finding (Mucous membranes dry) Neck: supple, no JVD, trachea midline Respiratory/Chest: lungs clear, normal breath sounds, no respiratory distress Cardiovascular: regular rate, rhythm, no murmur Abdomen/GI: normal bowel sounds, non tender, soft Back: no CVA tenderness Extremities/Musculoskelatal: normal inspection, no calf tenderness, normal capillary refill, no pedal edema, normal range of motion, non-tender Neurologic/Psych: alert, normal mood/affect, oriented x 3 Skin: normal color, warm/dry Hospital Course Hospital Course Breast cancer -recently diagnosed right breast cancer clinical T3 by MRI cN0 CM0 ER+ VT+ Her 2 alvaro + by FISH -was started on neoadjuvant chemotherapy with TCH plus perjeta (Taxotere carboplatin herceptin and perjeta) as outpatient -after 1 chemo session patient subsequently with diarrhea -patient evaluated by oncology as inpatient consult and will resume oncology follow up as outpatient after hospital discharge Diverticulitis -CT Abdomen: Findings consistent with acute uncomplicated diverticulitis involving three separate sites including the proximal descending colon, junction of the descending and sigmoid colon, and distal sigmoid colon. No wendi CT evidence of perforation or abscess. -C. difficile is negative, stool culture negative -Email Marketing Coordinator suggests that the etiology of her diarrhea and colitis may be due to chemotherapy regimen. "There are emerging data to suggest that chemotherapy with Perjeta does cause a colitis and diarrheal type picture. Unfortunately, this is difficult to treat with potentially first-line recommendations with loperamide and/or resorting to octreotide if necessary" -Gastroenterology recommendations: Continue Cipro and Flagyl for presumed diverticulitis for total regimen of 5 to 7 days total, follow-up in GI clinic after chemotherapy has stopped for colonoscopy -patient to be discharged with oral ciprofloxacin and flagyl for 4 more days Leukocytosis from infection vs malignancy Acute Renal failure -Nephrology consult: prerenal type associated with hypotension, avoid lisinopril or hydrochlorothiazide -creatinine downtrended from 4.63 to 1.46 to 1.02 with IV fluids -hold IV fluids for now and monitor patient's hydration status while on oral intake as DARI has resolved HYPONATREMIA Probable secondary to poor oral intake and diarrhea resolved after IV fluids HYPOKALEMIA secondary to poor oral intake and diarrhea -has required potassium supplements in the hospital -patient to be discharged with oral potassium supplements History of NSTEMI in the past -No current chest pain or shortness of breath. -HCTZ and Lasix was held secondary to UTI and DARI, can be resumed on discharge -Continue metoprolol -Continue statin -Patient has been off Plavix and aspirin secondary for because she was due for outpatient surgery (chemo port placement) on 10/13/[address] Boyce, this was cancelled as patient was being treated for possible gastroenterology infection -patient can resume aspirin and plavix until it can be determined when patient can get chemo port placement DISCHARGE INSTRUCTIONS -patient to be discharged with oral ciprofloxacin and flagyl -patient can resume aspirin and plavix until it can be determined when patient can get chemo port placement Follow up appointment 10/20/2017 1:00 PM America Lazaro MD [facility] 10/24/2017 1:25 PM [facility]. [address] [place] [address] (for evaluation for colonoscopy) 10/23/2017 8:45 AM Jack Friend MD Hematology/Oncology [facility] Patient will need to re-schedule with Dr. Boyce or his surgical colleagues regards for chemo port placement any questions about [facility] scheduling please call Total time spent on discharge = 40 minutes This includes examination of the patient, discharge planning, medication reconciliation, and communication with other providers. Discharge Instructions see above
== END 2017-10-13 16:51 | disposition home or self-care (01) | DRG 598 ==
LOC: C.EDB 10:43 → C.2E 13:52 → ENRESERV 14:07 → C.MSN 10-12 10:52
PROVIDERS: ADMIT Family Medicine; ATTEND Hospitalist
DX: C50.911 Malignant neoplasm of unspecified site of right female breast (principal); N17.9 Acute kidney failure, unspecified; K57.32 Diverticulitis of large intestine without perforation or abscess without bleeding; E87.1 Hypo-osmolality and hyponatremia; N39.0 Urinary tract infection, site not specified; B96.20 Unspecified Escherichia coli [E. coli] as the cause of diseases classified elsewhere; I95.9 Hypotension, unspecified; R19.7 Diarrhea, unspecified; T45.1X5A Adverse effect of antineoplastic and immunosuppressive drugs, initial encounter; E87.6 Hypokalemia; R63.0 Anorexia; I10 Essential (primary) hypertension; E78.5 Hyperlipidemia, unspecified; I25.2 Old myocardial infarction; Z86.14 Personal history of Methicillin resistant Staphylococcus aureus infection; Z79.02 Long term (current) use of antithrombotics/antiplatelets; Z79.82 Long term (current) use of aspirin; Z79.899 Other long term (current) drug therapy; Z88.2 Allergy status to sulfonamides; Z80.3 Family history of malignant neoplasm of breast; Z82.49 Family history of ischemic heart disease and other diseases of the circulatory system; Z83.3 Family history of diabetes mellitus

== ENCOUNTER 2017-10-28 08:16 | Emergency (ER) | payer OTHER ==
[~2017-10-28] VITALS: Ht 162.6 cm; Wt 72.9 kg
[~2017-10-28 08:16] MED LIST changes: +CPR500 OR; +MCRK20 OR; +METR500T PO
[2017-10-28 08:22] VITALS: TEMP 36.7; Ht 162.6 cm; Wt 72.9 kg
[2017-10-28] MEDS ORDERED: SODIUM CHLORIDE 0.9% 1000ML 2,000 ML IV STA (08:30)
[2017-10-28] MEDS ORDERED: OXYMETAZOLINE HCL 0.05% NA SPR 15 ML BTL ONE ×2 (08:34→14:42)
[2017-10-28 08:50] LABS: HEMATOCRIT 32.2 % (37-47); HEMOGLOBIN 10.8 g/dL (12.0-16.0); MEAN CELL VOLUME 89.7 fL (80-100); MEAN CORPUSCULAR HEMOGLOBIN 30.1 pg (25-34); MEAN CORPUSCULAR HGB CONC 33.5 g/dl (32-36); MEAN PLATELET VOLUME 11.3 fL (7.4-10.4); PLATELET COUNT 282 K/uL (130-400); RED CELL DISTRIBUTION WIDTH CV 13.8 % (11.5-14.5); RED CELL DISTRIBUTION WIDTH SD 45.1 fL (36.4-46.3); WHITE BLOOD COUNT 3.53 K/uL (4.8-10.8)
--- NOTE | 2017-10-28 08:54 | DIAGNOSTIC IMAGING REPORT ---
CHEST ONE VIEW PORTABLE CLINICAL HISTORY: Hypotension. Breast cancer. COMPARISON STUDY: Chest radiograph October 10, 2017. FINDINGS: There is slight elevation of the right hemidiaphragm. No pneumothorax or pleural effusion is noted. There is no consolidation or evidence for pulmonary edema. Cardiomediastinal silhouette is unremarkable. IMPRESSION: 1. No acute cardiopulmonary findings. 2. Mild elevation of the right hemidiaphragm. Electronically signed by: Denis Antoine M.D. 10/28/2017 8:53 AM Dictated Date/Time: 10/28/2017 8:51 AM
[2017-10-28 08:55] LABS: ISTAT CREATININE 0.9 mg/dl (0.6-1.3); ISTAT IONIZED CALCIUM 1.16 mmol/l (1.12-1.32); ISTAT POTASSIUM 3.2 mEq/L (3.3-5.0)
[2017-10-28 09:00] LABS: PTT PATIENT 21.6 SECONDS (21.0-31.0)
[2017-10-28 09:06] LABS: ALBUMIN 3.1 gm/dl (3.4-5.0); CALCIUM 8.5 mg/dl (8.5-10.1); CREATININE 0.96 mg/dl (0.60-1.20); POTASSIUM 3.2 mmol/L (3.5-5.1)
[2017-10-28 09:09] LABS: TOTAL PROTEIN 6.4 gm/dl (6.4-8.2)
--- NOTE | 2017-10-28 09:11 | EMERGENCY ROOM VISIT NOTE ---
History Report prepared by Kar: Keven Ashford Under the Supervision of: Dr. Stephanie Doss M.D. First contact with patient: 08:29 Chief Complaint: NOSE BLEED (MINOR) Stated Complaint: BLOODY NOSE History of Present Illness The patient is a 46 year old female who presents to the Emergency Room intermittently vomiting large amounts of blood which stated at 0545 this morning , 3 hours ago. The patient's symptoms began this morning with a nose bleed after blowing her nose. She notes that she did blow several large clots out of her nose. The patient estimates that she has vomited large amounts of blood several. The patient is currently receiving chemotherapy treatments for localized breast cancer. Source of History: patient Onset: 3 hours ago Position: nose Quality: other (Nosebleed) Timing: intermittent Associated Symptoms: + vomiting (large amounts of blood) Review of Systems See HPI for pertinent positives & negatives. A total of 10 systems reviewed and were otherwise negative. Past Medical & Surgical Medical Problems: (1) DARI (acute kidney injury) (2) Breast CA (3) Dehydration (4) Migraines (5) NSTEMI (non-ST elevated myocardial infarction) Surgical Problems: (1) Hx of cardiac catheterization (2) No history of previous surgery Family History Diabetes mellitus FH: breast cancer Hypertension Social History Smoking Status: Never Smoker Alcohol Use: occasionally Marital Status: Housing Status: lives with family Occupation Status: employed Current/Historical Medications Scheduled Aspirin (Aspirin Ec), 81 MG PO QAM Atorvastatin (Lipitor), 10 MG PO QAM Clopidogrel (Plavix), 75 MG PO DAILY Hydrochlorothiazide (Hctz), 1 TAB PO DAILY Lisinopril (Zestril), 40 MG PO QAM Metoprolol Tartrate (Lopressor) (Lopressor), 25 MG PO BID Scheduled PRN Dexamethasone (Decadron), 4 MG PO UD PRN for BEFORE CHEMO Allergies Coded Allergies: Sulfa Antibiotics (Unverified Adverse Reaction, Intermediate, swelling, ) Physical Exam Vital Signs Date Time Temp Pulse Resp B/P (MAP) Pulse Ox O2 Delivery O2 Flow Rate FiO2 10/28/17 14:40 105 16 141/85 97 10/28/17 13:49 101 17 145/73 Room Air 10/28/17 12:32 100 17 130/72 99 4/24/18 11:22 97 17 Room Air 10/28/17 10:49 103 18 151/83 100 Room Air 10/28/17 09:33 91 18 122/79 98 Room Air 10/28/17 09:12 89 18 119/74 98 Room Air 10/28/17 08:34 108 10/28/17 08:22 36.7 112 18 96 Room Air Physical Exam Vital signs reviewed. General: chronically ill appearing, anxious. HEENT: No scleral icterus, PERRLA, neck supple. Atraumatic. No active epistaxis , there is a small clot in the posterior oropharynx. Alopecia. Cardiovascular: Tachycardic rate and normal rhythm, no extra sounds. Pulmonary: Clear to auscultation bilaterally, normal work of breathing. Abdomen: Soft, nontender, nondistended, positive bowel sounds. Musculoskeletal: Atraumatic, no peripheral edema. Neurologic: Patient awake alert and oriented x 3, full strength in all 4 extremities. Cranial nerves 2 through 12 grossly intact. Skin: Warm, dry, no rash Medical Decision & Procedures ER Provider Diagnostic Interpretation: Radiology results as stated below per my review and radiologist interpretation: CHEST ONE VIEW PORTABLE CLINICAL HISTORY: Hypotension. Breast cancer. COMPARISON STUDY: Chest radiograph October 10, 2017. FINDINGS: There is slight elevation of the right hemidiaphragm. No pneumothorax or pleural effusion is noted. There is no consolidation or evidence for pulmonary edema. Cardiomediastinal silhouette is unremarkable. IMPRESSION: 1. No acute cardiopulmonary findings. 2. Mild elevation of the right hemidiaphragm. Electronically signed by: Denis Antoine M.D. 10/28/2017 8:53 AM Dictated Date/Time: 10/28/2017 8:51 AM Laboratory Results 10/28/17 08:32 Red Blood Count 3.59, Mean Corpuscular Volume 89.7, Mean Corpuscular Hemoglobin 30.1, Mean Corpuscular Hemoglobin Concent 33.5, Mean Platelet Volume 11.3, Neutrophils (%) (Auto) 40.8, Lymphocytes (%) (Auto) 37.4, Monocytes (%) (Auto) 4.2, Eosinophils (%) (Auto) 7.4, Basophils (%) (Auto) 1.4, Neutrophils # (Auto) 1.44, Lymphocytes # (Auto) 1.32, Monocytes # (Auto) 0.15, Eosinophils # (Auto) 0.26, Basophils # (Auto) 0.05 10/28/17 08:32 Test 10/28/17 08:32 10/28/17 08:41 White Blood Count 3.53 K/uL (4.8-10.8) Red Blood Count 3.59 M/uL (4.2-5.4) Hemoglobin 10.8 g/dL (12.0-16.0) Hematocrit 32.2 % (37-47) Mean Corpuscular Volume 89.7 fL (80-100) Mean Corpuscular Hemoglobin 30.1 pg (25-34) Mean Corpuscular Hemoglobin Concent 33.5 g/dl (32-36) Platelet Count 282 K/uL (130-400) Mean Platelet Volume 11.3 fL (7.4-10.4) Neutrophils (%) (Auto) 40.8 % Lymphocytes (%) (Auto) 37.4 % Monocytes (%) (Auto) 4.2 % Eosinophils (%) (Auto) 7.4 % Basophils (%) (Auto) 1.4 % Neutrophils # (Auto) 1.44 K/uL (1.4-6.5) Lymphocytes # (Auto) 1.32 K/uL (1.2-3.4) Monocytes # (Auto) 0.15 K/uL (0.11-0.59) Eosinophils # (Auto) 0.26 K/uL (0-0.5) Basophils # (Auto) 0.05 K/uL (0-0.2) RDW Standard Deviation 45.1 fL (36.4-46.3) RDW Coefficient of Variation 13.8 % (11.5-14.5) Immature Granulocyte % (Auto) 8.8 % Immature Granulocyte # (Auto) 0.31 K/uL (0.00-0.02) Toxic Vacuolation 2+ Platelet Estimate NORMAL Large Platelets 2+ Prothrombin Time 10.1 SECONDS (9.0-12.0) Prothromb Time International Ratio 1.0 (0.9-1.1) Activated Partial Thromboplast Time 21.6 SECONDS (21.0-31.0) Partial Thromboplastin Ratio 0.8 Est Creatinine Clear Calc Drug Dose 70.9 ml/min Estimated GFR () 81.6 Estimated GFR (Non- 70.4 BUN/Creatinine Ratio 22.9 (10-20) Calcium Level 8.5 mg/dl (8.5-10.1) Total Bilirubin 0.7 mg/dl (0.2-1) Direct Bilirubin 0.2 mg/dl (0-0.2) Aspartate Amino Transf (AST/SGOT) 12 U/L (15-37) Alanine Aminotransferase (ALT/SGPT) 30 U/L (12-78) Alkaline Phosphatase 60 U/L (45-117) Total Protein 6.4 gm/dl (6.4-8.2) Albumin 3.1 gm/dl (3.4-5.0) Bedside Hemoglobin 10.9 g/dl (12.0-16.0) Bedside Hematocrit 32 % (37-47) Bedside Sodium 135 mEq/L (135-144) Bedside Potassium 3.2 mEq/L (3.3-5.0) Bedside Chloride 94 mEq/L (101-112) Bedside Total CO2 27 mEq/l (24-31) Anion Gap 18.0 mmol/L (16-25) Bedside Blood Urea Nitrogen 23 mg/dl (7-18) Bedside Creatinine 0.9 mg/dl (0.6-1.3) Bedside Glucose (other) 161 mg/dl (70-99) Bedside Ionized Calcium (Mylene) 1.16 mmol/l (1.12-1.32) Laboratory results per my review. Medications Administered Medications (Trade) Dose Ordered Sig/Jolanta Route Start Time Stop Time Status Last Admin Dose Admin Sodium Chloride 2,000 ml @ 999 mls/hr Q2H1M STAT IV 10/28/17 08:30 10/28/17 10:30 DC 10/28/17 08:30 999 MLS/HR Potassium Chloride 100 ml @ 100 mls/hr NOW STAT IV 10/28/17 11:10 10/28/17 12:09 DC 10/28/17 12:18 100 MLS/HR Oxymetazoline HCl (Afrin 0.05% Nasal [place]) 75 sprays STK-MED ONCE .ROUTE 10/28/17 14:42 10/28/17 14:43 DC 10/28/17 14:46 75 SPRAYS ECG Per My Interpretation Indication: other (hematemesis) Rate (beats per minute): 88 Findings: nonspecific-ST abn (Lateral), no ectopy ED Course 828: Past medical records reviewed. The patient was evaluated in room B1. A complete history and physical examination was performed. 0830: Ordered Sodium Chloride 2000 mL @ 999 mL/hr IV. 0834: Ordered Oxymetazoline HCl 75 sprays. 1110: Ordered Potassium Chloride 100 mL @ 100 mL/hr IV. 1201: Upon reevaluation, the patient appeared to have improvement of her symptoms. I discussed findings with her. She verbalized agreement of the treatment plan. The patient was discharged home. Medical Decision Differential diagnosis: Etiologies such as anterior epistaxis, coagulopathy, traumatic injury, fracture , septal hematoma, posterior epistaxis as well as other pathologies were entertained. This patient was evaluated and appeared to be in some discomfort. IV access was obtained and laboratory work was drawn. Patient was placed on the health unit coordinator. Vital signs have remained stable. She was given 2 L of IV normal saline solution. IV Zofran was administered for nausea. Chest x-ray was performed and is clear. I suspect the patient's hematemesis is secondary to epistaxis and swallowed blood. It is a dark red blood. Hemoglobin seems to be stable. Patient was given IV potassium for K of 3.2. Patient was observed for many hours in the emergency department without any further bleeding. She tolerated a lunch tray without difficulty. She was discharged to follow-up with her PCP with epistaxis instructions. She will return to the ER for worsening symptoms or any medical concerns. Medication Reconcilliation Current Medication List: was personally reviewed by me Blood Pressure Screening Patient's blood pressure: Normal blood pressure Impression Primary Impression: Epistaxis Scribe Attestation The scribe's documentation has been prepared under my direction and personally reviewed by me in its entirety. I confirm that the note above accurately reflects all work, treatment, procedures, and medical decision making performed by me. Departure Information Dispostion Home / Self-Care Referrals America Lazaro M.D. (MEDICAL) (PCP) Forms HOME CARE DOCUMENTATION FORM, IMPORTANT VISIT INFORMATION, WORK / SCHOOL INSTRUCTIONS Patient Instructions My [facility] Additional Instructions Diagnosis: Nosebleed Avoid scratching, rubbing, picking, or blowing your nose. The flat drier your nasal passages the more likely they are to bleed. The following two products are available [id number] at most drug stores/pharmacies: [place] nasal spray or similar generic saline spray to keep the nose moist 3 to 4 times a day or Apply [place] gel 2-3 times daily to the nostrils to keep them moist. If bleeding recurs apply direct pressure for an uninterrupted 20 minutes. On and off pressure is much less effective because it will disturb the clots that are forming. If the bleeding is still a problem after 20 minutes, use 3-4 sprays of Afrin nasal spray in the bleeding nostril or both nostrils and apply the clamp. Return to the emergency department if you are unable to control the bleeding. Follow-up with your primary care physician in 2 to 3 days for a recheck of your current condition if problems persist.
[2017-10-28 09:16] LABS: BASO % 1.4 %; BASO ABS # 0.05 K/uL (0-0.2); EOS % 7.4 %; EOS ABS # 0.26 K/uL (0-0.5); IG# 0.31 K/uL (0.00-0.02); LYMPH % 37.4 %; LYMPH ABS # 1.32 K/uL (1.2-3.4); MONO % 4.2 %; MONO ABS # 0.15 K/uL (0.11-0.59); NEUT % 40.8 %; NEUT ABS # 1.44 K/uL (1.4-6.5)
[2017-10-28] MEDS ORDERED: POTASSIUM CHLR 10 MEQ / WTR 100 ML IV STA (11:10)
[2017-10-28 14:40] VITALS: BP 141/85; PULSE 105; O2SAT 97
== END 2017-10-28 14:54 | disposition home or self-care (01) ==
LOC: C.EDB 08:18
DX: R04.0 Epistaxis (principal); C50.919 Malignant neoplasm of unspecified site of unspecified female breast; Z79.899 Other long term (current) drug therapy; Z79.82 Long term (current) use of aspirin; Z80.3 Family history of malignant neoplasm of breast; Z88.2 Allergy status to sulfonamides

== ENCOUNTER 2017-11-10 11:39 | Day surgery (SDC) | payer OTHER ==
[2017-10-07 13:35] VITALS: BMI 28.0
[~2017-11-10] VITALS: Ht 162.6 cm; Wt 71.5 kg
[~2017-11-10 11:39] MED LIST changes: +CEFAZOLIN 2000MG IV PUSH 15 ML IV SCH; -CPR500 OR; +LACTATED RINGER'S 1000ML 1,000 ML IV SCH; +LACTATED RINGER'S 1000ML 500 ML IV SCH; -MCRK20 OR; -METR500T PO; -ONDA-170 PO; -PROC1TAB5 PO
[2017-11-10] MEDS ORDERED: POTA10TA PO (12:18)
[2017-11-10 12:19] VITALS: BP 178/75; PULSE 67; TEMP 37.3; O2SAT 99; Ht 162.6 cm; Wt 71.5 kg
[2017-11-10] MEDS ORDERED: CEFAZOLIN SOD 2000MG/15 ML IV PUSH ONE (12:58)
--- NOTE | 2017-11-10 14:39 | History & Physical Bridge Note ---
H&P Re-Evaluation Bridge Note: I have examined the patient, reviewed the History & Physical and in the interval since the performance of the History & Physical I have noted the following changes of clinical significance: No changes noted
[2017-11-10] MEDS ORDERED: LIDOCAINE HCL 1% 20 ML VIAL ONE (14:58)
[2017-11-10] MEDS ORDERED: FENTANYL CITRATE INJ 50 MCG/1 ML 2 ML VIAL ONE (15:02)
[2017-11-10] MEDS ORDERED: MIDAZOLAM HCL 1 MG/ML 2ML VIAL ONE ×2 (15:02→15:35)
[2017-11-10] MEDS ORDERED: ONDANSETRON INJ 2 MG/ML 2 ML VIAL IV PRN ×2 (15:15→16:30)
[2017-11-10] MEDS ORDERED: ATROPINE SULFATE 0.1 MG/ML 5ML SYR IV PRN (15:15)
[2017-11-10] MEDS ORDERED: LIDOCAINE HCL 2% 2 ML VIAL (20MG/ML) ONE (15:36)
[2017-11-10] MEDS ORDERED: PROPOFOL IV EMULSION 10 MG/ML 20 ML VIAL ONE (15:36)
[2017-11-10] MEDS ORDERED: ONDANSETRON INJ 2 MG/ML 2 ML VIAL ONE (15:45)
[2017-11-10] MEDS ORDERED: SODIUM CHLORIDE 0.9% 1000ML 1,000 ML IV SCH (16:16)
--- NOTE | 2017-11-10 16:16 | [facility] Post Operative Brief Note ---
Immediate Operative Summary Operative Date November 10, 2017. Pre-Operative Diagnosis Breast cancer requiring chemotherapy Post-Operative Diagnosis Breast cancer requiring chemotherapy Procedure(s) Performed Placement of Aport to left subclavian Surgeon Dr. Tobi Boyce Triage Assistant Surgeon(s) None Estimated Blood Loss 7ml Findings Consistent with Post-Op Diagnosis Specimens none per surgeon Drains None Anesthesia Type MAC Complication(s) none Disposition Disposition: Recovery Room / PACU
--- NOTE | 2017-11-10 16:19 | Discharge Instructions ---
Discharge Instructions Date of Service November 10, 2017. Admission Reason for Admission: Circulatory System Disorder, Breast cancer Discharge Discharge Diagnosis / Problem: Same Discharge Goals Goal(s): Improve disease control Activity Recommendations Activity Limitations: per Instructions/Follow-up section Lifting Limitations: no more than 10 pounds (with left arm for about one week) . Instructions / Follow-Up Instructions / Follow-Up MEDICATIONS: Resume previous medications unless instructed otherwise by your surgeon. * Ibuprofen 600 mg every 6 hours with food * Tylenol 650 mg every 4 hours, as needed for pain SPECIAL CARE INSTRUCTIONS: * Your A-port may be used immediately. * May shower in 24 hours. Let water run over area and pat dry. * Leave op-site dressing on for 3 days and then remove. * Call the surgeon's office with any questions or concerns - (ex. temperature higher than 101 degrees F, excessive bleeding or pain). FOLLOW UP VISIT: If not already scheduled, please call the office to schedule a two week follow- up appointment. Office number Current Hospital Diet Patient's current hospital diet: Discharge Diet Recommended Diet: Regular Diet Procedures Procedures Performed: Placement of Aport to left subclavian Pending Studies Studies pending at discharge: no Medical Emergencies . Who to Call and When: Medical Emergencies: If at any time you feel your situation is an emergency, please call 911 immediately. . Non-Emergent Contact Non-Emergency issues call your: Primary Care Provider, Surgeon Call Non-Emergent contact if: your pain is worsening, wound has increased redness, wound has increased pain . "Provider Documentation" section prepared by Tobi Boyce. .
[2017-11-10] MEDS ORDERED: OXYCODONE/ACETAMINOPHEN 5-325 TAB PO PRN (16:30)
[2017-11-10] MEDS ORDERED: MoRPHine SULFATE 4 MG/ML 1 ML CARP\\VIAL IV PRN (16:30)
--- NOTE | 2017-11-10 16:42 | DIAGNOSTIC IMAGING REPORT ---
CHEST ONE VIEW PORTABLE HISTORY: 47 years-old Female S/P Aport placement status post placement of a left subclavian [id number] catheter COMPARISON: Chest radiograph 10/28/2017 TECHNIQUE: Portable AP view of the chest FINDINGS: Status post placement of a left subclavian Cdyxzr-m-Hocl catheter with distal tip terminating in the expected region of the caudal SVC just proximal to the superior cavoatrial junction. No postprocedural pneumothorax identified. Cardiac mediastinal and hilar silhouettes are within normal limits. No lobar airspace consolidation, pleural effusion or overt pulmonary edema. Mild right hemidiaphragmatic elevation. Mild elevation of the right shoulder. Bones appear grossly intact. IMPRESSION: Status post placement of a left subclavian Wpwxam-[id number]-Zmbw catheter with distal tip terminating just proximal to the expected region of the superior cavoatrial junction. No postprocedural pneumothorax identified. The above report was generated using voice recognition software. It may contain grammatical, syntax or spelling errors. Electronically signed by: Jair Doran M.D. 11/10/2017 4:41 PM Dictated Date/Time: 11/10/2017 4:39 PM
--- NOTE | 2017-11-10 16:45 | Anesthesiology Progress Note ---
Anesthesia Post Op Note Date & Time November 10, 2017 at 16:45 Vital Signs Pain Intensity: 0 Vital Signs Past 12 Hours Date Time Temp Pulse Resp B/P (MAP) Pulse Ox O2 Delivery O2 Flow Rate FiO2 11/10/17 16:40 36.5 68 14 131/79 100 Room Air 11/10/17 16:30 75 17 115/86 100 Room Air 11/10/17 16:20 36.7 73 16 124/71 98 Room Air 11/10/17 12:19 37.3 67 18 178/75 (109) 99 Room Air Notes Mental Status: alert / awake / arousable, participated in evaluation Pt Amnestic to Procedure: Yes Nausea / Vomiting: adequately controlled Pain: adequately controlled Airway Patency, RR, SpO2: stable & adequate BP & HR: stable & adequate Hydration State: stable & adequate Anesthetic Complications: no major complications apparent
[2017-11-10 16:50] VITALS: BP 131/67; PULSE 71; TEMP 36.8; O2SAT 98
--- NOTE | 2017-11-10 18:31 | OPERATIVE REPORT ---
DATE OF OPERATION: 11/10/2017 PREOPERATIVE DIAGNOSIS: Need for long-term central venous access. POSTOPERATIVE DIAGNOSIS: Need for long-term central venous access. PROCEDURE: Placement of a port tunneled central venous access catheter with port via left subclavian approach. SURGEON: Tobi Boyce MD FINDINGS: The tip of the catheter was placed near the junction of the SVC and right atrium. There was good blood return and was easily flushed without leaking. TECHNIQUE: The patient was given intravenous sedation and the area was prepped and draped in the usual sterile fashion. The skin and subcutaneous tissue in the left infraclavicular area were anesthetized with 1% Xylocaine without epinephrine. The left subclavian vein was entered on the first attempt and the wire passed with ease. The tip of the wire was confirmed in the right atrium by fluoroscopy. A small incision was made at the exit site of the wire and a pocket was created inferior to that to soft turn on the catheter. The site for the port was chosen and the skin and subcutaneous tissue superior to that area were anesthetized with 1% Xylocaine without epinephrine. Skin incision was made and was carried down through the subcutaneous tissue. Hemostasis was obtained at all times using electrocautery. A prepectoral pocket was created inferior to the incision. There was no bleeding. The port fit nicely. The introducer sheath device was passed over the wire under fluoroscopic guidance. The introducer and wire were removed and the catheter was passed through the sheath and the tip of the catheter was seen to enter the right atrium using fluoroscopy. The sheath was peeled. Tunneling device was used to tunnel the catheter from the infraclavicular incision to the port incision. Fluoroscopy was then used to size the catheter and the catheter was attached to the port with ease. The port was secured to the prepectoral fascia using interrupted 2-0 Prolene sutures. The port incision was closed with a running 2-0 Vicryl in the deep subcutaneous tissue, running 3-0 Vicryl in the superficial subcutaneous tissue, and a running 4-0 Monocryl in a subcuticular fashion for the skin. The infraclavicular incision was closed with an interrupted subcuticular suture of 4-0 Monocryl. The skin was cleansed, dried, and a dressing placed. The estimated blood loss was 7 mL. Sponge, needle and instrument counts were correct prior to closure. The patient tolerated the surgical procedure without complication and was transferred to recovery. I attest to the content of the Intraoperative Record and any orders documented therein. Any exception s are noted below.
== END 2017-11-10 17:14 | disposition home or self-care (01) ==
LOC: C.ACU 11:39
PROVIDERS: ATTEND Surgery
DX: C50.919 Malignant neoplasm of unspecified site of unspecified female breast (principal); Z79.02 Long term (current) use of antithrombotics/antiplatelets; Z79.82 Long term (current) use of aspirin; I25.10 Atherosclerotic heart disease of native coronary artery without angina pectoris; I10 Essential (primary) hypertension; I21.4 Non-ST elevation (NSTEMI) myocardial infarction; L40.9 Psoriasis, unspecified; Z88.2 Allergy status to sulfonamides; Z86.14 Personal history of Methicillin resistant Staphylococcus aureus infection